=== PATIENT | male | born 1970 | race Caucasian/White ===

== ENCOUNTER → 2020-09-23 10:42 | Outpatient (BNVA) | payer MEDICAID, SELFPAY | PROVIDERS: Family Provider Family Medicine; PCP Nurse Practitioner Family; Visit Provider Nurse Practitioner Family | DX: M54.9 Dorsalgia, unspecified (principal); R81 Glycosuria; Z12.5 Encounter for screening for malignant neoplasm of prostate | CPT/HCPCS: 36416; 81000; 82962; G0103 ==

== ENCOUNTER 2020-09-24 11:52 | Outpatient (CLI) | payer MEDICAID, SELFPAY ==
--- NOTE | 2020-09-24 12:45 | US_ITS ---
WS: [id number] SCROTAL ULTRASOUND EXAMINATION CLINICAL INFORMATION: N50.89 - Other specified disorders of the male genital or... COMPARISON: None. FINDINGS: TESTES Normal in size and echotexture, without focal lesion. Color Doppler: Normal color Doppler flow pattern. Right testes size: 4.7 cm x 2.5 cm x 3.1 cm. Left testes size: 4.5 cm x 2.4 cm x 2.2 cm. EPIDIDYMIDES Right epididymal cyst measuring 3.0 x 2.7 x 2.4 mm. Normal left epididymis. Right epididymis size: 0.9 cm x 0.9 cm x 1.2 cm. Left epididymitis size: 0.9 cm x 0.9 cm x 0.9 cm. HYDROCELE Small bilateral hydroceles. VARICOCELE Left varicocele. OTHER FINDINGS Normal inguinal canals. US/US scrotum [id number] IMPRESSION: 1. Small bilateral hydroceles. 2. Right epididymal cyst measuring 3.0 x 2.7 x 2.4 mm 3. Left varicocele measuring 1.6 x 0.8 cm
== END 2020-09-24 11:53 | disposition home or self-care (01) ==
LOC: RAD 11:54
PROVIDERS: PCP Nurse Practitioner Family; Visit Provider Nurse Practitioner Family
DX: N50.89 Other specified disorders of the male genital organs (principal); N43.3 Hydrocele, unspecified; N50.3 Cyst of epididymis; I86.1 Scrotal varices
CPT/HCPCS: 76870

== ENCOUNTER → 2020-10-08 10:50 | Outpatient (BNVA) | payer MEDICAID, SELFPAY | PROVIDERS: PCP Nurse Practitioner Family; Referring Provider Nurse Practitioner Family; Visit Provider Urology | DX: Z12.5 Encounter for screening for malignant neoplasm of prostate (principal); R97.20 Elevated prostate specific antigen [PSA]; N50.811 Right testicular pain | CPT/HCPCS: 81003; G0103 ==

== ENCOUNTER 2020-10-12 14:24 | Outpatient (CLI) | payer MEDICAID, SELFPAY ==
--- NOTE | 2020-10-12 14:30 | XR_ITS ---
WS: [id number] LUMBAR SPINE TECHNIQUE: 3 views of the lumbar spine CLINICAL INFORMATION: M54.5 - Low back pain COMPARISON: None. FINDINGS: Mild lumbar curve convex left. 5 nonrib-bearing lumbar vertebral bodies. No acute fractures. Trace re trolisthesis L2 on L3 and L3 on L4 and L4 on L5. Disc space narrowing worse at L2-L3, L3-L4, L5-S1. M oderate facet arthropathy L5-S1. XR/XR lumbar spine 2-3V* [id number] IMPRESSION: 1. Mild lumbar curve convex left. 2. Slight retrolisthesis L2 on L3, L3 on L4 and L4 on L5 3. Disc space narrowing worse at L2-L3, L3-L4, L5-S1.
== END 2020-10-12 14:25 | disposition home or self-care (01) ==
PROVIDERS: PCP Nurse Practitioner Family; Visit Provider Nurse Practitioner Family
DX: M54.5 Low back pain (principal)
CPT/HCPCS: 72100

== ENCOUNTER 2020-10-30 14:35 | Outpatient (CLI) | payer MEDICAID, SELFPAY ==
--- NOTE | 2020-10-30 15:15 | MR_ITS ---
WS: [id number] MRI LUMBAR SPINE NONCONTRAST HISTORY: M54.16 - Radiculopathy, lumbar region COMPARISON: None available. TECHNIQUE: Sagittal and axial multisequence imaging is submitted. Increase in the lumbar lordosis. Posterior alignment is normal. No fractures or marrow edema. Mild disc space narrowing and desiccation throughout the lumbar spine but most significant at L5-S1. Conus terminates normally at L1-2 disc level. L1-L2: Normal. L2-L3: Mild annular disc bulging. Small annular fissures within the disc bulging. No focal component. Mild facet hypertrophy. Mild LEFT foraminal narrowing. L3-L4: Mild annular disc bulge with mild facet and ligamentum flavum hypertrophy. Mild bilateral suba rticular recess and LEFT foraminal narrowing. L4-L5: Mild annular disc bulging with a shallow central disc protrusion. Disc protrusion encroaches u preet the L5 nerve roots with no high-grade stenosis or displacement. Mild foraminal narrowing. L5-S1: Mild annular disc bulging. Facet joint arthritis and osteophytes encroach into the lateral rec esses bilaterally. Mild central with moderate LEFT subarticular recess stenosis and mild RIGHT subart icular recess stenosis and mild LEFT foraminal stenosis. MR/MR lumbar spine wo con* [id number] IMPRESSION: 1. Multilevel mild degenerative disc disease with mild to moderate facet arthr itis. 2. Moderate LEFT subarticular recess stenosis at L5-S1. 3. Mild disc protrusion upon the L5 nerve roots bilaterally at L4-5. No signif icant central or foraminal stenosis. 4. Mild central stenosis at L5-S1 with mild RIGHT subarticular recess stenosis .
== END 2020-10-30 14:36 | disposition home or self-care (01) ==
LOC: RADSHAW 14:40
PROVIDERS: PCP Nurse Practitioner Family; Visit Provider Nurse Practitioner Family
DX: M54.16 Radiculopathy, lumbar region (principal); M51.36 Other intervertebral disc degeneration, lumbar region; M51.26 Other intervertebral disc displacement, lumbar region; M48.07 Spinal stenosis, lumbosacral region
CPT/HCPCS: 72148

== ENCOUNTER → 2020-11-10 09:49 | Outpatient (BNVA) | payer MEDICAID, SELFPAY | PROVIDERS: PCP Nurse Practitioner Family; Visit Provider Nurse Practitioner Family | DX: R97.20 Elevated prostate specific antigen [PSA] (principal); E78.5 Hyperlipidemia, unspecified; I10 Essential (primary) hypertension; N50.811 Right testicular pain | CPT/HCPCS: 80053; 80061; 84153 ==

== ENCOUNTER 2021-01-28 14:03 | Outpatient (CLI) | payer MEDICAID, SELFPAY ==
[2021-01-28] MEDS: iohexol 300 mg/mL 50 mL Btl PO (14:28)
--- NOTE | 2021-01-28 14:30 | CT_ITS ---
WS: [id number] CT CHEST AND ABDOMEN WITH CONTRAST HISTORY: R91.1 - Solitary pulmonary nodule/ HEPATIC LESION TECHNIQUE: Axial imaging is performed through the chest and abdomen with IV and oral contrast.. Sagit per and coronal reformats. All CT scans at [facility] use at least one of these dose optimiza tion techniques: automated exposure control; mA and/or kV adjustment per patient size (includes targe bertrand exams where dose is matched to clinical indication); or iterative reconstruction. CONTRAST: Omnipaque 300; 95 mL IV. DLP: 1998.12 mGy-cm. COMPARISON: 08/22/[address]: Well-expanded lungs. There is a small lobulated nodule at the medial LEFT lower lobe measuring 11 x 1 6 mm. This nodule was present on 08/22/2018 without increase in size. No additional suspicious mass or pneumonia. No pericardial or pleural effusions. Heart size is normal. Normal size aorta and pulmonary artery. No adenopathy of any significance. Mild thickening of the inferior esophagus. Mild increase in thoracic kyphosis with degenerative disc disease in the mid to lower thoracic spine. Abdomen CT: Multiple low-attenuation masses within the liver consistent with cysts. These are stable since 08/23/19 19. The largest along the inferior posterior RIGHT lobe measures 3.5 x 3.6 cm. There is also diffuse mild hepatic steatosis. No solid mass or bile duct dilatation. Prior cholecystectomy. Normal spleen a nd adrenal glands. Too small to characterize hypodensity in the mid LEFT kidney. Stable since 2019. N o adrenal mass or obstruction. No adenopathy or ascites. No osteoblastic or osteolytic bone disease. CT/CT chest abdomen w con* IMPRESSION: 1. Long-term stability of a slightly lobulated pulmonary nodule in the medial LEFT lower lobe measuring 11 x 16 mm. 2. Hepatic cysts. Stable since 08/22/2018. 3. Prior cholecystectomy.
[2021-01-28] MEDS: iohexol 300 mg/mL 100 mL Btl IV (14:42)
== END 2021-01-28 14:04 | disposition home or self-care (01) ==
PROVIDERS: PCP Nurse Practitioner Family; Visit Provider Nurse Practitioner Family
DX: K76.9 Liver disease, unspecified (principal); R91.1 Solitary pulmonary nodule; K76.89 Other specified diseases of liver; Z90.49 Acquired absence of other specified parts of digestive tract
CPT/HCPCS: 71260; 74160; Q9967

== ENCOUNTER → 2021-05-10 11:33 | Outpatient (BNVA) | payer MEDICAID, SELFPAY | PROVIDERS: PCP Nurse Practitioner Family; Visit Provider Nurse Practitioner Family | DX: R97.20 Elevated prostate specific antigen [PSA] (principal); R19.7 Diarrhea, unspecified; E04.1 Nontoxic single thyroid nodule; K92.1 Melena; R91.1 Solitary pulmonary nodule | CPT/HCPCS: 84153; 84439; 84443; 87506 ==

== ENCOUNTER → 2021-05-21 09:10 | Outpatient (BNVA) | payer MEDICAID, SELFPAY | PROVIDERS: PCP Nurse Practitioner Family; Visit Provider Surgery | DX: Z20.822 Contact with and (suspected) exposure to COVID-19 (principal) | CPT/HCPCS: 87635 ==

== ENCOUNTER → 2021-06-21 12:06 | Outpatient (BNVA) | payer MEDICAID, SELFPAY | PROVIDERS: PCP Nurse Practitioner Family; Visit Provider Surgery | DX: Z01.812 Encounter for preprocedural laboratory examination (principal); Z20.822 Contact with and (suspected) exposure to COVID-19 | CPT/HCPCS: 87635 ==

== ENCOUNTER 2021-06-23 06:32 | Day surgery (SDC) | payer MEDICAID, SELFPAY ==
[2021-05-24 09:50] VITALS: BMI 30.4
[2021-06-23] MEDS: sodium chloride 0.9% 1,000 ML 30 ML IV (08:13)
--- NOTE | 2021-06-23 08:38 | ANES.PREANE2 ---
Pre-Anesthetic Assessment Height/Weight: Height 1.75 m Weight 95.708 kg Preop Diagnosis: upper gi symptoms Operation Date: 05/26/21 13:00 Proposed Procedures p EGD possilbe balloon dilation 19973\r10.13(Not Applicable) - Isreal Cardenas MD s colonoscopy 82809/k52.9(Not Applicable) - Isreal Cardenas MD Operation Date: 06/23/21 08:45 Proposed Procedures p EGD Possible Dilation 99970/r10.13(Not Applicable) - Isreal Cardenas MD s Colonoscopy(Not Applicable) - Isreal Cardenas MD Familial anesthetic complications: None Was Beta Misys taken within 24 hours: N/A Was Clonidine taken within 24 hours: N/A Last intake: Intake Last Liquid Date 06/22/21 Last Liquid Time 20:00 Last Solid Date 06/21/21 Last Solid Time 19:00 Social No alcohol and No tobacco Exam alert, oriented x 3, clear to auscultation bilaterally and regular rate & rhythm Airway Submandibular: within normal limits Cervical ROM: within normal limits Mallampati: Class II Dentition: false Pulmonary Lung mass GI Gastroesophageal Reflux Disease Anesthetic Plan ASA status: 2 Anesthesia: MAC Medications/Allergies Home Medications Medication Instructions Recorded Confirmed Last Taken Type pantoprazole 40 mg tablet,delayed 40 mg PO BID tab 05/18/21 06/21/21 06/21/21 History release (Protonix) sucralfate 1 gram tablet (Carafate) 1 g PO Q6H tab 05/18/21 06/21/21 06/21/21 History cyclobenzaprine 10 mg tablet 10 mg PO TID PRN #30 tab 06/03/21 06/21/21 06/21/21 Rx Allergies Allergy/AdvReac Type Severity Reaction Status Date / Time No Known Allergies Allergy Verified 06/16/21 08:54 Current Medications Generic Name Dose Route Start Last Admin Trade Name Freq PRN Reason Stop Dose Admin Sodium Chloride 1,000 mls @ 30 mls/hr 06/23/21 07:15 06/23/21 08:13 Sodium Chloride 0.9% IV 06/24/21 07:14 30 mls/hr .Q24H TIFFANY Administration PFSH Anesthesia Medical History GERD (gastroesophageal reflux disease) Testalgia Surgical History H/O esophagogastroduodenoscopy H/O neck surgery for trauma Status post colonoscopy Status post laparoscopic cholecystectomy Family History Father , AT AGE 50'S Lung disease Mother Lung disease COPD Social History Smoking and tobacco status: never smoked Alcohol intake: never Marital status: Current occupational status: unemployed History of recent travel: No Data Anesthesia Cardiac Studies: No Data to Display
--- NOTE | 2021-06-23 08:57 | P.HP_ITS ---
Same Day Surgery H&P Indication for Procedure/HPI DATE OF PROCEDURE: June 23, 2021 CHIEF COMPLAINT/INDICATIONFOR SURGICAL PROCEDURE: GERD/diarrhea PREOP DIAGNOSIS: upper gi symptoms PLANNED PROCEDURE: Operation Date: 05/26/21 13:00 Proposed Procedures p EGD possilbe balloon dilation 66073\r10.13(Not Applicable) - Isreal Cardenas MD s colonoscopy 86115/k52.9(Not Applicable) - Isreal Cardenas MD Operation Date: 06/23/21 08:45 Proposed Procedures p EGD Possible Dilation 85509/r10.13(Not Applicable) - Isreal Cardenas MD s Colonoscopy(Not Applicable) - Isreal Cardenas MD Medications/Allergies* Home Medications Medication Instructions Recorded Confirmed Type pantoprazole 40 mg tablet,delayed 40 mg PO BID tab 05/18/21 06/21/21 History release (Protonix) sucralfate 1 gram tablet (Carafate) 1 g PO Q6H tab 05/18/21 06/21/21 History Allergies/Adverse Reactions Allergy/AdvReac Type Severity Reaction Status Date / Time No Known Allergies Allergy Verified 06/16/21 08:54 Current Medications: Generic Name Dose Route Start Last Admin Trade Name Freq PRN Reason Stop Dose Admin Sodium Chloride 1,000 mls @ 30 mls/hr 06/23/21 07:15 06/23/21 08:13 Sodium Chloride 0.9% IV 06/24/21 07:14 30 mls/hr .Q24H TIFFANY Administration Pertinent History/Comorbid Conditions* Medical History (Updated 06/17/21 @ 00:23 by Eduar Esposito MD) GERD (gastroesophageal reflux disease) Testalgia Surgical History (Updated 05/18/21 @ 14:06 by Isreal Cardenas MD) H/O esophagogastroduodenoscopy H/O neck surgery for trauma Status post colonoscopy Status post laparoscopic cholecystectomy Family History (Updated 10/08/20 @ 10:46 by Dayana Kerns LPN) Father, AT AGE 50'S Lung disease Father Mother COPD Social History Smoking and tobacco status: never smoked Alcohol intake: never Marital status: Current occupational status: unemployed History of recent travel: No Pertinent Exam Findings alert, oriented x 3 and regular rate & rhythm Recommendations Surgery/Procedure today Coding Level of Care Code Acute Press Operator Automatic for Chg Fwtino
[2021-06-23 09:31] VITALS: BP 109/72; PULSE 84; RESP 12; TEMP 36.1; O2SAT 97
--- NOTE | 2021-06-23 09:32 | ANE.PACU2 ---
Inpatient post-anesthesia follow up: Airway intact: Yes Vital signs: Temperature Pulse Rate Respiratory Rate Blood Pressure Pulse Oximetry Oxygen Delivery Me thod Room Air Oxygen Flow Rate Fraction of Inspir ed Oxygen Hydration adequate: Yes Nausea and vomiting: No Pain level: 1 Mental status: Baseline
[2021-06-23 09:43] VITALS: BP 113/85; PULSE 76; RESP 16; O2SAT 96
== END 2021-06-23 10:04 | disposition home or self-care (01) ==
PROVIDERS: PCP Nurse Practitioner Family; Visit Provider Surgery
PROC: 0DJD8ZZ Inspection of Lower Intestinal Tract, Via Natural or Artificial Opening Endoscopic (ICD-10-PCS; CPT 45378; 2021-06-23 08:45)
DX: K52.9 Noninfective gastroenteritis and colitis, unspecified (principal); R10.13 Epigastric pain; R13.12 Dysphagia, oropharyngeal phase; K29.70 Gastritis, unspecified, without bleeding; K57.30 Diverticulosis of large intestine without perforation or abscess without bleeding
CPT/HCPCS: 43239; 45380; 82274; 83630; 87493; 87506; 88305; J2704; J7030

== ENCOUNTER 2021-07-08 09:44 | Outpatient (CLI) | payer MEDICAID, SELFPAY ==
--- NOTE | 2021-07-08 10:15 | MR_ITS ---
WS: [id number] MRI LUMBAR SPINE NONCONTRAST TECHNIQUE: Sagittal T1, T2 and STIR imaging. Axial T1 and T2 imaging. CLINICAL INFORMATION: M54.9 - Dorsalgia, unspecified COMPARISON: MRI October 30, 2020 FINDINGS: Mild lumbar curve. No acute compression. Mild disc bulging L2-L3 L3-L4 and L4-L5. Alignment is unchan ged since October 30, 2020. L1-L2: Mild disc bulging and osteophytic ridging. Moderate facet arthropathy. Spinal canal and forame n are patent. L2-L3: Mild disc bulging and osteophytic ridging. Slight retrolisthesis. Impingement subarticular rec ess bilaterally and traversing L3 nerve roots. Moderate facet arthropathy. Mild central canal stenosi s. L3-L4: Mild annular bulging with slight effacement of ventral thecal sac. Mild facet arthropathy. Mil d RIGHT and no significant LEFT foraminal narrowing. L4-L5: Mild annular bulging with slight effacement of the ventral thecal sac. Mild central canal sten osis. Slight narrowing of the LEFT subarticular recess. Mild facet arthropathy. Foramen are patent. L5-S1: Mild disc bulging and osteophytic ridging. Slight narrowing of the subarticular recess bilater ally. Moderate facet arthropathy. Spinal canal and foramen are patent. Postoperative changes ACDF cervical spine seen on the emts imaging. Small central protrusion in the lower thoracic spine at T10 and T11. MR/MR lumbar spine wo con* [id number] IMPRESSION: 1. Slight retrolisthesis L2-L3 with mild central canal stenosis and slight nilton rowing of the subarticular recess bilaterally appears slightly progressed tony red to previous. 2. Mild central canal stenosis L3-L4 and L4-L5 with mild annular bulging and s light impingement traversing LEFT L5 nerve root appears stable compared to prev ious. 3. Mild annular bulging L5-S1 with slight impingement traversing S1 nerve root s bilaterally. This is unchanged from previous. 4. Mild RIGHT L2-L3 RIGHT L3-L4 and bilateral L4-L5 foraminal narrowing. 5. Lfxn-gv-nqdzahuk facet arthropathy worse at L2-L3, L4-L5 and L5-S1.
== END 2021-07-08 09:45 | disposition home or self-care (01) ==
LOC: RAD 09:45
PROVIDERS: PCP Nurse Practitioner Family; Visit Provider Nurse Practitioner Family
DX: R20.0 Anesthesia of skin (principal); M48.061 Spinal stenosis, lumbar region without neurogenic claudication; M51.26 Other intervertebral disc displacement, lumbar region; M47.816 Spondylosis without myelopathy or radiculopathy, lumbar region; M47.817 Spondylosis without myelopathy or radiculopathy, lumbosacral region
CPT/HCPCS: 72148

== ENCOUNTER → 2021-07-14 08:02 | Outpatient (BNVA) | payer MEDICAID, SELFPAY | PROVIDERS: PCP Nurse Practitioner Family; Visit Provider Internal Medicine Pulmonary Disease | DX: R91.1 Solitary pulmonary nodule (principal); R06.00 Dyspnea, unspecified; R42 Dizziness and giddiness; Z77.22 Contact with and (suspected) exposure to environmental tobacco smoke (acute) (chronic); K21.9 Gastro-esophageal reflux disease without esophagitis; R97.20 Elevated prostate specific antigen [PSA]; R13.10 Dysphagia, unspecified | CPT/HCPCS: 36415; 85025; 99214 ==

== ENCOUNTER 2021-07-14 09:30 | Outpatient (CLI) | payer MEDICAID, SELFPAY | END 2021-07-14 09:31 | disposition home or self-care (01) | LOC: LAB 09:31 | PROVIDERS: PCP Nurse Practitioner Family; Visit Provider Internal Medicine Pulmonary Disease | DX: R91.1 Solitary pulmonary nodule (principal); R06.00 Dyspnea, unspecified; R06.02 Shortness of breath | CPT/HCPCS: 82785; 83880; 86003; 99214 ==

== ENCOUNTER 2021-07-23 13:46 | Outpatient (CLI) | payer MEDICAID, SELFPAY ==
--- NOTE | 2021-07-23 14:00 | US_ITS ---
WS: [id number] THYROID ULTRASOUND HISTORY: E04.1 - Nontoxic single thyroid nodule COMPARISON: None available. Right lobe: 1.3 cm x 1.5 cm x 4.9 cm (w x ap x l). Volume: 5.3 cm3. Normal size thyroid. There are several benign colloid cysts throughout the gland. Spongiform nodule i n the mid gland measures 1.0 x 0.7 x 0.6 cm. Left lobe: 1.6 cm x 1.5 cm x 4.9 cm (w x ap x l). Volume: 6.3 cm3. Normal size gland. There are a few small colloid cysts. No dominant solid nodule. Isthmus: 0.3 cm. There are several small benign-appearing cervical chain lymph nodes. US/US thyroid 51459 IMPRESSION: 1. Normal size thyroid. 2. No solid nodule with concerning calcifications. 3. Bilateral colloid nodules and RIGHT spongiform nodule. Please note recent P ET/CT imaging from 07/03/2021 demonstrated no areas of hypermetabolism in the th yroid.
== END 2021-07-23 13:47 | disposition home or self-care (01) ==
PROVIDERS: PCP Nurse Practitioner Family; Visit Provider Nurse Practitioner Family
DX: E04.2 Nontoxic multinodular goiter (principal)
CPT/HCPCS: 76536

== ENCOUNTER → 2021-08-03 08:40 | Outpatient (BNVA) | payer MEDICAID, SELFPAY | PROVIDERS: PCP Nurse Practitioner Family; Visit Provider Nurse Practitioner Family | DX: R97.20 Elevated prostate specific antigen [PSA] (principal) | CPT/HCPCS: 84153 ==

== ENCOUNTER 2022-01-20 10:01 | Oncology outpatient (recurring) (ONCR) | payer MEDICAID, SELFPAY ==
--- NOTE | 2022-01-20 11:35 | N.ONRAD NP_ITS ---
Radiation Oncology Consultation Patient Name: Jone Boogie Date of : 1970 Date of Service: 01/20/2022 Attending Physician: Robert Damon M.D. Jone Boogie was seen in consultation this morning at the request of Marcelo Coelho M.D. for consideration of prostate radiotherapy in the management of prostate cancer. He initially was identified to have an elevated PSA level (6.7 ng/mL) in September 2020. A transrectal ultrasound-guided biopsy of the prostate gland performed in December 2020 diagnosed atypical small acinar proliferation (PAYTON) within the left lobe. A PSA level obtained in July of 2021 was 10.8 ng/mL. A repeat TRUS biopsy obtained on September 14, 2021 identified an adenocarcinoma from the left lobe of the prostate with a Mary score of 6 (1/6 cores with 5% of the sample involved) and PAYTON reported in the specimens from the right and left lobes. A Genomic Prostate Score reported a result of 33 indicating a low likelihood of adverse pathology at radical prostatectomy. A PSMA scan ordered on November 30, 2021 identified activity in the peripheral zones of the prostate bilaterally (SUV 4.8), the left sixth rib (SUV 5.3), and subtle increase of tracer accumulation in the bilateral iliac bones that was associated with sclerotic changes. The patient presents for evaluation regarding radiotherapy treatment options. I discussed the [place] [employer] Staging for prostate cancer and the patient's presumed clinical stage IIA (T1CN0) favorable intermediate risk prostate cancer specific to the his diagnosis. In consideration of the PSMA scan findings, I will request a biopsy of the rib lesion. I have also ordered labs (CBC, CMP, PSA, & Testosterone). Treatment recommendations will be provided pending the results of the biopsy. The patient???s treatment plan was discussed with Marcelo Coelho M.D. Signed by: Dr. Robert Damon 02/04/2022 10:32:17 AM
[2022-01-20 13:05] LABS: Basophils # 0.1 10^3/uL (0.0-0.1); Eosinophils # 0.2 10^3/uL (0.0-0.8); Eosinophils % 2.6 %; Hematocrit 46.5 % (42.0-52.0); Hemoglobin 15.8 g/dL (11.7-16.6); Lymphocytes # 2.1 10^3/uL (0.8-4.8); Mean Corpuscular Hemoglobin 30.5 pg (28.0-34.0); Mean Corpuscular Volume 89.8 fl (80-94); Mean Platelet Volume 8.8 fL (7.4-10.4); Monocytes # 0.6 10^3/uL (0.2-0.9); Monocytes % 10.7 %; Neutrophils # 2.81 10^3/uL (1.8-7.7); Neutrophils % 48.7 %; Nucleated Red Blood Cells % 0 %; Platelet Count 264 10^3/cmm (130-400); Red Blood Count 5.18 10^6/uL (4.1-5.3); Red Cell Distribution Width 11.9 % (12.1-15.1); White Blood Count 5.8 10^3/uL (4.0-10.0)
[2022-01-20 13:44] LABS: Alanine Aminotransferase 25 U/L (0-41); Albumin Level 4.5 g/dL (3.5-5.2); Alkaline Phosphatase 104 U/L (40-130); Anion Gap 12.7 (5-19); Aspartate Amino Transferase 18 U/L (0-40); Blood Urea Nitrogen 11 mg/dL (6-20); Calcium 9.1 mg/dL (8.5-10.5); Carbon Dioxide 28 mmol/L (22-29); Chloride 103 mmol/L (98-107); Globulin 2.4 g/dL (1.3-4.6); Glomerular Filtration Rate 78.2 mL/min (90-130); Glucose 91 mg/dL (65-115); Osmolality Calculated 287 mOsm/kg (285-295); Potassium 4.7 mmol/L (3.5-5.1); Sodium 139 mmol/L (136-145); Testosterone Total 327.9 ng/dL (193-740); Total Bilirubin 0.6 mg/dL (0.15-1.2); Total Protein 6.9 g/dL (6.6-8.7)
== END 2022-01-21 23:59 | disposition home or self-care (01) ==
PROVIDERS: PCP Nurse Practitioner Family; Visit Provider Radiology Radiation Oncology
DX: C61 Malignant neoplasm of prostate (principal)
CPT/HCPCS: 36415; 80053; 84153; 84403; 85025

== ENCOUNTER 2022-02-10 14:39 | Oncology outpatient (recurring) (ONCR) | payer MEDICAID, SELFPAY ==
--- NOTE | 2022-02-04 10:28 | ONCRAD EPV_ITS ---
Radiation Oncology Follow-Up Note Patient Name: Jone Boogie Date of : 1970 Date of Service: 02/04/2022 Attending Physician: Robert Damon M.D. Jone Boogie returned for a scheduled appointment to discuss the treatment management for a recently diagnosed prostate cancer. He initially was identified to have an elevated PSA level (6.7 ng/mL) in September 2020. A transrectal ultrasound-guided biopsy of the prostate gland performed in December 2020 diagnosed atypical small acinar proliferation (PAYTON) within the left lobe. A PSA level obtained in July of 2021 was 10.8 ng/mL. A repeat TRUS biopsy obtained on 2021 identified an adenocarcinoma from the left lobe of the prostate with a Nixon score of 6 (1/6 cores with 5% of the sample involved) and PAYTON reported in the specimens from the right and left lobes. A Genomic Prostate Score reported a result of 33 indicating a low likelihood of adverse pathology at radical prostatectomy. A PSMA scan ordered on November 30, 2021 identified activity in the peripheral zones of the prostate bilaterally (SUV 4.8), the left sixth rib (SUV 5.3), and subtle increase of tracer accumulation in the bilateral iliac bones that was associated with sclerotic changes. A biopsy was not able to be performed due to size. I will request a medical oncology consultation for ADT prior to implementation of radiation treatment. I reviewed the potential toxicities of pelvic radiotherapy. The patient has verbalized understanding would like to proceed as recommended. Signed by: Dr. Robert Damon 02/04/2022 10:27:55 AM
== END 2022-02-21 23:59 | disposition home or self-care (01) ==
PROVIDERS: PCP Nurse Practitioner Family; Visit Provider Radiology Radiation Oncology
DX: C61 Malignant neoplasm of prostate (principal); M89.9 Disorder of bone, unspecified
CPT/HCPCS: 99204; 99215

== ENCOUNTER 2022-03-03 09:12 | Oncology outpatient (recurring) (ONCR) | payer MEDICAID, SELFPAY ==
[2022-03-03 09:32] VITALS: BP 124/84; PULSE 100; RESP 18; TEMP 36.6; O2SAT 98
[2022-03-03] MEDS: leuprolide 22.5 mg Kit IM (09:50)
[2022-03-03 10:10] VITALS: BP 143/78; PULSE 93; RESP 18; TEMP 37.2; O2SAT 98
== END 2022-03-23 23:59 | disposition home or self-care (01) ==
PROVIDERS: PCP Nurse Practitioner Family; Visit Provider Radiology Radiation Oncology
DX: C61 Malignant neoplasm of prostate (principal); M89.9 Disorder of bone, unspecified; C79.51 Secondary malignant neoplasm of bone; Z79.899 Other long term (current) drug therapy
CPT/HCPCS: 96402; J9217

== ENCOUNTER 2022-04-15 07:53 | Outpatient (CLI) | payer MEDICAID, SELFPAY ==
--- NOTE | 2022-04-15 09:43 | NM_ITS ---
WS: [id number] NUCLEAR MEDICINE BONE SCAN Radiopharmaceutical: 26.3 Tc-99m MDP mCi IV Injection site: antecubital Postinjection imaging delay: 1 hr CLINICAL INFORMATION: Initial COMPARISON: PET/CT November 30, 2021 FINDINGS: Bone lesions: There are no osseous lesions suspicious for metastatic disease. LEFT anterolateral ribs are normal in appearance. Soft tissue contours: Normal. Kidneys: Normal. Other findings: Degenerative uptake both AC joints and sternoclavicular joints. NM/NM bone scan whole body* [id number] IMPRESSION: No evidence of osseous metastatic disease.
== END 2022-04-15 07:54 | disposition home or self-care (01) ==
LOC: RAD 07:54
PROVIDERS: PCP Nurse Practitioner Family; Visit Provider Internal Medicine Hematology & Oncology
DX: C61 Malignant neoplasm of prostate (principal); C79.82 Secondary malignant neoplasm of genital organs
CPT/HCPCS: 78306; A9561

== ENCOUNTER 2022-04-20 10:37 | Oncology outpatient (recurring) (ONCR) | payer MEDICAID, SELFPAY ==
[2022-03-31 14:31] LABS: Basophils # 0.1 10^3/uL (0.0-0.1); Eosinophils # 0.1 10^3/uL (0.0-0.8); Eosinophils % 1.7 %; Hematocrit 42.5 % (42.0-52.0); Hemoglobin 14.8 g/dL (11.7-16.6); Lymphocytes % 27.8 %; Mean Corpuscular HGB Conc 34.8 g/dL (30.0-36.0); Mean Corpuscular Hemoglobin 30.7 pg (28.0-34.0); Mean Corpuscular Volume 88.2 fl (80-94); Mean Platelet Volume 8.3 fL (7.4-10.4); Monocytes # 0.6 10^3/uL (0.2-0.9); Monocytes % 8.5 %; Neutrophils # 4.27 10^3/uL (1.8-7.7); Neutrophils % 60.9 %; Nucleated Red Blood Cells % 0 %; Platelet Count 251 10^3/cmm (130-400); Red Blood Count 4.82 10^6/uL (4.1-5.3); Red Cell Distribution Width 11.7 % (12.1-15.1)
[2022-03-31 14:58] LABS: Alanine Aminotransferase 22 U/L (0-41); Albumin Level 4.2 g/dL (3.5-5.2); Alkaline Phosphatase 93 U/L (40-130); Anion Gap 12.1 (5-19); Aspartate Amino Transferase 14 U/L (0-40); Blood Urea Nitrogen 10 mg/dL (6-20); Calcium 9.1 mg/dL (8.5-10.5); Carbon Dioxide 28 mmol/L (22-29); Chloride 101 mmol/L (98-107); Globulin 2.7 g/dL (1.3-4.6); Glomerular Filtration Rate 88.3 mL/min (90-130); Glucose 87 mg/dL (65-115); Osmolality Calculated 282 mOsm/kg (285-295); Potassium 4.1 mmol/L (3.5-5.1); Sodium 137 mmol/L (136-145); Total Bilirubin 0.4 mg/dL (0.15-1.2); Total Protein 6.9 g/dL (6.6-8.7)
--- NOTE | 2022-03-31 16:46 | XR_ITS ---
WS: [id number] EXAMINATION: XR chest 2V* [id number] REASON FOR EXAM: Special attention to pain points in Ribs COMPARISON: 08/22/2018 ORDER DATE: 03/31/2022 4:46 PM FINDINGS: The lungs are clear of infiltrate. The cardiac and mediastinal outlines are unremarkable. There ar e no significant pleural effusions . No significant abnormalities are noted in the spine or remainder of the bony thorax including the ribs. XR/XR chest 2V* [id number] IMPRESSION: NO ACUTE PULMONARY CHANGE.
--- NOTE | 2022-04-20 | CT_ITS ---
Radiation Therapy Planning CT images; total exam DLP: 851.12 mGy-cm MTDD
== END 2022-04-23 23:59 | disposition home or self-care (01) ==
PROVIDERS: Internal Medicine Hematology & Oncology; PCP Nurse Practitioner Family; Visit Provider Radiology Radiation Oncology
DX: C61 Malignant neoplasm of prostate (principal); M89.9 Disorder of bone, unspecified; C79.51 Secondary malignant neoplasm of bone; Z79.899 Other long term (current) drug therapy; Z51.11 Encounter for antineoplastic chemotherapy
CPT/HCPCS: 36415; 71046; 77300; 77301; 77334; 77338; 77470; 80053; 84153; 85025; 99214

== ENCOUNTER 2022-05-23 12:07 | Oncology outpatient (recurring) (ONCR) | payer MEDICAID, SELFPAY ==
--- NOTE | 2022-04-26 15:35 | ONCRAD TMN_ITS ---
Radiation Oncology Treatment Management Note Patient Name: Jone Boogie Date of : 1970 Date of Service: 04/26/2022 Attending Physician: Robert Damon M.D. Jone Boogie is a 51 year old white male diagnosed with a clinical stage IIA (T1cN0) favorable intermediate-risk prostate cancer versus low-volume metastatic disease. He initially was identified to have an elevated PSA level (6.7 ng/mL) in September 2020. A transrectal ultrasound-guided biopsy of the prostate gland performed in December 2020 diagnosed atypical small acinar proliferation (PAYTON) within the left lobe. A PSA level obtained in July of 2021 was 10.8 ng/mL. A repeat TRUS biopsy obtained on 2021 identified an adenocarcinoma from the left lobe of the prostate with a Mary score of 6 (1/6 cores with 5% of the sample involved) and PAYTON reported in the specimens from the right and left lobes. A Genomic Prostate Score reported a result of 33 indicating a low likelihood of adverse pathology at radical prostatectomy. A PSMA scan ordered on November 30, 2021 identified activity in the peripheral zones of the prostate bilaterally (SUV 4.8), the left sixth rib (SUV 5.3), and subtle increase of tracer accumulation in the bilateral iliac bones that was associated with sclerotic changes. A biopsy was not able to be performed due to size. Androgen deprivation therapy (Lupron) was administered on March 03, 2022. A nuclear bone scintigraphy scan obtained on April 15, 2022 did not reveal any osseous lesions suspicious for metastatic disease. The patient has received 3 Gy of a prescribed 60 Tavarez to the prostate with an intensity modulated radiotherapy plan utilizing a step and shoot treatment technique. Upon review of systems, he denied any gastrointestinal or genitourinary complaints related to radiotherapy. Continue prostate radiotherapy as prescribed. Signed by: Dr. Robert Damon 04/26/2022 3:34:37 PM
[2022-04-29 08:43] LABS: Bilirubin Urine Neg (Negative); Blood Urine Neg (Negative); Glucose Urine UA Norm (Normal); Ketones Urine Negative (Negative); Leukocyte Esterase Urine Negative (Negative); Nitrate Urine Negative (Negative); Protein Urine Neg (Negative); Specific Gravity, Urine 1.015 (1.005-1.030); Urine Appearance Clear (CLEAR); Urine Color Yellow (Yellow); Urobilinogen Urine Neg (Negative); pH Urine 6.5 (5-7)
[2022-04-29 08:46] LABS: RBC Urine 0-4 /hpf (0-2)
[2022-05-02 16:12] LABS: Bilirubin Urine Neg (Negative); Blood Urine Neg (Negative); Glucose Urine UA Norm (Normal); Ketones Urine Negative (Negative); Leukocyte Esterase Urine Negative (Negative); Mucus Urine 1+ /hpf; Nitrate Urine Negative (Negative); Protein Urine Trace (Negative); Sperm Urine 1+ /hpf; Urine Appearance Clear (CLEAR); Urine Color Yellow (Yellow); Urobilinogen Urine Neg (Negative); pH Urine 6 (5-7)
[2022-05-02 16:13] LABS: Add Urine Culture? No
--- NOTE | 2022-05-03 14:22 | ONCRAD TMN_ITS ---
Radiation Oncology Treatment Management Note Patient Name: Jone Boogie Date of : 1970 Date of Service: 05/03/2022 Attending Physician: Robert Damon M.D. Jone Boogie is a 51 year old white male diagnosed with a clinical stage IIA (T1cN0) favorable intermediate-risk prostate cancer versus low-volume metastatic disease. He initially was identified to have an elevated PSA level (6.7 ng/mL) in September 2020. A transrectal ultrasound-guided biopsy of the prostate gland performed in December 2020 diagnosed atypical small acinar proliferation (PAYTON) within the left lobe. A PSA level obtained in July of 2021 was 10.8 ng/mL. A repeat TRUS biopsy obtained on 2021 identified an adenocarcinoma from the left lobe of the prostate with a Mary score of 6 (1/6 cores with 5% of the sample involved) and PAYTON reported in the specimens from the right and left lobes. A Genomic Prostate Score reported a result of 33 indicating a low likelihood of adverse pathology at radical prostatectomy. A PSMA scan ordered on November 30, 2021 identified activity in the peripheral zones of the prostate bilaterally (SUV 4.8), the left sixth rib (SUV 5.3), and subtle increase of tracer accumulation in the bilateral iliac bones that was associated with sclerotic changes. A biopsy was not able to be performed due to size. Androgen deprivation therapy (Lupron) was administered on March 03, 2022. A nuclear bone scintigraphy scan obtained on April 15, 2022 did not reveal any osseous lesions suspicious for metastatic disease. The patient has received 15 Gy of a prescribed 60 Tavarez to the prostate with an intensity modulated radiotherapy plan utilizing a step and shoot treatment technique. Upon review of systems, he described continued dysuria and new onset diarrhea. On physical examination, the patient weighed 203 lbs. His temperature was 98.5 ???F and the blood pressure was 119/79 mmHg. The pulse was 74 bpm and his respiratory rate was 16. There was no erythema within the treatment donahue. Continue prostate radiotherapy as planned. He has had two negative urinalyses. I will prescribe levofloxacin for prostatitis and recommend Imodium for diarrhea. Signed by: Dr. Robert Damon 05/03/2022 3:35:53 PM
--- NOTE | 2022-05-10 15:03 | ONCRAD TMN_ITS ---
Radiation Oncology Treatment Management Note Patient Name: Jone Boogie Date of : 1970 Date of Service: 05/10/2022 Attending Physician: Robert Damon M.D. Jone Boogie is a 51 year old white male diagnosed with a clinical stage IIA (T1cN0) favorable intermediate-risk prostate cancer versus low-volume metastatic disease. He initially was identified to have an elevated PSA level (6.7 ng/mL) in September 2020. A transrectal ultrasound-guided biopsy of the prostate gland performed in December 2020 diagnosed atypical small acinar proliferation (PAYTON) within the left lobe. A PSA level obtained in July of 2021 was 10.8 ng/mL. A repeat TRUS biopsy obtained on 2021 identified an adenocarcinoma from the left lobe of the prostate with a Mary score of 6 (1/6 cores with 5% of the sample involved) and PAYTON reported in the specimens from the right and left lobes. A Genomic Prostate Score reported a result of 33 indicating a low likelihood of adverse pathology at radical prostatectomy. A PSMA scan ordered on November 30, 2021 identified activity in the peripheral zones of the prostate bilaterally (SUV 4.8), the left sixth rib (SUV 5.3), and subtle increase of tracer accumulation in the bilateral iliac bones that was associated with sclerotic changes. A biopsy was not able to be performed due to size. Androgen deprivation therapy (Lupron) was administered on March 03, 2022. A nuclear bone scintigraphy scan obtained on April 15, 2022 did not reveal any osseous lesions suspicious for metastatic disease. The patient has received 30 Gy of a prescribed 60 Tavarez to the prostate with an intensity modulated radiotherapy plan utilizing a step and shoot treatment technique. Upon review of systems, he denied any complaints. On physical examination, the patient weighed 198 lbs. His temperature was 98.3 ???F and the blood pressure was 117/73 mmHg. The pulse was 89 bpm and his respiratory rate was 18. There was no erythema within the treatment donahue. Continue prostate radiotherapy as prescribed. Signed by: Dr. Robert Damon 05/10/2022 3:02:01 PM
--- NOTE | 2022-05-17 14:19 | ONCRAD TMN_ITS ---
Radiation Oncology Treatment Management Note Patient Name: Jone Boogie Date of : 1970 Date of Service: 05/17/2022 Attending Physician: Robert Damon M.D. Jone Boogie is a 51 year old white male diagnosed with a clinical stage IIA (T1cN0) favorable intermediate-risk prostate cancer versus low-volume metastatic disease. He initially was identified to have an elevated PSA level (6.7 ng/mL) in September 2020. A transrectal ultrasound-guided biopsy of the prostate gland performed in December 2020 diagnosed atypical small acinar proliferation (PAYTON) within the left lobe. A PSA level obtained in July of 2021 was 10.8 ng/mL. A repeat TRUS biopsy obtained on 2021 identified an adenocarcinoma from the left lobe of the prostate with a Mary score of 6 (1/6 cores with 5% of the sample involved) and PAYTON reported in the specimens from the right and left lobes. A Genomic Prostate Score reported a result of 33 indicating a low likelihood of adverse pathology at radical prostatectomy. A PSMA scan ordered on November 30, 2021 identified activity in the peripheral zones of the prostate bilaterally (SUV 4.8), the left sixth rib (SUV 5.3), and subtle increase of tracer accumulation in the bilateral iliac bones that was associated with sclerotic changes. A biopsy was not able to be performed due to size. Androgen deprivation therapy (Lupron) was administered on March 03, 2022. A nuclear bone scintigraphy scan obtained on April 15, 2022 did not reveal any osseous lesions suspicious for metastatic disease. The patient has received 45 Gy of a prescribed 60 Tavarez to the prostate with an intensity modulated radiotherapy plan utilizing a step and shoot treatment technique. Upon review of systems, he reported constipation. On physical examination, the patient weighed 206 lbs. His temperature was 97.2 ???F and the blood pressure was 141/88 mmHg. The pulse was 59 bpm and his respiratory rate was 18. There was no erythema within the treatment donahue. Continue prostate radiotherapy as planned. I recommended generic MiraLax. Signed by: Dr. Robert Damon 05/17/2022 2:25:16 PM
== END 2022-05-24 23:59 | disposition home or self-care (01) ==
PROVIDERS: PCP Nurse Practitioner Family; Visit Provider Radiology Radiation Oncology
DX: C61 Malignant neoplasm of prostate (principal); M89.9 Disorder of bone, unspecified; C79.51 Secondary malignant neoplasm of bone; Z79.899 Other long term (current) drug therapy; Z51.11 Encounter for antineoplastic chemotherapy; Z51.0 Encounter for antineoplastic radiation therapy; Z79.818 Long term (current) use of other agents affecting estrogen receptors and estrogen levels; R07.81 Pleurodynia; Z79.891 Long term (current) use of opiate analgesic
CPT/HCPCS: 77300; 77301; 77336; 77338; 77385; 81001; 99024; 99213; 99214

== ENCOUNTER → 2022-05-30 10:58 | Outpatient (BNVA) | payer MEDICAID, SELFPAY | PROVIDERS: PCP Nurse Practitioner Family; Visit Provider Nurse Practitioner Family | DX: Z13.6 Encounter for screening for cardiovascular disorders (principal) | CPT/HCPCS: 80053; 80061; 83036; 84153; 84403; 85025 ==

== ENCOUNTER 2022-06-13 15:00 | Oncology outpatient (recurring) (ONCR) | payer MEDICAID, SELFPAY ==
--- NOTE | 2022-05-25 14:38 | ONCRAD TMN_ITS ---
Radiation Oncology Treatment Management Note Patient Name: Jone Boogie Date of : 1970 Date of Service: 05/25/2022 Attending Physician: Robert Damon M.D. Jone Boogie is a 51 year old white male diagnosed with a clinical stage IIA (T1cN0) favorable intermediate-risk prostate cancer versus low-volume metastatic disease. He initially was identified to have an elevated PSA level (6.7 ng/mL) in September 2020. A transrectal ultrasound-guided biopsy of the prostate gland performed in December 2020 diagnosed atypical small acinar proliferation (PAYTON) within the left lobe. A PSA level obtained in July of 2021 was 10.8 ng/mL. A repeat TRUS biopsy obtained on 2021 identified an adenocarcinoma from the left lobe of the prostate with a Mary score of 6 (1/6 cores with 5% of the sample involved) and PAYTON reported in the specimens from the right and left lobes. A Genomic Prostate Score reported a result of 33 indicating a low likelihood of adverse pathology at radical prostatectomy. A PSMA scan ordered on November 30, 2021 identified activity in the peripheral zones of the prostate bilaterally (SUV 4.8), the left sixth rib (SUV 5.3), and subtle increase of tracer accumulation in the bilateral iliac bones that was associated with sclerotic changes. A biopsy was not able to be performed due to size. Androgen deprivation therapy (Lupron) was administered on March 03, 2022. A nuclear bone scintigraphy scan obtained on April 15, 2022 did not reveal any osseous lesions suspicious for metastatic disease. The patient has received 57 Gy of a prescribed 60 Tavarez to the prostate with an intensity modulated radiotherapy plan utilizing a step and shoot treatment technique. Upon review of systems, he continues to have IBS symptoms. On physical examination, the patient weighed 206 lbs. His temperature was 976.9 ???F and the blood pressure was 119/81 mmHg. The pulse was 80 bpm and his respiratory rate was 16. Continue prostate radiotherapy as prescribed. Signed by: Dr. Robert Damon 05/25/2022 2:36:51 PM
--- NOTE | 2022-05-27 07:58 | N.ONRD TS_ITS ---
Radiation OncologyTreatment Summary Patient Name: Jone Boogie Date of : 1970 Date of Service: 05/27/2022 Attending Physician: Robert Damon M.D. Jone Boogie has completed prostate radiotherapy for the management of a clinical stage IIA (T1cN0) favorable intermediate-risk prostate cancer versus low-volume metastatic disease. He initially was identified to have an elevated PSA level (6.7 ng/mL) in September 2020. A transrectal ultrasound-guided biopsy of the prostate gland performed in December 2020 diagnosed atypical small acinar proliferation (PAYTON) within the left lobe. A PSA level obtained in July of 2021 was 10.8 ng/mL. A repeat TRUS biopsy obtained on 2021 identified an adenocarcinoma from the left lobe of the prostate with a Mary score of 6 (1/6 cores with 5% of the sample involved) and PAYTON reported in the specimens from the right and left lobes. A Genomic Prostate Score reported a result of 33 indicating a low likelihood of adverse pathology at radical prostatectomy. A PSMA scan ordered on November 30, 2021 identified activity in the peripheral zones of the prostate bilaterally (SUV 4.8), the left sixth rib (SUV 5.3), and subtle increase of tracer accumulation in the bilateral iliac bones that was associated with sclerotic changes. A biopsy was not able to be performed due to size. A nuclear bone scintigraphy scan obtained on April 15, 2022 did not reveal any osseous lesions suspicious for metastatic disease. Daily radiotherapy was administered between the dates of April 27, 2022 through May 26, 2022. A prescribed dose of 60 Gy was delivered in 20 fractions encompassing 29 elapsed days. The prostate gland and proximal seminal vesicles were treated utilizing an IMRT plan using a step and shoot treatment technique. The plan arranged seven gantry angles (0???, 41???, 82???, 123???, 237???, 278???, and 319???) replicating an arc. The collimator rotation was 0???. The field sizes measured between 8.3cm x 9 cm to 10.8 cm x 9.3 cm. The SSDs measured a minimum of 80.7 cm to a maximum of 88.3 cm. The ports delivered 316 MU, 192 MU, 248 MU, 115 MU, 127 MU, 247 MU, and 216 MU corresponding to the gantry angles described. All treatments were performed on the CPM Braxis linear accelerator with an isocentric technique. The dose was calculated by Anisotropic Analytic Algorithm. A photon energy of 6 MV was prescribed. The plan was normalized to deliver 100% of the prescription dose to 95% of the planning target volume. Androgen deprivation therapy (Lupron) was initiated on March 03, 2022. Signed by: Dr. Robert Damon 05/27/2022 8:24:38 AM
[2022-06-13 14:02] LABS: Basophils # 0.1 10^3/uL (0.0-0.1); Basophils % 1.4 %; Eosinophils # 0.1 10^3/uL (0.0-0.8); Eosinophils % 2.8 %; Hematocrit 38.1 % (42.0-52.0); Hemoglobin 13.6 g/dL (11.7-16.6); Mean Corpuscular HGB Conc 35.7 g/dL (30.0-36.0); Mean Corpuscular Hemoglobin 31.1 pg (28.0-34.0); Mean Platelet Volume 8.8 fL (7.4-10.4); Monocytes # 0.5 10^3/uL (0.2-0.9); Monocytes % 11.1 %; Neutrophils # 2.65 10^3/uL (1.8-7.7); Neutrophils % 61.5 %; Nucleated Red Blood Cells % 0 %; Platelet Count 260 10^3/cmm (130-400); Red Blood Count 4.38 10^6/uL (4.1-5.3); Red Cell Distribution Width 11.9 % (12.1-15.1); White Blood Count 4.3 10^3/uL (4.0-10.0)
[2022-06-13 14:14] LABS: Prostate Specific Antigen 0.198 ng/mL (0-4)
[2022-06-13 14:29] LABS: Testosterone Total < 2.5 ng/dL (193-740)
[2022-06-13 15:11] LABS: Alanine Aminotransferase 40 U/L (0-41); Albumin Level 3.9 g/dL (3.5-5.2); Alkaline Phosphatase 92 U/L (40-130); Aspartate Amino Transferase 24 U/L (0-40); Blood Urea Nitrogen 13 mg/dL (6-20); Calcium 8.8 mg/dL (8.5-10.5); Carbon Dioxide 27 mmol/L (22-29); Chloride 101 mmol/L (98-107); Globulin 2.6 g/dL (1.3-4.6); Glomerular Filtration Rate 69.8 mL/min (90-130); Glucose 104 mg/dL (65-115); Osmolality Calculated 286 mOsm/kg (285-295); Sodium 138 mmol/L (136-145); Total Bilirubin 0.3 mg/dL (0.15-1.2); Total Protein 6.5 g/dL (6.6-8.7)
[2022-06-13 15:16] LABS: Anion Gap 13.8 (5-19); Potassium 3.8 mmol/L (3.5-5.1)
[2022-06-13] MEDS: leuprolide 22.5 mg Kit IM (16:01)
== END 2022-06-21 23:59 | disposition home or self-care (01) ==
PROVIDERS: Internal Medicine Hematology & Oncology; PCP Nurse Practitioner Family; Visit Provider Radiology Radiation Oncology
DX: C61 Malignant neoplasm of prostate (principal); Z90.89 Acquired absence of other organs; C79.51 Secondary malignant neoplasm of bone; Z79.899 Other long term (current) drug therapy; Z79.818 Long term (current) use of other agents affecting estrogen receptors and estrogen levels; R07.81 Pleurodynia; Z79.891 Long term (current) use of opiate analgesic
CPT/HCPCS: 36415; 77336; 77385; 80053; 84153; 84403; 85025; 96401; 99024; 99214; J9217

== ENCOUNTER 2022-06-28 17:36 | Observation (INO) | payer MEDICARE, MEDICAID, SELFPAY ==
[2022-06-28] VITALS (20 sets, daily range): BP systolic 111–146; BP diastolic 74–108; PULSE 83–105; RESP 16–34; TEMP 36.6–37.3; O2SAT 95–100; BMI 30.1
--- NOTE | 2022-06-28 17:38 | XRR_ITS ---
PROCEDURE INFORMATION: Exam: XR Chest Exam date and time: 06/28/2022 5:55 PM Age: 52 years old Clinical indication: Pain; Chest pressure; Additional info: Cp TECHNIQUE: Imaging protocol: Radiologic exam of the chest. Views: 1 view. COMPARISON: CR XR chest 2V* [id number] 03/31/2022 4:49 PM FINDINGS: Lungs: Mild atelectasis in the left lung base. The right lung is clear. Pleural spaces: Blunting of the left costophrenic angle could represent a small pleural effusion. No pneumothorax. Heart/Mediastinum: Unremarkable. No cardiomegaly. Diaphragm: Mild elevation of the left diaphragm. Bones/joints: C-spine fusion hardware. XR/XR chest 1V portable [id number] IMPRESSION: 1. Mild left base atelectasis with possible small pleural effusion.
--- NOTE | 2022-06-28 17:38 | ED_ITS ---
HPI - Chest Pain General: Chief Complaint: Chest Pain Stated Complaint: CHEST PAIN Time Seen by Provider: 06/28/22 17:38 History of Present Illness: Mr. Boogie is a 52-year-old gentleman with complex past medical history including metastatic prostate cancer presenting to the emergency department for chest pain. He reports onset of symptoms at rest earlier this afternoon. Initially pressure-like pain in the left anterior chest with radiation up into the neck and back. He reports associated shortness of breath. Since initial onset and being in the ambulance he has now developed p ain in his abdomen as well as a numb sensation in his left leg. Intensity symptoms is severe. Course has persisted. No other specific changes in health, exacerbating, or alleviating factors identified. Onset (ago): hour(s) Timing of current episode: constant Onset: during rest Pain location: substernal Pain radiation: back and neck Quality: tightness Relieving factors: nothing Exacerbating factors: nothing Associated symptoms: Reports dyspnea Review of Systems General: Reports: 10 or more systems reviewed and unremarkable except in HPI and below Resp: Reports: dyspnea PFSH ED PFSH: Medical History Adenocarcinoma of prostate GERD (gastroesophageal reflux disease) Metastatic adenocarcinoma to prostate Psychiatric care Pulmonary nodules Testalgia Surgical History H/O esophagogastroduodenoscopy (06/23/21) mild gastritis H/O neck surgery for trauma Status post colonoscopy (~06/23/21) normal Status post laparoscopic cholecystectomy Family History Father , AT AGE 50'S Lung disease Mother Lung disease COPD Social History Smoking and tobacco status: never smoked Alcohol intake: never Adopted: No Lives independently: Yes Household members: spouse Marital status: Current occupational status: unemployed Physical Exam Const: COMMON NORMALS: alert GENERAL APPEARANCE: cooperative and well developed HENMT: COMMON NORMALS: normocephalic and atraumatic HEAD & SCALP: normocephalic and atraumatic Eye: COMMON NORMALS: conjunctivae normal CONJUNCTIVA: Yes conjunctivae normal SCLERA: sclerae normal Neck/C-Spine: COMMON NORMALS: supple GENERAL: Yes trachea midline Resp: COMMON NORMALS: clear to auscultation bilaterally EFFORT & INSPECTION: Yes tachypneic AUSCULTATION: clear to auscultation bilaterally Cardio: COMMON NORMALS: regular rate and regular rhythm RATE: regular rate RHYTHM: regular rhythm GI: COMMON NORMALS: Soft to palpation PALPATION: Yes Soft to palpation, Yes Tenderness to palpation present (GI), No Guarding due to palpation present (GI) and No Rigid due to palpation Extremity: GENERAL: Yes normal exam except as noted and No edema Neuro: COMMON NORMALS: moves all extremities SENSORIUM/ORIENTATION: Yes alert and No Orientation impaired Psych: COMMON NORMALS: mental status grossly normal and Normal thought process present THOUGHT PROCESS: Normal thought process present Course Vital Signs: Vital signs: Vital Signs Temperature 97.8 F 06/30/22 13:38 Pulse Rate 61 06/30/22 13:38 Respiratory Rate 18 06/30/22 13:38 Blood Pressure 113/65 06/30/22 13:38 Pulse Oximetry 95 06/30/22 13:38 Oxygen Delivery Me thod 06/30/22 12:00 MDM - Chest Pain Medical Decision Making 52-year-old gentleman with complex history presenting with chest pain. Exam as above. EKG notable for sinus tachycardia with normal axis and intervals, no STEMI. Labs with mild leukocytosis, normal hemoglobin and platelet count. Metabolic panel with no significant abnormalities to explain symptoms. Negative range 2- hour delta troponin. D-dimer is negative. ABG with hypoxemia and mild respiratory compensation. Negative urinalysis. Chest x-ray with mild left basilar atelectasis, no convincing lobar consolidation or pneumothorax. Possible episode of V-fib with loss of consciousness though seems unlikely, self terminating and EKG shortly after looks normal. Given change in patient condition additional imaging is appropriate. CT head negative. CT chest abdomen pelvis without clear abnormality. Lung nodule noted with need for follow-up. During ED course patient treated with analgesia, antiemetic. Exact etiology of patient symptoms is unclear however possible episode of arrhythmia requires further inpatient evaluation. Discussed with cardiology. The results of ED evaluation were discussed with the patient including plan for admission due to requirement for level of care not available if discharged to prevent significant worsening/deterioration. Patient agreeable with plan. Discussed with hospitalist service who was agreeable to admit patient. Medical Records I reviewed the patient's medical records. Lab Data I reviewed the patient's lab results. 06/28/22 17:30 06/28/22 17:30 Radiology Impressions Chest X-Ray 06/28/22 17:38 IMPRESSION: 1. Mild left base atelectasis with possible small pleural effusion. Chest/Abdomen/Pelvis CTA 06/28/22 18:01 IMPRESSION: 1. No evidence for aortic aneurysm or dissection. 2. No evidence for pulmonary embolus. 3. 4 mm right pulmonary nodule. For patients at low risk (minimal or absent history of smoking and of other known risk factors), no routine follow-up is indicated. For patients at high risk (history of smoking or of other known risk factors), consider optional CT Chest at 12 months. (Reference: Jose) References: Jose Harvey, et al. Guidelines for Management of Incidental Pulmonary Nodules Detected on CT Images: From the Fleischner Society 2017. Radiology. 2017;284(1):228-243. Head CT 06/28/22 19:25 IMPRESSION: No acute intracranial abnormality. Laboratory Results WBC 11.6 10^3/uL (4.0-10.0) H 06/28/22 17:30 RBC 4.70 10^6/uL (4.1-5.3) 06/28/22 17:30 Hgb 14.4 g/dL (11.7-16.6) 06/28/22 17:30 Hct 41.4 % (42.0-52.0) L 06/28/22 17:30 MCV 88.1 fl (80-94) 06/28/22 17:30 MCH 30.6 pg (28.0-34.0) 06/28/22 17:30 MCHC 34.8 g/dL (30.0-36.0) 06/28/22 17:30 RDW 11.9 % (12.1-15.1) L 06/28/22 17:30 Plt Count 255 10^3/cmm (130-400) 06/28/22 17:30 MPV 8.5 fL (7.4-10.4) 06/28/22 17:30 Neut % (Auto) 90.2 % 06/28/22 17:30 Lymph % (Auto) 3.2 % 06/28/22 17:30 Sabine % (Auto) 5.6 % 06/28/22 17:30 Eos % (Auto) 0.3 % 06/28/22 17:30 Baso % (Auto) 0.4 % 06/28/22 17:30 Neut # (Auto) 10.46 10^3/uL (1.8-7.7) H 06/28/22 17:30 Lymph # (Auto) 0.4 10^3/uL (0.8-4.8) L 06/28/22 17:30 [place] # (Auto) 0.7 10^3/uL (0.2-0.9) 06/28/22 17:30 Eos # (Auto) 0.0 10^3/uL (0.0-0.8) 06/28/22 17:30 Baso # (Auto) 0.1 10^3/uL (0.0-0.1) 06/28/22 17:30 Nucleated RBC % (auto) 0 % 06/28/22 17: Nucleated RBCs # 0.0 /100WBC 06/28/22 17:30 D-Dimer 0.52 ug/mIFEU (0-0.59) 06/28/22 17:30 Specimen Type Arterial 06/28/22 20:39 Sample Site Radial, left 06/28/22 20:39 ABG pH 7.45 (7.35-7.45) 06/28/22 20:39 ABG pCO2 32.6 mmHg (35-45) L 06/28/22 20:39 ABG pO2 61.1 mmHg (80.0-100.0) L 06/28/22 20:39 ABG HCO3 22.4 mmol/L (22-26) 06/28/22 20:39 ABG Base Excess -1.0 mmol/L (-2.0-2.0) 06/28/22 20:39 Claude Test Pos 06/28/22 20:39 Hematocrit 40.6 % (42-52) L 06/28/22 20:39 O2 Delivery Device None 06/28/22 20:39 FiO2 21.0 % 06/28/22 20:39 Mathematical Statistician ID [email or web address] 06/28/22 20:39 Sodium 140 mmol/L (136-145) 06/28/22 17:30 Potassium 3.8 mmol/L (3.5-5.1) 06/28/22 17:30 Chloride 103 mmol/L (98-107) 06/28/22 17:30 Carbon Dioxide 23 mmol/L (22-29) 06/28/22 17:30 Anion Gap 17.8 (5-19) 06/28/22 17:30 BUN 9 mg/dL (6-20) 06/28/22 17:30 Creatinine 0.9 mg/dL (0.7-1.2) 06/28/22 17:30 GFR Calculation 87.9 mL/min (90-130) L 06/28/22 17:30 Glucose 143 mg/dL (65-115) H 06/28/22 17:30 Calculated Osmolality 291 mOsm/kg (285-295) 06/28/22 17:30 Lactic Acid 2.2 mmol/L (0.5-2.2) 06/28/22 18:58 Calcium 9.4 mg/dL (8.5-10.5) 06/28/22 17:30 Magnesium 1.8 mg/dL (1.7-2.3) 06/28/22 19:10 Total Bilirubin 0.5 mg/dL (0.15-1.2) 06/28/22 17:30 AST 22 U/L (0-40) 06/28/22 17:30 ALT 25 U/L (0-41) 06/28/22 17:30 Alkaline Phosphatase 102 U/L (40-130) 06/28/22 17:30 Troponin T Baseline 6 ng/L (0-15) 06/28/22 17:30 Troponin T 120 Minute 6.29 ng/L (0-15) 06/28/22 19:18 Delta Troponin T 0.29 ABS# (0-10) 06/28/22 19:18 NT-Pro-B Natriuret Pep 80 pg/mL (0-125) 06/28/22 17:30 Total Protein 7.6 g/dL (6.6-8.7) 06/28/22 17:30 Albumin 4.7 g/dL (3.5-5.2) 06/28/22 17:30 Globulin 2.9 g/dL (1.3-4.6) 06/28/22 17:30 Lipase 30 U/L (13-60) 06/28/22 17:30 Urine Color Yellow (Yellow) 06/28/22 20:06 Urine Appearance Clear (CLEAR) 06/28/22 20:06 Urine pH 9 (5-7) H 06/28/22 20:06 Ur Specific [place] 1.015 (1.005-1.030) 06/28/22 20:06 Urine Protein Trace (Negative) 06/28/22 20:06 Urine Glucose (UA) Norm (Normal) 06/28/22 20:06 Urine Ketones 1+ (Negative) H 06/28/22 20:06 Urine Blood Neg (Negative) 06/28/22 20:06 Urine Nitrate Negative (Negative) 06/28/22 20:06 Urine Bilirubin Neg (Negative) 06/28/22 20:06 Prot Sulfosalicylic Acd Negative (Negative) 06/28/22 20:06 Urine Urobilinogen Norm mg/dL (Negative) 06/28/22 20:06 Ur Leukocyte Esterase Negative (Negative) 06/28/22 20:06 Urine RBC None /hpf (0-2) 06/28/22 20:06 Urine WBC None /hpf (0-5) 06/28/22 20:06 Ur Squamous Epith Cells 0-4 /hpf (0-5) H 06/28/22 20:06 Amorphous Sediment Not Reportable 06/28/22 20:06 Urine Bacteria None /hpf (NONE) 06/28/22 20:06 Urine Mucus Trace /hpf 06/28/22 20:06 Salicylates 1.6 mg/dL (3-10) L 06/28/22 19:10 Urine Opiates Screen Positive ng/mL (Negative) H 06/28/22 20:06 Acetaminophen < 5.0 ug/mL (10-30) L 06/28/22 19:10 Ur Barbiturates Screen Negative ng/mL (Negative) 06/28/22 20:06 Ur Phencyclidine Scrn Negative ng/mL (Negative) 06/28/22 20:06 Ur Amphetamines Screen Negative ng/mL (Negative) 06/28/22 20:06 U Benzodiazepines Scrn Positive ng/mL (Negative) H 06/28/22 20:06 Urine Cocaine Screen Negative ng/mL (Negative) 06/28/22 20:06 U Marijuana (THC) Screen Negative ng/mL (Negative) 06/28/22 20:06 Ethyl Alcohol < 10 mg/dL (0-10) 06/28/22 19:10 Discharge Plan Discharge Patient Disposition: Placed in Observation Admit Provider: Promise Jerry Clinical Impression: Chest pain, Metastatic adenocarcinoma to prostate, Syncope, Altered mental status Discharge Diet: Regular Discharge Activity: Resume usual activity and Increase activity as tolerated Coding Level of Care Code ED [employer] 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
--- NOTE | 2022-06-28 17:46 | ECG_ITS ---
[facility] Test Date: 2022-06-28 Pat Name: Jone Boogie Department: Room: Gender: Male [place]: : 1970 Requested By: Javier Love Order Number: [id number] Trevor MD: Toni Vazquez M.D. Measurements Intervals [place] Rate: 104 P: 56 [place]: 161 QRS: 35 QRSD: 102 T: 54 QT: 365 QTc: 481 Interpretive Statements SINUS TACHYCARDIA WITH OCCASIONAL SUPRAVENTRICULAR PREMATURE COMPLEXES ABNORMAL RHYTHM ECG WARNING: DATA QUALITY MAY AFFECT INTERPRETATION Compared to ECG 08/22/2018 01:03:42 Sinus rhythm no longer present Myocardial infarct finding no longer present Electronically Signed On 06-28-2022 18:19:30 CARDIAC RN by Toni Vazquez M.D. [email or web address]
[2022-06-28 18:01] LABS: Basophils # 0.1 10^3/uL (0.0-0.1); Basophils % 0.4 %; Eosinophils % 0.3 %; Hematocrit 41.4 % (42.0-52.0); Hemoglobin 14.4 g/dL (11.7-16.6); Lymphocytes # 0.4 10^3/uL (0.8-4.8); Lymphocytes % 3.2 %; Mean Corpuscular HGB Conc 34.8 g/dL (30.0-36.0); Mean Corpuscular Hemoglobin 30.6 pg (28.0-34.0); Mean Corpuscular Volume 88.1 fl (80-94); Mean Platelet Volume 8.5 fL (7.4-10.4); Monocytes # 0.7 10^3/uL (0.2-0.9); Monocytes % 5.6 %; Neutrophils # 10.46 10^3/uL (1.8-7.7); Neutrophils % 90.2 %; Nucleated Red Blood Cells % 0 %; Platelet Count 255 10^3/cmm (130-400); Red Cell Distribution Width 11.9 % (12.1-15.1); White Blood Count 11.6 10^3/uL (4.0-10.0)
--- NOTE | 2022-06-28 18:01 | CTR_ITS ---
PROCEDURE INFORMATION: Exam: CTA Chest With Contrast CTA Abdomen and Pelvis With Contrast Exam date and time: 06/28/2022 6:29 PM Age: 52 years old Clinical indication: Shortness of breath and other: Tachycardia; Radiating and sternal or substernal pain; Lower extremity; Left; Other: N/a; Prior surgery; Surgery type: Cervical fusion. Gb. Patient HX: C/O substernal cp with posterior radiation. SOB with tachycardia on monitor. C/O lle numbness. Currently on chemo for prostate cancer. History of pulmonary nodules. ; Additional info: Chest pain, back pain, SOB, tachycardia, lle numbness, eval dissection TECHNIQUE: Imaging protocol: Computed tomographic angiography of the chest with contrast. Computed tomographic angiography of the abdomen and pelvis with contrast. 3D rendering (Not supervised by radiologist): MIP and/or 3D reconstructed images were created by the technologist. Radiation optimization: All CT scans at this facility use at least one of these dose optimization techniques: automated exposure control; mA and/or kV adjustment per patient size (includes targeted exams where dose is matched to clinical indication); or iterative reconstruction. Contrast material: OMNI 350; Contrast volume: 100 ml; Contrast route: INTRAVENOUS (IV); REPORTING DATA: Count of CT and Cardiac NM exams in prior 12 months: This patient has received 3 known CTs and 0 known cardiac nuclear medicine studies in the 12 months prior to the current study. COMPARISON: CT chest abdomen w con* 01/28/2021 2:36 PM RADIATION DOSE METRICS: Total DLP (mGy-cm): 1128.79 FINDINGS: VASCULATURE: Pulmonary arteries: Normal. No pulmonary emboli. Aorta: No aortic aneurysm. No aortic dissection. Celiac trunk and mesenteric arteries: Mild kinking and stenosis at the origin of the celiac artery. The superior mesenteric artery is widely patent. Renal arteries: No occlusion or significant stenosis. Right iliac arteries: No occlusion or significant stenosis. Left iliac arteries: No occlusion or significant stenosis. CHEST: Lungs: 4 mm right middle lobe nodule. Minimal atelectasis in the lower lobes and left lung base. The lungs are otherwise clear. Pleural spaces: Unremarkable. No pneumothorax. No pleural effusion. Heart: Unremarkable. No cardiomegaly. No pericardial effusion. ABDOMEN AND PELVIS: Liver: Multiple hepatic cysts, less than 20 Hounsfield units. Additional hypodensities are too small to characterize but are also most likely cysts. Gallbladder and bile ducts: Cholecystectomy. The bile ducts are normal. Pancreas: Unremarkable. No mass. No ductal dilation. Spleen: Unremarkable. No splenomegaly. Adrenal glands: Unremarkable. No mass. Kidneys and ureters: Unremarkable. No solid mass. No hydronephrosis. Stomach and bowel: Unremarkable. No obstruction. No mucosal thickening. Appendix: The appendix is visualized and is normal. Intraperitoneal space: Unremarkable. No free air. No significant fluid collection. Urinary bladder: Unremarkable. No mass. Reproductive: Enlarged prostate with coarse calcifications. Lymph nodes: Unremarkable. No enlarged lymph nodes. Bones/joints: Degenerative changes of the spine. No acute fracture. No acute fracture. Mild lumbar scoliosis. Soft tissues: Unremarkable. CT/CT [facility] [id number] IMPRESSION: 1. No evidence for aortic aneurysm or dissection. 2. No evidence for pulmonary embolus. 3. 4 mm right pulmonary nodule. For patients at low risk (minimal or absent history of smoking and of other known risk factors), no routine follow-up is indicated. For patients at high risk (history of smoking or of other known risk factors), consider optional CT Chest at 12 months. (Reference: Jose) References: Jose Harvey, et al. Guidelines for Management of Incidental Pulmonary Nodules Detected on CT Images: From the Fleischner Society 2017. Radiology. 2017;284(1):228-243.
[2022-06-28] MEDS: morphine 4 mg/mL SDV 1 mL IVP (18:06)
[2022-06-28] MEDS: ondansetron 2 mg/ML SDV 2 mL 4 MG IVP (18:07)
[2022-06-28 18:29] LABS: Alanine Aminotransferase 25 U/L (0-41); Albumin Level 4.7 g/dL (3.5-5.2); Alkaline Phosphatase 102 U/L (40-130); Anion Gap 17.8 (5-19); Aspartate Amino Transferase 22 U/L (0-40); Blood Urea Nitrogen 9 mg/dL (6-20); Calcium 9.4 mg/dL (8.5-10.5); Carbon Dioxide 23 mmol/L (22-29); Chloride 103 mmol/L (98-107); Globulin 2.9 g/dL (1.3-4.6); Glomerular Filtration Rate 87.9 mL/min (90-130); Glucose 143 mg/dL (65-115); Lipase 30 U/L (13-60); NT Pro B Type Natriuretic Pept 80 pg/mL (0-125); Osmolality Calculated 291 mOsm/kg (285-295); Potassium 3.8 mmol/L (3.5-5.1); Sodium 140 mmol/L (136-145); Total Bilirubin 0.5 mg/dL (0.15-1.2); Total Protein 7.6 g/dL (6.6-8.7)
[2022-06-28] MEDS: iohexol 350 mg/mL 500 mL Btl (per mL) IV (18:39)
[2022-06-28 18:47] LABS: Troponin(5th) Baseline 6 ng/L (0-15)
[2022-06-28 19:13] LABS: Lactic Sepsis W/Reflex 2.2 mmol/L (0.5-2.2)
--- NOTE | 2022-06-28 19:24 | ECG_ITS ---
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 Measurements Intervals [place] Rate: 87 P: 55 AL: 163 QRS: 26 QRSD: 104 T: 52 QT: 410 QTc: 493 Interpretive Statements SINUS RHYTHM LEFT ATRIAL ENLARGEMENT [-0.15mV P-WAVE IN V1/V2] Compared to ECG 06/28/2022 17:46:50 Atrial abnormality now present Sinus tachycardia no longer present Electronically Signed On 06-29-2022 15:10:45 CREDIT CHARGE AUTHORIZER by Toni Vazquez M.D. [id number]
--- NOTE | 2022-06-28 19:25 | CTR_ITS ---
PROCEDURE INFORMATION: Exam: CT Head Without Contrast Exam date and time: 06/28/2022 7:34 PM Age: 52 years old Clinical indication: Altered mental status/memory loss and other: Mouth numbness. Patient HX: Lethargy with new complaint of mouth numbness. Currently on chemo for prostate cancer. ; Additional info: AMS TECHNIQUE: Imaging protocol: Computed tomography of the head without contrast. Radiation optimization: All CT scans at this facility use at least one of these dose optimization techniques: automated exposure control; mA and/or kV adjustment per patient size (includes targeted exams where dose is matched to clinical indication); or iterative reconstruction. REPORTING DATA: Count of CT and Cardiac NM exams in prior 12 months: This patient has received 4 known CTs and 0 known cardiac nuclear medicine studies in the 12 months prior to the current study. COMPARISON: NM bone scan whole body* [id number] 04/15/2022 9:43 AM RADIATION DOSE METRICS: Total DLP (mGy-cm): 1135.38 FINDINGS: Brain: Normal. No hemorrhage. Unremarkable white matter. No mass effect. Cerebral ventricles: No ventriculomegaly. Paranasal sinuses: Small polyps or retention cysts in the maxillary sinuses. The other sinuses are clear. Mastoid air cells: Right mastoid effusion. The left mastoid is clear. Bones/joints: The bones are intact. Plagiocephaly. Soft tissues: Scar in the left frontal scalp. CT/CT head wo con* [id number] IMPRESSION: No acute intracranial abnormality.
[2022-06-28] MEDS: fentaNYL 50 mcg/mL INJ 2mL IVP ×2 (19:27→21:29)
[2022-06-28 19:48] LABS: Troponin 5 2HR 6.29 ng/L (0-15)
--- NOTE | 2022-06-28 19:50 | PC.NURSE ---
1918 Patient went into vfib. Pads placed on patient, dr at bedside, patient converted back to SR. Patient complained of chest pain and mouth being numb. Fentanyl given for pain.
[2022-06-28 20:09] LABS: Troponin 5 2HR Delta 0.29 ABS# (0-10)
[2022-06-28 20:17] LABS: Acetaminophen < 5.0 ug/mL (10-30); Alcohol Level < 10 mg/dL (0-10); Magnesium 1.8 mg/dL (1.7-2.3); Salicylate 1.6 mg/dL (3-10)
[2022-06-28 20:33] LABS: Amphetamines Screen Urine Negative (Negative); Barbiturates Screen Urine Negative (Negative); Benzodiazepines Screen Urine Positive (Negative); Cocaine Screen Urine Negative (Negative); Opiate Screen Urine Positive (Negative); PCP Screen Urine Negative (Negative); THC Screen Urine Negative (Negative)
[2022-06-28 20:37] LABS: Glucose Urine UA Norm (Normal); Protein Urine Trace (Negative); Specific Gravity, Urine 1.015 (1.005-1.030); Urine Appearance Clear (CLEAR); Urine Color Yellow (Yellow); pH Urine 9 (5-7)
[2022-06-28 20:38] LABS: Add Urine Microscopic? YES; Bilirubin Urine Neg (Negative); Blood Urine Neg (Negative); Ketones Urine 1+ (Negative); Leukocyte Esterase Urine Negative (Negative); Nitrate Urine Negative (Negative); Sulfosalicylic Acid Urine Negative (Negative); Urobilinogen Urine Norm (Negative)
[2022-06-28 20:42] LABS: Mucus Urine TRACE /hpf; Squamous Epithelial Cell Urine 0-4 /hpf (0-5)
[2022-06-28 20:48] LABS: Reflex Lactate Order REFLEX LACTIC ORDERD
[2022-06-28 20:48] LABS: ABG PCO2 32.6 mmHg (35-45); ABG PH Result 7.45 (7.35-7.45); Arterial Blood Gas Hematocrit 40.6 % (42-52); Blood Gas Allen Test Pos; Blood Gas Sample Site Radial, left; Blood Gas Sample Type Arterial; HCO3 ABG 22.4 mmol/L (22-26); PO2 ABG 61.1 mmHg (80.0-100.0)
--- NOTE | 2022-06-28 22:03 | PM.HP ---
Providers/Chief Complaint Admitting Physician: Promise Jerry MD Primary Care Provider: DARSHANA Villa Chief Complaint: CHEST PAIN History of Present Illness Jone Boogie is a 52 year old male presenting to the emergency room with chief complaints of left-sided chest pain which is radiating in a bandlike fashion to his back and down his left arm. Pain started at around 2:00. Patient was carrying some groceries and could not continue doing his activity. He had to lie down. However resting did not make his chest pain any better. It has been intermittent. Stabbing type. 10 out of 10 at its peak. He presented to the emergency room with these circumstances. EKG without acute ST-T wave changes. Troponin series was negative. He underwent a CTA of the chest abdomen and pelvis due to concerns for dissection but study was negative for the same. Additionally no PE was found. Negative for pancreatitis as well. Patient has a past history of pancreatitis 4 years ago in the setting of gallbladder stones. He has had several colonoscopies and endoscopies in the past for nonerosive gastritis. While in the ER, patient had an episode of what appeared to be V-fib on telemetry and he was briefly unresponsive. Per discussion with ER physician this episode resolved spontaneously and patient has been asymptomatic since then except for intermittent chest pain. Morphine has not helped his chest pain. He does find benefit after being placed on a nitro patch. Review of Systems General: Reports: 10 or more systems reviewed and unremarkable except in HPI and below Const: Denies: fever(s), chills or body aches Eyes: Denies: change in vision, blurry vision or photophobia ENMT: Reports: hoarseness; Denies: throat pain, enlarged tonsils, odynophagia or nasal congestion Card: Denies: chest pain, palpitations, irregular heart rhythm, edema, swelling of feet/ankles, lightheadedness, pre-syncope, dyspnea on exertion or orthopnea Resp: Denies: dyspnea, productive cough, non-productive cough, wheezing, stridor, pain on inspiration, change in phlegm color, hemoptysis or chest congestion GI: Denies: abdominal pain, nausea, vomiting, hematemesis, coffee ground emesis, dysphagia, heartburn, diarrhea, constipation, GI cramping, change in stool character, hematochezia or melena : Denies: flank pain, dysuria, urinary frequency, urinary urgency, urinary hesitancy or hematuria Musc: Denies: neck pain, back pain, extremity pain, joint swelling, joint warmth or deformity Neuro: Denies: headache(s), numbness in extremities, weakness in extremities, sensory changes, difficulty walking, frequent falls, dizziness, vertigo, behavioral changes, Slurred speech present or seizure-like activity Psych: Denies: anxiety, depression, suicidal ideation or homicidal ideation Endo: Denies: polyuria, polydipsia, tired all the time, cold intolerance or hot flashes Greg/Lymph: Denies: easy bruising or easy bleeding Medications/Allergies Home Medications Medication Instructions Recorded Confirmed Last Taken Type pantoprazole 40 mg tablet,delayed 40 mg PO DAILY 6 weeks #42 tabs 06/23/21 06/29/22 Unknown Rx release (Protonix) tramadol 50 mg tablet 50 mg PO BID PRN pain 30 days #60 01/24/22 06/29/22 Unknown Rx tabs budesonide-formoterol HFA 80 2 puff inhalation BID PRN 02/10/22 06/13/22 Unknown History mcg-4.5 mcg/actuation aerosol inhaler (Symbicort) lorazepam 1 mg tablet 0.5 - 1 mg PO Q6H PRN Severe 03/03/22 06/29/22 Unknown Rx Nausea #30 tabs prochlorperazine maleate 10 mg 10 mg PO Q4H PRN Mild Nausea #30 03/03/22 06/29/22 Unknown Rx tablet (Compazine) tabs albuterol sulfate 90 mcg/actuation 1 inh inhalation QID PRN Shortness 03/31/22 06/29/22 Unknown History breath activated powder inhaler Of Breath tamsulosin 0.4 mg capsule 0.4 mg PO BEDTIME #30 caps 05/05/22 06/29/22 Unknown Rx sildenafil 50 mg tablet (Viagra) 50 mg PO DAILY PRN sexual activity 05/10/22 06/29/22 Unknown Rx #5 tabs oxycodone-acetaminophen 5 mg-325 1 - 2 tab PO .Q4-6H PRN pain 30 06/01/22 06/29/22 Unknown Rx mg tablet (Percocet) days #90 tabs bicalutamide 50 mg tablet (Casodex) 50 mg PO DAILY #30 tabs 06/24/22 06/29/22 Unknown Rx fluoxetine 40 mg capsule See Rx Instructions .Route 06/24/22 06/29/22 Unknown Rx .COMPLEX #60 caps naloxone 4 mg/actuation nasal 1 spray intranasal DIRECTED 06/29/22 06/29/22 Unknown History spray (Narcan) Allergies Allergy/AdvReac Type Severity Reaction Status Date / Time No Known Allergies Allergy Verified 06/13/22 14:52 PFSH Acute PFSH: Medical History GERD (gastroesophageal reflux disease) Psychiatric care Pulmonary nodules Testalgia Surgical History H/O esophagogastroduodenoscopy (06/23/21) mild gastritis H/O neck surgery for trauma Status post colonoscopy (~06/23/21) normal Status post laparoscopic cholecystectomy Family History Father , AT AGE 50'S Lung disease Mother Lung disease COPD Social History Smoking and tobacco status: never smoked Alcohol intake: never Adopted: No Lives independently: Yes Household members: spouse Marital status: Current occupational status: unemployed Vitals/I&O/Wt Last Vital Signs Temp 98.9 F 06/28/22 17:37 Pulse 87 06/28/22 21:30 Resp 30 H 06/28/22 21:30 BP 127/88 06/28/22 21:30 Pulse Ox 99 06/28/22 21:30 Weight last 48 hrs Weight 92.533 kg Physical Exam Narrative: General: No acute distress, AO x3 HEENT: PERRLA, pupils bilaterally equal and reactive, pallors not present Chest: Normal vesicular breath sounds, no added sounds, equal good air entry bilaterally CVS: S1-S2 regular, no murmurs, no tachycardia, no gallops, no rubs Abdomen: Soft, nontender, no organomegaly, bowel sounds present Neuro: No focal deficits, no facial deformity, AO x3, power 5/5 in all limbs Data 06/28/22 17:30 06/28/22 17:30 A&P Assessment and plan (1) Chest pain: Patient presenting today with chest pain radiating into the back across the left side chest wall. Made worse with activity, no significant relieving factor. While in the ER he had an episode of what appeared to be V-fib on telemetry and patient was unresponsive briefly. Reportedly the episode resolved spontaneously. Twelve-lead EKG taken before and after the event shows a sinus rhythm. Troponin series is unremarkable. CTA has ruled out a PE and dissection. CT of the abdomen and pelvis is negative for pancreatitis, lipase is negative. Patient has had no improvement with morphine, however pain did resolve after a placing a nitro patch on his anterior chest wall. Differentials to consider at this time would be anginal chest pain versus gastritis. Hemoglobin is stable, no signs of GI bleeding. Patient has a past history of nonerosive gastritis for which she is on Protonix. We will increase the Protonix to 40 mg p.o. twice daily. Given additionally some concerning risk factors such as improvement with nitrates, cardiac arrhythmia noticed in the ER, worsening with exertion, will opt for stress test to evaluate for potentially underlying ischemic cause. Monitor overnight in CSU on telemetry. (2) Cardiac arrhythmia: (3) Adenocarcinoma of prostate: Attestations Medical Necessity Statement*: Anticipate less than 2 midnight stay Coding Level of Care Code Acute Code for [facility] Diagnoses Chest pain R07.9 Cardiac arrhythmia I49.9 Adenocarcinoma of prostate C61
[2022-06-28] MEDS: enoxaparin 40 mg/0.4 mL Syringe SUBCUT (22:54)
[2022-06-28] MEDS: morphine 4 mg/mL SDV 1 mL 2 MG IVP (23:07)
--- NOTE | 2022-06-28 23:38 | ECG_ITS ---
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 Measurements Intervals [place] Rate: 94 P: 33 UT: 136 QRS: 37 QRSD: 110 T: 30 QT: 387 QTc: 486 Interpretive Statements SINUS RHYTHM Compared to ECG 06/28/2022 19:24:03 Atrial abnormality no longer present Electronically Signed On 06-29-2022 15:11:42 CARBURETOR MECHANIC by Toni Vazquez M.D. [id number]
--- NOTE | 2022-06-28 23:50 | PC.NURSE ---
Spoke with regarding patients pain level, not controlled with PRN morphine. to resume patient home medications and add PRN Nitro paste as needed.
[2022-06-28 23:53] LABS: D Dimer 0.52 ug/mIFEU (0-0.59)
[2022-06-28 23:54] LABS: Troponin 5 6HR 9.09 ng/L (0-15)
[2022-06-28 23:56] LABS: Lactic Acid level (Lactate) 1.7 mmol/L (0.5-2.2)
[2022-06-29] VITALS (61 sets, daily range): BP systolic 106–136; BP diastolic 66–91; PULSE 62–119; RESP 15–42; TEMP 36.6–37.1; O2SAT 70–100
[2022-06-29] MEDS: oxyCODONE-APAP 5-325 mg Tablet 1 TAB PO ×3 (00:21→18:27)
[2022-06-29 01:02] LABS: Troponin 5 6HR Delta 2.8 ng/L (0-12)
[2022-06-29] MEDS: nitroglycerin 1 gm/inch oint Pkt 0.5 INCH TOPICAL (02:41)
[2022-06-29] MEDS: morphine 4 mg/mL SDV 1 mL 2 MG IVP (03:15)
[2022-06-29 04:43] LABS: Basophils % 0.4 %; Eosinophils % 0.1 %; Hematocrit 39.5 % (42.0-52.0); Hemoglobin 13.5 g/dL (11.7-16.6); Lymphocytes # 0.5 10^3/uL (0.8-4.8); Mean Corpuscular HGB Conc 34.2 g/dL (30.0-36.0); Mean Corpuscular Hemoglobin 30.3 pg (28.0-34.0); Mean Corpuscular Volume 88.6 fl (80-94); Mean Platelet Volume 8.1 fL (7.4-10.4); Monocytes # 0.5 10^3/uL (0.2-0.9); Monocytes % 5.6 %; Neutrophils # 7.21 10^3/uL (1.8-7.7); Neutrophils % 87.7 %; Nucleated Red Blood Cells % 0 %; Platelet Count 206 10^3/cmm (130-400); Red Blood Count 4.46 10^6/uL (4.1-5.3); Red Cell Distribution Width 11.9 % (12.1-15.1); White Blood Count 8.2 10^3/uL (4.0-10.0)
[2022-06-29 05:01] LABS: Alanine Aminotransferase 23 U/L (0-41); Albumin Level 4.2 g/dL (3.5-5.2); Alkaline Phosphatase 85 U/L (40-130); Anion Gap 16.7 (5-19); Aspartate Amino Transferase 19 U/L (0-40); Blood Urea Nitrogen 10 mg/dL (6-20); Calcium 8.7 mg/dL (8.5-10.5); Carbon Dioxide 21 mmol/L (22-29); Chloride 99 mmol/L (98-107); Globulin 2.9 g/dL (1.3-4.6); Glomerular Filtration Rate 69.8 mL/min (90-130); Glucose 111 mg/dL (65-115); Osmolality Calculated 276 mOsm/kg (285-295); Potassium 3.7 mmol/L (3.5-5.1); Sodium 133 mmol/L (136-145); Total Bilirubin 0.7 mg/dL (0.15-1.2); Total Protein 7.1 g/dL (6.6-8.7)
--- NOTE | 2022-06-29 06:23 | ECG_ITS ---
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 Interpretive Statements NAME OF STUDY: LEXISCAN SESTAMIBI STRESS TEST INDICATION: Chest Pain PROCEDURE: At the baseline, the EKG revealed normal sinus rhythm with a normal ST Ts. The baseline heart was 59 bpm with a blood pressue of 109/80 mm of Hg Lexiscan was infused over a period of 20 seconds. A total of 0.4 milligrams of Lexiscan was infused. The stress phase was continued for a total of 5 minutes. Heart rate at the end of the stress phase was 78 bpm with a blood pressure 115/75 mm of Hg. The EKG at the peak infusion revealed no significant changes. Sestamibi was injected 20 seconds after the Lexiscan infusion. Heart rate at the end of the recovery phase was 74 bpm with a blood pressure of 132/75 mm of Hg. CONCLUSION: 1. No significant EKG changes with the LexiScan infusion 2. No LexiScan induced chest pain or cardiac arrhythmia 3. Normal blood pressure and heart rate response 4. Sestamibi/sestamibi perfusion scan pending; see separate report. Electronically Signed On 07-03-2022 23:42:15 CDT by Mercedes Redmond M.D. [id number]
--- NOTE | 2022-06-29 08:30 | PC.CHAP ---
Pastoral Care Encounter/Spiritual Assessment Type of Contact [] Declined pattern puncher visit [] Patient/Family/Request visit [] Outpatient visit [] Follow-up visit [] Physician referral [] Code/Alert [x] Routine visit [] Staff referral [] Actively dying [] Patient sleeping [] Family support [] [] Out of room [] Palliative care [] [] Receiving care in room [] Pre-surgical visit [] Trauma [] Long length of stay [] ICU visit [] Other: Relational/Emotional Strength [x] Patient feels connected with others/family/visitors/staff [] Distress [] Loneliness/isolation [] Abandonment Spirituality of Patient [x] Person of Terri [x] Attends Shinto of their Terri [x] Believes in Prayer [x] Reads Bible or Mosque materials [] There are Spiritual issues to be addressed Commercial Lines Underwriter Interventions [x] Prayer [x] Active listening [x] Non-anxious presence [x] Spiritual/emotional support [] Crisis/trauma care [] Spiritual counseling [] Bereavement support [] Provided bereavement packet [x] Provided Bible/devotional materials [] Provided toy/stuffed animal, coloring book to patient or family member [] Provided Communion [] Anointing/[place] [] Salvation [x] Completed spiritual assessment [] Other: Impact on Illness or Injury [] Angry [] Fearful [] Anxious [] Often cries [] Exhaustion [] Unable to work [] Unable to attend scientology [] Unable to walk/stand [] Unable to read [] Unable to drive [] Unable to eat/drink [] Unable to sleep [] Unable to be with family [] Patient intubated [] Other: Summary Pt present for the visit. Pt came in through ER last evening and is now awaiting tests which will not be done until tomorrow. Both are persons of terri and attend [employer] in [place]. Pt stated he had a glimpse of heaven last evening and is ready to go if God is willing. Pt has learned brother also had medical issues and is currently in ER at the hospital. Time spent with patient 15m
--- NOTE | 2022-06-29 08:35 | PC.NURSE ---
pt's awoken from sleep, when asked if he has any pain, he said pain did not go away, rating at 7/10. pt is up and moving to the bathroom twice now. ambulating in room.
[2022-06-29] MEDS: pantoprazole DR 40 mg Tablet PO ×2 (08:56→18:19)
[2022-06-29] MEDS: fluoxetine 20 mg Capsule 40 MG PO ×2 (08:56→13:36)
--- NOTE | 2022-06-29 11:31 | USCV_ITS ---
Jone Boogie Age: 52 Gender: M : 1970 Exam Date: 06/29/2022 15:38 Ordering Phys: Devaughn Rodrigues MD Technologist: TRACIE Exam Location: [facility] Indication: CHEST PAIN BP: 112 / 66 HR: 67 Rhythm: Sinus Technical Quality: Adequate MEASUREMENTS (Male / Female) Normal Values 2D ECHO LVOT Diameter 2.0 cm LV Ejection Fraction MOD 2C 58.4 % LV Ejection Fraction 2C AL 58.1 % LA Diameter 3.0 cm LA Width 2.4 cm LA Height 5.3 cm RA Width 3.7 cm RA Height 4.4 cm Aorta at Sinotubular Diameter 2.7 cm M-MODE Aortic Annulus Diameter 3.0 cm LA Ao Ratio MM 1.0 MV E Point Septal Separation 0.6 cm DOPPLER AV Peak Velocity 149.0 cm/s LVOT Peak Velocity 116.0 cm/s AV Area Cont Eq vti 2.4 cm squared AV Area Cont Eq pk 2.5 cm squared MV Peak Velocity 89.0 cm/s MV Area PHT 4.1 cm squared Mitral E to A Ratio 1.2 MV E' Velocity 48.0 cm/s Mitral E to MV E' Ratio 7.4 Mitral E to LV E' Lateral Ratio 5.5 Mitral E to LV E' Septal Ratio 11.4 TR Peak Velocity 148.5 cm/s TR Peak Gradient 8.8 mmHg TR Mean Velocity 120.6 cm/s TR Mean Gradient 6.1 mmHg TR Velocity Time Integral 36.7 cm TV Peak E Velocity 48.0 cm/s Right Atrial Pressure 8.0 mmHg Pulmonary Artery Systolic Pressu 16.8 mmHg PV Peak Velocity 93.0 cm/s RV Acceleration Time 0.1 s RV Ejection Time 0.3 s RV AcT/ET 0.4 FINDINGS Left Ventricle Normal left ventricular size and systolic function, EF 63 %. No regional wall motion abnormalities. Right Ventricle The right ventricle is normal in size and function. Right Atrium The right atrium is normal in size. Left Atrium The left atrium is normal in size. Mitral Valve No gross abnormalities note Aortic Valve No gross abnormalities noted Tricuspid Valve Trace to mild tricuspid valve regurgitation. Estimated pulmonary artery peak systolic pressure of 17 millimeters of mercury Pulmonic Valve No gross abnormalities note Pericardium Normal pericardium without effusion. Aorta Normal ascending aorta dimension. IVC The inferior vena cava appears normal. CONCLUSIONS Normal left ventricular size and systolic function, EF 63 %. No regional wall motion abnormalities. Normal cardiac chamber sizes. Trace to mild tricuspid valve regurgitation. Estimated pulmonary artery peak systolic pressure of 17 millimeters of mercury. There is no pericardial effusion. There are no intracardiac masses. No similar previous studies are available for comparison Dr Mercedes Redmond MD FAC (Electronically Signed) Final Date: 29 June 2022 18:51 S
[2022-06-29] MEDS: aspirin 325 mg EC Tablet PO (11:53)
[2022-06-29] MEDS: metoprolol tartrate 25 mg Tablet PO ×2 (11:53→22:16)
[2022-06-29 11:59] LABS: Iron 22 ug/dL (59-158); Percent Saturation 7.6 % (20-50); Total Iron Binding Capacity 289 mcg/dl; Unsaturated Iron Binding 267 ug/dL (112-347)
[2022-06-29 12:20] LABS: Thyroid Stimulating Hormone 1.75 uIU/mL (0.27-4.20); Vitamin B12 434 pg/mL (232-1245)
--- NOTE | 2022-06-29 12:49 | P.PN_ITS ---
Subjective Subjective: H&P and labs appreciated. Patient was supposed to get stress test in a.m. today but could not go as he had caffeine earlier today morning. Denies any nausea, vomiting currently. Still complaining of pain mostly in the back and some in the chest on minimal movement. Patient seems anxious. Remains hemodynamically stable. Having tachycardia. No further events on telemetry. Spouse at bedside. Vitals/I&O/Wt Last Vital Signs Temp 98.0 F 06/29/22 07:50 Pulse 100 06/29/22 12:45 Resp 24 H 06/29/22 12:45 BP 132/76 06/29/22 12:45 Pulse Ox 95 06/29/22 12:45 O2 Del Method 06/29/22 07:50 06/28/22 06/29/22 06/29/22 22:59 06:59 14:59 Intake Total 480 / 480 480 / 480 Output Total 275 / 275 90 / 90 Balance 205 / 205 390 / 390 Weight last 48 hrs Weight 92.442 kg Weight 92.533 kg Physical Exam Narrative: General: Mild distress because of pain, AO x3, anxious HEENT: PERRLA, pupils bilaterally equal and reactive, pallors not present Chest: Normal vesicular breath sounds, no added sounds, equal good air entry bilaterally CVS: S1-S2 regular, no murmurs, no tachycardia, no gallops, no rubs Abdomen: Soft, nontender, no organomegaly, bowel sounds present Neuro: No focal deficits, no facial deformity, AO x3, power 5/5 in all limbs Data 06/29/22 04:31 06/29/22 04:31 A&P Assessment and plan (1) Chest pain: (2) Cardiac arrhythmia: (3) Adenocarcinoma of prostate: Plan Patient does have significant family history. But given the history cannot rule out musculoskeletal etiology. Pancreatitis ruled out with a negative lipase. Concern for a possible cardiac arrhythmia as per the history. Do not have strips to compare. Reported V-fib by the ER. Continue telemetry. Does have history of nonerosive gastritis. Continue with Protonix. Check echocardiogram. Troponins negative. Check A1c, lipid panel. Plan for stress test in a.m. N.p.o. without caffeine over midnight. Aspirin 325 mg one-time followed by 81 mg daily, atorvastatin 20 mg nightly. Start on metoprolol 25 mg twice daily. Monitor blood pressures. Goal blood pressure less than 140/90 mmHg. Continue to monitor blood pressures. Start on fentanyl patch low-dose for back pain. Continue home dose of oxycodone. Continue with home dose of Protonix 40 mg twice daily. Full code. Cardiac diet, n.p.o. after midnight. Protonix for PUD prophylaxis Lovenox for DVT prophylaxis Plan and care discussed in detail with patient and patient's spouse at bedside. All the questions were answered. This documentation was created by [employer] physical therapist assistant software. Every effort was made to ensure accuracy of physical therapist assistant. Any obvious errors or omissions should be clarified with the author of the document. Attestations Medical Necessity Statement*: Requires further hospitalization for further evaluation and management of chest pain in a patient with significant family history and possible arrhythmia on admission Diagnoses Chest pain R07.9 Cardiac arrhythmia I49.9 Adenocarcinoma of prostate C61
[2022-06-29] MEDS: fentaNYL 12 mcg Patch 1 PATCH TRANSDERMA (13:37)
--- NOTE | 2022-06-29 13:45 | PC.NURSE ---
fentanyl patch as ordered applied to left lower back.
--- NOTE | 2022-06-29 19:54 | PC.NURSE ---
shift report pt pain control goal is met per patient response after fentanyl patch ordered for lower back pain. pt reports of loose stools. dr notified and orders received for stool studies. pt informed of stress test in the morning and npo after mid w/no caffeine. pt verbalizes understanding.
[2022-06-29] MEDS: atorvastatin 40 mg Tablet 20 MG PO (22:16)
[2022-06-29] MEDS: tamsulosin 0.4 mg Capsule PO (22:17)
[2022-06-29] MEDS: enoxaparin 40 mg/0.4 mL Syringe SUBCUT ×2 (22:17→22:20)
[2022-06-30] VITALS (7 sets, daily range): BP systolic 95–113; BP diastolic 56–77; PULSE 56–74; RESP 17–21; TEMP 36.6–36.8; O2SAT 95–96
[2022-06-30 05:05] LABS: Basophils % 0.6 %; Eosinophils # 0.1 10^3/uL (0.0-0.8); Eosinophils % 1.5 %; Hematocrit 35.6 % (42.0-52.0); Lymphocytes # 0.5 10^3/uL (0.8-4.8); Lymphocytes % 9.6 %; Mean Corpuscular HGB Conc 33.7 g/dL (30.0-36.0); Mean Platelet Volume 8.3 fL (7.4-10.4); Monocytes # 0.6 10^3/uL (0.2-0.9); Monocytes % 11.2 %; Neutrophils # 4.07 10^3/uL (1.8-7.7); Neutrophils % 76.9 %; Nucleated Red Blood Cells % 0 %; Platelet Count 154 10^3/cmm (130-400); Red Cell Distribution Width 11.9 % (12.1-15.1); White Blood Count 5.3 10^3/uL (4.0-10.0)
[2022-06-30 05:42] LABS: Alanine Aminotransferase 18 U/L (0-41); Albumin Level 3.5 g/dL (3.5-5.2); Alkaline Phosphatase 70 U/L (40-130); Anion Gap 11.7 (5-19); Aspartate Amino Transferase 16 U/L (0-40); Blood Urea Nitrogen 14 mg/dL (6-20); Calcium 8.5 mg/dL (8.5-10.5); Carbon Dioxide 24 mmol/L (22-29); Chloride 101 mmol/L (98-107); Chol HDL Ratio 3.67 mg/dL (1.0-5.00); Cholesterol 169 mg/dL (0-200); Globulin 2.6 g/dL (1.3-4.6); Glomerular Filtration Rate 69.8 mL/min (90-130); Glucose 94 mg/dL (65-115); HDL Cholesterol 46 mg/dL (60-100); LDL Cholesterol Calculated 90 mg/dL (50-129); Osmolality Calculated 276 mOsm/kg (285-295); Potassium 3.7 mmol/L (3.5-5.1); Sodium 133 mmol/L (136-145); Total Bilirubin 0.3 mg/dL (0.15-1.2); Total Protein 6.1 g/dL (6.6-8.7); Triglycerides 165 mg/dL (0-150); VLDL Cholestrol Calculation 33 mg/dL (0-30)
[2022-06-30 05:55] LABS: Estmated Average Glucose 85; Hemoglobin A1C 4.6 % (4.0-6.0)
--- NOTE | 2022-06-30 06:24 | NMCV_ITS ---
NM hermann perf SPECT r/s* [id number] Jone Boogie Age: 52 Gender: M : 1970 Exam Date: 06/30/2022 06:24 Ordering Phys: Promise Jerry MD Technologist: IRMA Tompkins Exam Location: [facility] [place] Indications: CHEST PAIN STRESS TEST [facility] IMAGE PROTOCOL Rest/Stress 1 Lexiscan Radiopharmaceutical Dose (mCi) Administration Site Administered by Rest: Tc-99m 10.8 IV IRMA Mcnamara Sestamibi Stress:Tc-99m 32.5 IV IRMA Mcnamara Sestamibi Rest: 30-Jun-2022 60 Discovery 630 Stress: 30-Jun-2022 30 Discovery 630 0.4mg Lexiscan. Images obtained in supine and prone position. SPECT RESULTS Technical Quality: Excellent Raw Data Analysis: Normal Image Corrections: No attenuation or motion correction applied Summed Stress Score: 0 Summed Rest Score: 0 Summed Difference Score: 0 PERFUSION FINDINGS Uniform myocardial tracer uptake with no significant perfusion abnormalities FUNCTIONAL RESULTS (calculated via Gated SPECT) Stress Image LV EF (%): 66 Stress EDV (mL):119 TID: 1.01 Stress ESV (mL):41 FUNCTIONAL FINDINGS: Segmental wall motion analysis revealing no gross wall motion abnormalities IMPRESSIONS 1. Myocardial perfusion imaging revealing fairly uniform myocardial tracer uptake with no significant perfusion abnormalities. 2. Normal LV ejection fraction of 66%. 3. LV wall motion analysis revealing no gross wall motion abnormalities. 4. Normal LV volume Low probability for coronary ischemia, based on the above findings Dr Mercedes Redmond MD FAC (Electronically Signed) Final Date: 30 June 2022 10:02 S
[2022-06-30] MEDS: regadenoson 0.4 Mg/5 ml Syringe IVP (07:20)
[2022-06-30] MEDS: metoprolol tartrate 25 mg Tablet PO (09:33)
[2022-06-30] MEDS: pantoprazole DR 40 mg Tablet PO (09:33)
[2022-06-30] MEDS: fluoxetine 20 mg Capsule 40 MG PO (09:33)
[2022-06-30] MEDS: aspirin 81 mg EC Tablet PO (09:36)
--- NOTE | 2022-06-30 12:00 | P.DS_ITS ---
Discharge Providers Date of Admission: 06/28/22 20:51 Date of Discharge: June 30, 2022 Attending Provider at Admission: Promise Jerry MD Attending Provider at Discharge: Devaughn Rodrigues MD Primary Care Provider: DARSHANA Villa Diagnoses at Discharge Discharge Diagnosis (1) Chest pain: Status: Acute (2) Cardiac arrhythmia: Status: Acute (3) Adenocarcinoma of prostate: Status: Acute Reason for Visit Reason for Visit: CHEST PAIN Brief History: History as per HPI: Jone Boogie is a 52 year old male presenting to the emergency room with chief complaints of left-sided chest pain which is radiating in a bandlike fashion to his back and down his left arm.? Pain started at around 2:00.? Patient was carrying some groceries and could not continue doing his activity.? He had to lie down.? However resting did not make his chest pain any better.? It has been intermittent.? Stabbing type.? 10 out of 10 at its peak.? He presented to the emergency room with these circumstances.? EKG without acute ST-T wave changes.? Troponin series was negative.? He underwent a CTA of the chest abdomen and pelvis due to concerns for dissection but study was negative for the same.? Additionally no PE was found.? Negative for pancreatitis as well.? Patient has a past history of pancreatitis 4 years ago in the setting of gallbladder stones.? He has had several colonoscopies and endoscopies in the past for nonerosive gastritis. While in the ER, patient had an episode of what appeared to be V-fib on telemetry and he was briefly unresponsive.? Per discussion with ER physician this episode resolved spontaneously and patient has been asymptomatic since then except for intermittent chest pain.? Morphine has not helped his chest pain.? He does find benefit after being placed on a nitro patch. Hospital Course Hospital Course Patient was admitted to the hospital for further evaluation and management of possible chest pain with concern for episode of syncope associated with possible cardiac arrhythmia. Syncope is most likely related to vasovagal from the back pain he was having during the episode and cardiac arrhythmia is thought to be an artifact patient was placed on telemetry during hospitalization and did not have any further episodes. During hospitalization patient underwent echocardiogram which showed a normal EF without regional wall motion abnormality and he underwent cardiac stress test on 06/30 which was negative for any acute ischemia. He has been discharged in medically stable condition with advised to take aspirin and atorvastatin 20 mg daily at home. It is believed his symptoms are most likely musculoskeletal which aggravated on lifting heavy groceries. Physical Exam Narrative: General: Mild distress because of pain, AO x3, anxious HEENT: PERRLA, pupils bilaterally equal and reactive, pallors not present Chest: Normal vesicular breath sounds, no added sounds, equal good air entry bilaterally CVS: S1-S2 regular, no murmurs, no tachycardia, no gallops, no rubs Abdomen: Soft, nontender, no organomegaly, bowel sounds present Neuro: No focal deficits, no facial deformity, AO x3, power 5/5 in all limbs Discharge Data Studies Completed and Pending Completed Studies During Hospitalization Category Date Time Status CT head wo con* [id number] Stat Cat Scan 06/28/22 19:25 Completed CTA chest abdomen pelvis [CT ang ches abdpel 35940/ Cat Scan 06/28/22 18:01 Completed [id number]] Stat Cardiac Stress Test MIBI [Sestamibi Stress Test Request Exams 06/29/22 06:23 Draft ] Routine XR chest 1V portable [id number] Stat Exams 06/28/22 17:38 Completed NM hermann perf SPECT r/s* [id number] Routine Nuc Med 06/30/22 06:24 Completed CV. echo complete* [id number] Routine Ultrasound 06/29/22 11:31 Completed Pending at discharge Category Date Time Status Clostridioides Difficile PCR Routine Lab 06/29/22 18:15 Results Enteric Bacterial Panel by PCR Routine Lab 06/29/22 18:15 Results Enteric Parasite Panel by PCR Routine Lab 06/29/22 18:15 Results Immunochemical Fecal OCB Routine Lab 06/29/22 18:15 Results Lactoferrin Routine Lab 06/29/22 18:15 Results Radiology Impressions Chest X-Ray 06/28/22 17:38 IMPRESSION: 1. Mild left base atelectasis with possible small pleural effusion. Chest/Abdomen/Pelvis CTA 06/28/22 18:01 IMPRESSION: 1. No evidence for aortic aneurysm or dissection. 2. No evidence for pulmonary embolus. 3. 4 mm right pulmonary nodule. For patients at low risk (minimal or absent history of smoking and of other known risk factors), no routine follow-up is indicated. For patients at high risk (history of smoking or of other known risk factors), consider optional CT Chest at 12 months. (Reference: Jose) References: Jose Harvey et al. Guidelines for Management of Incidental Pulmonary Nodules Detected on CT Images: From the Fleischner Society 2017. Radiology. 2017;284(1):228-243. Head CT 06/28/22 19:25 IMPRESSION: No acute intracranial abnormality. Echocardiogram: CONCLUSIONS ?Normal left ventricular size and systolic function, EF 63 %. No ?regional wall motion abnormalities. ?Normal cardiac chamber sizes. ?Trace to mild tricuspid valve regurgitation.? Estimated ?pulmonary artery peak systolic pressure of 17 millimeters of ?mercury. ?There is no pericardial effusion. ?There are no intracardiac masses. ?No similar previous studies are available for comparison ?Dr Mercedes Redmond MD FACC ?(Electronically Signed) ?Final Date:? ? ? 29 June 2022 ? 18:51 Lexiscan stress test: IMPRESSIONS ?1.? Myocardial perfusion imaging revealing fairly uniform myocardial tracer ?uptake with no significant perfusion abnormalities. ?2.? Normal LV ejection fraction of 66%. ?3.? LV wall motion analysis revealing no gross wall motion abnormalities. ?4.? Normal LV volume ?Low probability for coronary ischemia, based on the above findings ?Dr Mercedes Redmond MD FACC ?(Electronically Signed) ?Final Date:? ? ? 30 June 2022 Laboratory Results WBC 5.3 10^3/uL (4.0-10.0) 06/30/22 04:45 RBC 4.00 10^6/uL (4.1-5.3) L 06/30/22 04:45 Hgb 12.0 g/dL (11.7-16.6) 06/30/22 04:45 Hct 35.6 % (42.0-52.0) L 06/30/22 04:45 MCV 89.0 fl (80-94) 06/30/22 04:45 MCH 30.0 pg (28.0-34.0) 06/30/22 04:45 MCHC 33.7 g/dL (30.0-36.0) 06/30/22 04:45 RDW 11.9 % (12.1-15.1) L 06/30/22 04:45 Plt Count 154 10^3/cmm (130-400) 06/30/22 04:45 MPV 8.3 fL (7.4-10.4) 06/30/22 04:45 Neut % (Auto) 76.9 % 06/30/22 04:45 Lymph % (Auto) 9.6 % 06/30/22 04:45 Bledsoe % (Auto) 11.2 % 06/30/22 04:45 Eos % (Auto) 1.5 % 06/30/22 04:45 Baso % (Auto) 0.6 % 06/30/22 04:45 Neut # (Auto) 4.07 10^3/uL (1.8-7.7) 06/30/22 04:45 Lymph # (Auto) 0.5 10^3/uL (0.8-4.8) L 06/30/22 04:45 Bledsoe # (Auto) 0.6 10^3/uL (0.2-0.9) 06/30/22 04:45 Eos # (Auto) 0.1 10^3/uL (0.0-0.8) 06/30/22 04:45 Baso # (Auto) 0.0 10^3/uL (0.0-0.1) 06/30/22 04:45 Nucleated RBC % (auto) 0 % 06/30/22 04:45 Nucleated RBCs # 0.0 /100WBC 06/30/22 04:45 D-Dimer 0.52 ug/mIFEU (0-0.59) 06/28/22 17:30 Specimen Type Arterial 06/28/22 20:39 Sample Site Radial, left 06/28/22 20:39 ABG pH 7.45 (7.35-7.45) 06/28/22 20:39 ABG pCO2 32.6 mmHg (35-45) L 06/28/22 20:39 ABG pO2 61.1 mmHg (80.0-100.0) L 06/28/22 20:39 ABG HCO3 22.4 mmol/L (22-26) 06/28/22 20:39 ABG Base Excess -1.0 mmol/L (-2.0-2.0) 06/28/22 20:39 Claude Test Pos 06/28/22 20:39 Hematocrit 40.6 % (42-52) L 06/28/22 20:39 O2 Delivery Device None 06/28/22 20:39 FiO2 21.0 % 06/28/22 20:39 Barker Peeler ID [id number] 06/28/22 20:39 Sodium 133 mmol/L (136-145) L 06/30/22 04:45 Potassium 3.7 mmol/L (3.5-5.1) 06/30/22 04:45 Chloride 101 mmol/L (98-107) 06/30/22 04:45 Carbon Dioxide 24 mmol/L (22-29) 06/30/22 04:45 Anion Gap 11.7 (5-19) 06/30/22 04:45 BUN 14 mg/dL (6-20) 06/30/22 04:45 Creatinine 1.1 mg/dL (0.7-1.2) 06/30/22 04:45 GFR Calculation 69.8 mL/min (90-130) L 06/30/22 04:45 Glucose 94 mg/dL (65-115) 06/30/22 04:45 Estimat Average Glucose 85 06/30/22 04:45 Hemoglobin A1c 4.6 % (4.0-6.0) 06/30/22 04:45 Calculated Osmolality 276 mOsm/kg (285-295) L 06/30/22 04:45 Lactic Acid 2.2 mmol/L (0.5-2.2) 06/28/22 18:58 Lactic Acid (Sepsis) 1.7 mmol/L (0.5-2.2) 06/28/22 21:58 Calcium 8.5 mg/dL (8.5-10.5) 06/30/22 04:45 Magnesium 1.8 mg/dL (1.7-2.3) 06/28/22 19:10 Iron 22 ug/dL (59-158) L 06/29/22 04:31 TIBC 289 mcg/dl 06/29/22 04:31 % Saturation 7.6 % (20-50) L 06/29/22 04:31 Unsat Iron Binding 267 ug/dL (112-347) 06/29/22 04:31 Total Bilirubin 0.3 mg/dL (0.15-1.2) 06/30/22 04:45 AST 16 U/L (0-40) 06/30/22 04:45 ALT 18 U/L (0-41) 06/30/22 04:45 Alkaline Phosphatase 70 U/L (40-130) 06/30/22 04:45 Troponin T Baseline 6 ng/L (0-15) 06/28/22 17:30 Troponin T 120 Minute 6.29 ng/L (0-15) 06/28/22 19:18 Delta Troponin T 0.29 ABS# (0-10) 06/28/22 19:18 Troponin T Hi Sens 6Hr 9.09 ng/L (0-15) 06/28/22 23:28 Troponin T Hi Sens 6Hr Delta 2.8 ng/L (0-12) 06/28/22 23:28 NT-Pro-B Natriuret Pep 80 pg/mL (0-125) 06/28/22 17:30 Total Protein 6.1 g/dL (6.6-8.7) L 06/30/22 04:45 Albumin 3.5 g/dL (3.5-5.2) 06/30/22 04:45 Globulin 2.6 g/dL (1.3-4.6) 06/30/22 04:45 Triglycerides 165 mg/dL (0-150) H 06/30/22 04:45 Cholesterol 169 mg/dL (0-200) 06/30/22 04:45 LDL Cholesterol, Calc 90 mg/dL (50-129) 06/30/22 04:45 Total VLDL Cholesterol 33 mg/dL (0-30) H 06/30/22 04:45 HDL Cholesterol 46 mg/dL (60-100) L 06/30/22 04:45 Cholesterol/HDL Ratio 3.67 mg/dL (1.0-5.00) 06/30/22 04:45 Lipase 30 U/L (13-60) 06/28/22 17:30 Vitamin B12 434 pg/mL (232-1245) 06/29/22 04:31 Folate 13.0 ng/mL (4.5-32.2) 06/29/22 04:31 TSH 1.75 uIU/mL (0.27-4.20) 06/29/22 04:31 Urine Color Yellow (Yellow) 06/28/22 20:06 Urine Appearance Clear (CLEAR) 06/28/22 20:06 Urine pH 9 (5-7) H 06/28/22 20:06 Ur Specific [place] 1.015 (1.005-1.030) 06/28/22 20:06 Urine Protein Trace (Negative) 06/28/22 20:06 Urine Glucose (UA) Norm (Normal) 06/28/22 20:06 Urine Ketones 1+ (Negative) H 06/28/22 20:06 Urine Blood Neg (Negative) 06/28/22 20:06 Urine Nitrate Negative (Negative) 06/28/22 20:06 Urine Bilirubin Neg (Negative) 06/28/22 20:06 Prot Sulfosalicylic Acd Negative (Negative) 06/28/22 20:06 Urine Urobilinogen Norm mg/dL (Negative) 06/28/22 20:06 Ur Leukocyte Esterase Negative (Negative) 06/28/22 20:06 Urine RBC None /hpf (0-2) 06/28/22 20:06 Urine WBC None /hpf (0-5) 06/28/22 20:06 Ur Squamous Epith Cells 0-4 /hpf (0-5) H 06/28/22 20:06 Amorphous Sediment Not Reportable 06/28/22 20:06 Urine Bacteria None /hpf (NONE) 06/28/22 20:06 Urine Mucus Trace /hpf 06/28/22 20:06 Salicylates 1.6 mg/dL (3-10) L 06/28/22 19:10 Urine Opiates Screen Positive ng/mL (Negative) H 06/28/22 20:06 Acetaminophen < 5.0 ug/mL (10-30) L 06/28/22 19:10 Ur Barbiturates Screen Negative ng/mL (Negative) 06/28/22 20:06 Ur Phencyclidine Scrn Negative ng/mL (Negative) 06/28/22 20:06 Ur Amphetamines Screen Negative ng/mL (Negative) 06/28/22 20:06 U Benzodiazepines Scrn Positive ng/mL (Negative) H 06/28/22 20:06 Urine Cocaine Screen Negative ng/mL (Negative) 06/28/22 20:06 U Marijuana (THC) Screen Negative ng/mL (Negative) 06/28/22 20:06 Ethyl Alcohol < 10 mg/dL (0-10) 06/28/22 19:10 Vitals Last Vital Signs Temp 97.9 F 06/30/22 08:00 Pulse 59 L 06/30/22 08:00 Resp 17 06/30/22 08:00 BP 113/77 06/30/22 08:00 Pulse Ox 96 06/30/22 08:00 O2 Del Method 06/30/22 08:00 Discharge Plan Discharge Patient Disposition: Home Condition: Stable Prescriptions: New aspirin 81 mg Tablet,Delayed Release (Dr/Ec) 81 mg PO DAILY Qty: 30 0RF atorvastatin 40 mg Tablet 20 mg PO BEDTIME Qty: 30 0RF Continued oxycodone-acetaminophen [Percocet] 5-325 mg tablet 1 - 2 tab PO .Q4-6H PRN (Reason: pain) 30 Days Qty: 90 0RF tramadol 50 mg tablet 50 mg PO BID PRN (Reason: pain) 30 Days Qty: 60 0RF budesonide-formoterol [Symbicort] 80-4.5 mcg/actuation HFA aerosol inhaler 2 puff inhalation BID PRN (Reason: unknown) albuterol sulfate 90 mcg/actuation aerosol powdr breath activated 1 inh inhalation QID PRN (Reason: Shortness Of Breath) Compazine 10 mg tablet 10 mg PO Q4H PRN (Reason: Mild Nausea) Qty: 30 3RF lorazepam 1 mg tablet 0.5 - 1 mg PO Q6H PRN (Reason: Severe Nausea) Qty: 30 3RF tamsulosin 0.4 mg capsule 0.4 mg PO BEDTIME Qty: 30 2RF sildenafil [Viagra] 50 mg tablet 50 mg PO DAILY PRN (Reason: sexual activity) Qty: 5 0RF Rx Instructions: administer 30 minutes to 4 hours before activity fluoxetine 40 mg capsule See Rx Instructions .ROUTE .COMPLEX Qty: 60 0RF Dose Instruction: TAKE 1 CAPSULE BY MOUTH TWICE DAILY IN THE MORNING AND AT NOON/MIDDAY Rx Instructions: TAKE 1 CAPSULE BY MOUTH TWICE DAILY IN THE MORNING AND AT NOON/MIDDAY naloxone [Narcan] 4 mg/actuation spray,non-aerosol 1 spray INTRANASAL DIRECTED Rx Instructions: 1 spray into each nosril every 2-3minutes prn bicalutamide 50 mg tablet 50 mg PO QAM Discharge Orders: Discharge Order (Routine); Ordered 06/30/22 Ordered By: Devaughn Rodrigues Referrals: Jaleesa Valdez FNP [Primary Care Provider] - 7-10 days Discharge Diet: Regular Discharge Activity: Resume usual activity and Increase activity as tolerated Patient Instructions: Opioid Safety Activity Restrictions/Additional Instructions: Please follow-up with a primary care provider within next 1 week. You are due new medication aspirin and atorvastatin. Please recheck your cholesterol in 6 months after starting atorvastatin. Discharge Attestations Time Spent in Discharge Care*: greater than 30 min Specific Discharge Activities: educating patient, educating and/or supporting family/caregiver, discussing with pcp/other providers, discussing with rn case management/social workers/dc planners, documenting/other paperwork and evaluating patient/reviewing data Status at Discharge: Cognitive status at discharge: cognitively intact , Behavioral status at discharge: cooperative , Functional status at discharge: independent ambulation , Overall status at discharge: patient is back to baseline Quality Metrics Clinical Quality Measures [ No reported AMI, CVA or VTE this stay] Coding Level of Care Code 19044 Total time (in minutes) for Discharge: 50 Diagnoses Chest pain R07.9 Cardiac arrhythmia I49.9 Adenocarcinoma of prostate C61
== END 2022-06-30 13:56 | disposition home or self-care (01) ==
LOC: ER 20:21 → CSU 20:51
PROVIDERS: Admitting Provider Student in an Organized Health Care Education/Training Program; Emergency Provider Emergency Medicine; PCP Nurse Practitioner Family; Visit Provider Student in an Organized Health Care Education/Training Program
DX: I49.9 Cardiac arrhythmia, unspecified (principal); A03.9 Shigellosis, unspecified; C61 Malignant neoplasm of prostate; R55 Syncope and collapse; M79.18 Myalgia, other site; Z79.891 Long term (current) use of opiate analgesic; A04.5 Campylobacter enteritis
CPT/HCPCS: 36415; 36600; 70450; 71045; 71275; 74174; 78452; 80053; 80061; 80306; 80307; 81001; 82274; 82607; 82746; 82803; 83036; 83540; 83550; 83605; 83630; 83690; 83735; 83880; 84443; 84484; 85025; 85378; 87493; 87506; 93005; 93306; 96372; 96374; 96375; 96376; 99291; A9500; G0378; J1650; J2270; J2405; J2785; J3010; Q9967

== ENCOUNTER 2022-07-12 07:03 | Outpatient (CLI) | payer MEDICARE, MEDICAID, SELFPAY ==
[2022-07-12] MEDS: iohexol 350 mg/mL 500 mL Btl (per mL) IV (07:26)
--- NOTE | 2022-07-12 07:30 | CT_ITS ---
WS: [id number] EXAMINATION: CT chest w con* [id number] REASON FOR EXAM: left 6th rib pain. History of prostate cancer on chemotherapy ORDER DATE: 07/12/2022 7:13 AM COMPARISON: CT chest abdomen w con*06/28/2022 RADIATION DOSE METRICS: Total DLP (mGy-cm): 369.51 FINDINGS: Lungs: 4 mm right middle lobe nodule again noted. Minimal atelectasis in the lower lobes and left lung base. The lungs are otherwise clear. Pleural spaces: Unremarkable. No pneumothorax. No pleural effusion. Heart: Unremarkable. No cardiomegaly. No pericardial effusion. Abdomen: Multiple hepatic cysts, less than 20 Hounsfield units. Additional hypodensities are too small to characterize but are also most likely cysts. Gallbladder and bile ducts: Cholecystectomy. The bile ducts are normal. Pancreas: Unremarkable. No mass. No ductal dilation. Spleen: Unremarkable. No splenomegaly. Adrenal glands: Unremarkable. No mass. Kidneys: Partially visualized. No hydronephrosis. Impression 1. No evidence of osseous lytic or blastic changes including the left ribs. 2. Again noted 4 mm right pulmonary nodule. For patients at low risk (minimal or absent history of smoking and of other known risk factors), no routine follow-up is indicated. For patients at high risk (history of smoking or of other known risk factors), consider optional CT Chest at 12 months. (Reference: Jose)
== END 2022-07-12 07:04 | disposition home or self-care (01) ==
LOC: RAD 07:04
PROVIDERS: PCP Nurse Practitioner Family; Visit Provider Nurse Practitioner
DX: R07.81 Pleurodynia (principal); R91.1 Solitary pulmonary nodule
CPT/HCPCS: 71260; Q9967

== ENCOUNTER 2022-07-15 07:37 | Outpatient (CLI) | payer MEDICARE, MEDICAID, SELFPAY ==
[2022-07-15 07:57] LABS: Basophils # 0.1 10^3/uL (0.0-0.1); Basophils % 1.9 %; Eosinophils # 0.2 10^3/uL (0.0-0.8); Eosinophils % 4.2 %; Hematocrit 39.4 % (42.0-52.0); Hemoglobin 13.3 g/dL (11.7-16.6); Lymphocytes # 0.8 10^3/uL (0.8-4.8); Lymphocytes % 21.7 %; Mean Corpuscular HGB Conc 33.8 g/dL (30.0-36.0); Mean Corpuscular Hemoglobin 30.3 pg (28.0-34.0); Mean Corpuscular Volume 89.7 fl (80-94); Mean Platelet Volume 8.3 fL (7.4-10.4); Monocytes # 0.4 10^3/uL (0.2-0.9); Monocytes % 11.7 %; Neutrophils # 2.17 10^3/uL (1.8-7.7); Neutrophils % 60.2 %; Nucleated Red Blood Cells % 0 %; Platelet Count 245 10^3/cmm (130-400); Red Blood Count 4.39 10^6/uL (4.1-5.3); Red Cell Distribution Width 11.9 % (12.1-15.1); White Blood Count 3.6 10^3/uL (4.0-10.0)
[2022-07-15 08:28] LABS: Alanine Aminotransferase 28 U/L (0-41); Alkaline Phosphatase 89 U/L (40-130); Aspartate Amino Transferase 24 U/L (0-40); Blood Urea Nitrogen 8 mg/dL (6-20); Carbon Dioxide 25 mmol/L (22-29); Chloride 106 mmol/L (98-107); Globulin 2.8 g/dL (1.3-4.6); Glomerular Filtration Rate 69.8 mL/min (90-130); Glucose 97 mg/dL (65-115); Osmolality Calculated 288 mOsm/kg (285-295); Prostate Specific Antigen 0.037 ng/mL (0-4); Sodium 140 mmol/L (136-145); Total Bilirubin 0.5 mg/dL (0.15-1.2); Total Protein 6.8 g/dL (6.6-8.7)
[2022-07-15 08:29] LABS: Anion Gap 12.9 (5-19); Potassium 3.9 mmol/L (3.5-5.1)
== END 2022-07-15 07:38 | disposition home or self-care (01) ==
PROVIDERS: PCP Nurse Practitioner Family; Visit Provider Internal Medicine Hematology & Oncology
DX: C61 Malignant neoplasm of prostate (principal); M89.9 Disorder of bone, unspecified; R91.1 Solitary pulmonary nodule; D72.819 Decreased white blood cell count, unspecified; J98.11 Atelectasis; J90 Pleural effusion, not elsewhere classified
CPT/HCPCS: 36415; 80053; 84153; 85025; 99213; 99214

== ENCOUNTER 2022-07-15 08:15 | Oncology outpatient (recurring) (ONCR) | payer MEDICARE, MEDICAID, SELFPAY ==
--- NOTE | 2022-06-24 10:54 | ONCRAD EPV_ITS ---
Radiation Oncology Follow-Up Note Patient Name: Jone Boogie Date of : 1970 Date of Service: 06/24/2022 Attending Physician: Robert Damon M.D. Jone Boogie returned to my office this morning for a routinely scheduled follow-up appointment. He completed prostate radiotherapy in May for management of a clinical stage IIA (T1cN0) favorable intermediate-risk prostate cancer versus low-volume metastatic disease. He initially was identified to have an elevated PSA level (6.7 ng/mL) in September 2020. A transrectal ultrasound-guided biopsy of the prostate gland performed in December 2020 diagnosed atypical small acinar proliferation (PAYTON) within the left lobe. A PSA level obtained in July of 2021 was 10.8 ng/mL. A repeat TRUS biopsy obtained on 2021 identified an adenocarcinoma from the left lobe of the prostate with a Mary score of 6 (1/6 cores with 5% of the sample involved) and PAYTON reported in the specimens from the right and left lobes. A Genomic Prostate Score reported a result of 33 indicating a low likelihood of adverse pathology at radical prostatectomy. A PSMA scan ordered on November 30, 2021 identified activity in the peripheral zones of the prostate bilaterally (SUV 4.8), the left sixth rib (SUV 5.3), and subtle increase of tracer accumulation in the bilateral iliac bones that was associated with sclerotic changes. A biopsy was not able to be performed due to size. A nuclear bone scintigraphy scan obtained on April 15, 2022 did not reveal any osseous lesions suspicious for metastatic disease. Daily radiotherapy was administered between the dates of April 27, 2022 through May 26, 2022. A prescribed dose of 60 Gy was delivered in 20 fractions encompassing 29 elapsed days. On review of systems, he described left chest wall pain. On physical examination, the patient weighed 207 pounds. The temperature is 97.4 ???F and his blood pressure was 158/95 mmHg. The pulse was 63 bpm and his respiratory rate was 18 breaths per minute. In summary, Mr. Boogie returned for a routine follow-up appointment. I will order a PSA level today. He will continue as scheduled with medical oncology. Signed by: Robert Damon 06/24/2022 10:52:41 AM
[2022-06-24 12:59] LABS: Prostate Specific Antigen 0.137 ng/mL (0-4)
== END 2022-07-22 23:59 | disposition home or self-care (01) ==
PROVIDERS: PCP Nurse Practitioner Family; Visit Provider Radiology Radiation Oncology
DX: Z08 Encounter for follow-up examination after completed treatment for malignant neoplasm; Z85.46 Personal history of malignant neoplasm of prostate; R91.1 Solitary pulmonary nodule; D72.819 Decreased white blood cell count, unspecified; Z92.21 Personal history of antineoplastic chemotherapy; Z92.3 Personal history of irradiation
CPT/HCPCS: 36415; 84153; 99024; 99213

== ENCOUNTER → 2022-08-30 14:34 | Outpatient (BNVA) | payer MEDICARE, MEDICAID, SELFPAY | PROVIDERS: PCP Nurse Practitioner Family; Visit Provider Internal Medicine Cardiovascular Disease | DX: R07.9 Chest pain, unspecified (principal); I49.01 Ventricular fibrillation; I10 Essential (primary) hypertension; R55 Syncope and collapse | CPT/HCPCS: 99205 ==

== ENCOUNTER 2022-09-13 10:10 | Outpatient (CLI) | payer MEDICARE, MEDICAID, SELFPAY ==
[2022-09-13 15:02] LABS: Basophils # 0.1 10^3/uL (0.0-0.1); Basophils % 1.1 %; Eosinophils # 0.1 10^3/uL (0.0-0.8); Eosinophils % 2.1 %; Hemoglobin 13.2 g/dL (11.7-16.6); Lymphocytes # 1.1 10^3/uL (0.8-4.8); Lymphocytes % 25.5 %; Mean Corpuscular HGB Conc 34.7 g/dL (30.0-36.0); Mean Corpuscular Hemoglobin 30.6 pg (28.0-34.0); Mean Platelet Volume 8.7 fL (7.4-10.4); Monocytes # 0.5 10^3/uL (0.2-0.9); Monocytes % 11.4 %; Neutrophils # 2.62 10^3/uL (1.8-7.7); Neutrophils % 59.7 %; Nucleated Red Blood Cells % 0 %; Platelet Count 216 10^3/cmm (130-400); Red Blood Count 4.32 10^6/uL (4.1-5.3); Red Cell Distribution Width 11.7 % (12.1-15.1); White Blood Count 4.4 10^3/uL (4.0-10.0)
[2022-09-13 15:17] LABS: INR 0.94 (0.83-1.21); Prothrombin Time (Patient) 12.9 Seconds (12.0-15.1)
[2022-09-13 15:26] LABS: Blood Urea Nitrogen 11 mg/dL (6-20); Calcium 9.2 mg/dL (8.5-10.5); Carbon Dioxide 25 mmol/L (22-29); Chloride 104 mmol/L (98-107); Glomerular Filtration Rate 48.8 mL/min (90-130); Glucose 91 mg/dL (65-115); Osmolality Calculated 287 mOsm/kg (285-295); Sodium 139 mmol/L (136-145)
[2022-09-13 15:30] LABS: Anion Gap 14.4 (5-19); Potassium 4.4 mmol/L (3.5-5.1)
== END 2022-09-14 10:11 | disposition home or self-care (01) ==
LOC: CCL 09-14 10:10
PROVIDERS: PCP Nurse Practitioner Family; Visit Provider Internal Medicine Cardiovascular Disease
DX: Z01.818 Encounter for other preprocedural examination (principal); I49.01 Ventricular fibrillation
CPT/HCPCS: 36415; 80048; 85025; 85610; 86850; 86900

== ENCOUNTER → 2022-09-21 08:41 | Outpatient (BNVA) | payer MEDICARE, MEDICAID, SELFPAY | PROVIDERS: PCP Nurse Practitioner Family; Visit Provider Internal Medicine Cardiovascular Disease | DX: I49.01 Ventricular fibrillation (principal); I10 Essential (primary) hypertension; I49.9 Cardiac arrhythmia, unspecified | CPT/HCPCS: 80053; 84153; 84403; 85025 ==

== ENCOUNTER 2022-10-13 14:27 | Oncology outpatient (recurring) (ONCR) | payer MEDICARE, MEDICAID, SELFPAY ==
[2022-10-13 14:45] VITALS: BP 148/83; PULSE 52; RESP 18; TEMP 36.2; O2SAT 97
[2022-10-13 15:00] LABS: Basophils % 0.8 %; Eosinophils # 0.1 10^3/uL (0.0-0.8); Eosinophils % 1.9 %; Hematocrit 38.3 % (42.0-52.0); Hemoglobin 13.3 g/dL (11.7-16.6); Lymphocytes # 1.2 10^3/uL (0.8-4.8); Lymphocytes % 25.7 %; Mean Corpuscular HGB Conc 34.7 g/dL (30.0-36.0); Mean Corpuscular Hemoglobin 30.2 pg (28.0-34.0); Mean Corpuscular Volume 86.8 fl (80-94); Mean Platelet Volume 8.5 fL (7.4-10.4); Monocytes # 0.5 10^3/uL (0.2-0.9); Monocytes % 10.9 %; Neutrophils % 60.5 %; Nucleated Red Blood Cells % 0 %; Platelet Count 222 10^3/cmm (130-400); Red Blood Count 4.41 10^6/uL (4.1-5.3); Red Cell Distribution Width 11.6 % (12.1-15.1); White Blood Count 4.8 10^3/uL (4.0-10.0)
[2022-10-13 15:27] LABS: Alanine Aminotransferase 16 U/L (0-41); Albumin Level 4.1 g/dL (3.5-5.2); Alkaline Phosphatase 109 U/L (40-130); Aspartate Amino Transferase 14 U/L (0-40); Blood Urea Nitrogen 10 mg/dL (6-20); Calcium 9.1 mg/dL (8.5-10.5); Carbon Dioxide 25 mmol/L (22-29); Chloride 103 mmol/L (98-107); Globulin 2.8 g/dL (1.3-4.6); Glomerular Filtration Rate 87.9 mL/min (90-130); Glucose 104 mg/dL (65-115); Osmolality Calculated 281 mOsm/kg (285-295); Sodium 136 mmol/L (136-145); Testosterone Total 2.5 ng/dL (193-740); Total Bilirubin 0.3 mg/dL (0.15-1.2); Total Protein 6.9 g/dL (6.6-8.7)
[2022-10-13 15:35] LABS: Prostate Specific Antigen < 0.014 ng/mL (0-4)
== END 2022-10-21 23:59 | disposition home or self-care (01) ==
PROVIDERS: PCP Nurse Practitioner Family; Visit Provider Internal Medicine Hematology & Oncology
DX: C61 Malignant neoplasm of prostate (principal); Z79.899 Other long term (current) drug therapy; Z92.3 Personal history of irradiation
CPT/HCPCS: 36415; 80053; 84153; 84403; 85025; 99214

== ENCOUNTER 2022-11-02 23:05 | Inpatient (IN) | payer MEDICARE, MEDICAID, SELFPAY ==
[2022-11-02] VITALS (9 sets, daily range): BP systolic 142–213; BP diastolic 87–155; PULSE 54–59; RESP 21–26; TEMP 36.8; O2SAT 96–100; BMI 29.5
--- NOTE | 2022-11-02 23:06 | XRR_ITS ---
PROCEDURE INFORMATION: Exam: XR Chest Exam date and time: 11/02/2022 11:14 PM Age: 52 years old Clinical indication: Other: AMS TECHNIQUE: Imaging protocol: Radiologic exam of the chest. Views: 1 view. COMPARISON: CT chest w con* [id number] 07/12/2022 7:22 AM FINDINGS: Lungs: Unremarkable. No consolidation. Pleural spaces: Unremarkable. No pleural effusion. No pneumothorax. Heart/Mediastinum: Unremarkable. No cardiomegaly. Bones/joints: Partially imaged lower cervical spinal fusion change. XR/XR chest 1V portable [id number] IMPRESSION: No acute findings.
--- NOTE | 2022-11-02 23:07 | CTR_ITS ---
PROCEDURE INFORMATION: Exam: CT Head Without Contrast Exam date and time: 11/02/2022 11:08 PM Age: 52 years old Clinical indication: Stroke-like symptoms; RT upper extremity and RT lower extremity weakness; Additional info: Symptoms of acute stroke. Lkw 1045 am. Right side upper and lower extemity deficits, numbess of tongue and right side of face TECHNIQUE: Imaging protocol: Computed tomography of the head without contrast. Radiation optimization: All CT scans at this facility use at least one of these dose optimization techniques: automated exposure control; mA and/or kV adjustment per patient size (includes targeted exams where dose is matched to clinical indication); or iterative reconstruction. Other technique: STROKE PROTOCOL was implemented. REPORTING DATA: Count of CT and Cardiac NM exams in prior 12 months: This patient has received 6 known CTs and 0 known cardiac nuclear medicine studies in the 12 months prior to the current study. COMPARISON: CT head wo con* [id number] 06/28/2022 7:34 PM RADIATION DOSE METRICS: Total DLP (mGy-cm): 1213.89 FINDINGS: Brain: No acute infarct. No hemorrhage. Unremarkable white matter for age. No mass effect. Cerebral ventricles: No ventriculomegaly. Paranasal sinuses: No significant inflammation. No fluid levels. Mastoid air cells: Right mastoid effusion is unchanged. Bones/joints: Unremarkable. No acute fracture. Soft tissues: Unremarkable. CT/CT head thrombolytic [id number] IMPRESSION: No acute intracranial abnormality. ASSESSMENT: ASPECTS ([place] Stroke Program Early CT Score) is 10.
--- NOTE | 2022-11-02 23:13 | ECG_ITS ---
[facility] Test Date: 2022-11-02 Pat Name: Jone Boogie Department: Room: Gender: Male Entry Level Account Representative: : 1970 Requested By: Lucia Bashir Order Number: [id number] Trevor MD: Toni Vazquez M.D. Measurements Intervals [place] Rate: 57 P: 47 VA: 161 QRS: 12 QRSD: 106 T: 47 QT: 450 QTc: 441 Interpretive Statements SINUS BRADYCARDIA Compared to ECG 06/29/2022 01:05:02 Sinus rhythm no longer present Electronically Signed On 11-03-2022 14:47:07 CDT by Toni Vazquez M.D. [id number]
[2022-11-02 23:24] LABS: Basophils # 0.1 10^3/uL (0.0-0.1); Basophils % 1.2 %; Eosinophils # 0.2 10^3/uL (0.0-0.8); Eosinophils % 2.5 %; Hematocrit 40.2 % (42.0-52.0); Hemoglobin 13.9 g/dL (11.7-16.6); Lymphocytes # 1.7 10^3/uL (0.8-4.8); Lymphocytes % 28.5 %; Mean Corpuscular HGB Conc 34.6 g/dL (30.0-36.0); Mean Corpuscular Hemoglobin 29.9 pg (28.0-34.0); Mean Corpuscular Volume 86.5 fl (80-94); Mean Platelet Volume 8.6 fL (7.4-10.4); Monocytes # 0.7 10^3/uL (0.2-0.9); Monocytes % 11.9 %; Neutrophils # 3.27 10^3/uL (1.8-7.7); Neutrophils % 55.6 %; Nucleated Red Blood Cells % 0 %; Platelet Count 251 10^3/cmm (130-400); Red Blood Count 4.65 10^6/uL (4.1-5.3); Red Cell Distribution Width 11.9 % (12.1-15.1); White Blood Count 5.9 10^3/uL (4.0-10.0)
--- NOTE | 2022-11-02 23:24 | ED_ITS ---
HPI - Neuro Symptoms/Deficit General: Chief Complaint: Neuro Symptoms/Deficit Stated Complaint: CONFUSION Time Seen by Provider: 11/02/22 23:06 Source: family and EMS Mode of arrival: EMS Limitations: altered mental status History of Present Illness: 52-year-old male who brought in by EMS for possible stroke. Most history obtained was from his daughter she states that he had been complaining of some chest pain earlier today and been hypertensive she states she went and checked on him this evening she states that patient's did state that he had some slight confusion throughout the day but nothing severe she states that while she was there he had a sudden severe decline in 2139. She states that he stopped moving his right side was having a hard time speaking did not know his name he thought the year was 2021. He does have right-sided weakness here. Review of Systems General: Reports: ROS unobtainable due to mental status [facility] ED PFSH: Medical History Adenocarcinoma of prostate Afib GERD (gastroesophageal reflux disease) Metastatic adenocarcinoma to prostate Psychiatric care Pulmonary nodules Testalgia Surgical History H/O esophagogastroduodenoscopy (06/23/21) mild gastritis H/O neck surgery for trauma Status post colonoscopy (~06/23/21) normal Status post laparoscopic cholecystectomy Family History Father , AT AGE 50'S Lung disease Mother Lung disease COPD Social History Smoking and tobacco status: never smoked Alcohol intake: never Substance/Drug Use: never Adopted: No Lives independently: Yes Household members: spouse Marital status: Current occupational status: unemployed NIH stroke score NIHSS: Level Of Consciousness - 1a: 0 Level Of Consciousness Questions - 1b: Neither Correct Level Of Consciousness Commands - 1c: Both Correct Best Gaze - 2: Normal Visual [place] - 3: Partial Hemianopia Facial Palsy - 4: Normal Motor Arm Right - 5: Effort Against [place] Motor Arm Left - 5: No Drift Motor Leg Right - 6: No Effort Against [place] Motor Leg Left - 6: Drift Limb Ataxia - 7: Absent Sensory - 8: Mild To Moderate Loss Best Language - 9: Mild/Moderate Aphasia Dysarthia - 10: Normal Extinction And Inattention - 11: 0 Score: Total Score: 11 Physical Exam Const: COMMON NORMALS: negative for patient oriented x3 EXAM LIMITATIONS: altered mental status GENERAL APPEARANCE: ill appearing HENMT: COMMON NORMALS: normocephalic and atraumatic HEAD & SCALP: normocephalic and atraumatic Eye: COMMON NORMALS: Equal, round and reactive pupils present and EOMs intact bilaterally PUPIL: Yes Equal, round and reactive pupils present Neck/C-Spine: COMMON NORMALS: full ROM and supple Chest: COMMONS NORMALS: normal inspection of the chest Resp: COMMON NORMALS: normal respiratory effort Cardio: COMMON NORMALS: regular rate and regular rhythm RATE: regular rate RHYTHM: regular rhythm GI: COMMON NORMALS: Normal to inspection, nondistended, normoactive bowel sounds present, Soft to palpation and non-tender PALPATION: Yes Soft to palpation Extremity: COMMON NORMALS: normal to inspection; negative for full ROM Neuro: COMMON NORMALS: negative for patient oriented x3 OTHER: Patient here has severe weakness of the right upper extremity and right lower extremity he is has confusion as well. Psych: COMMON NORMALS: negative for mental status grossly normal Skin: COMMON NORMALS: no rashes or lesions noted GENERAL SKIN EXAM: no rashes or lesions noted Course Reevaluation(s): Reevaluation #1: Patient presents with concerns for stroke. He has a NIH of 9 here right-sided weakness with history from daughter last known normal was 2139 and was witnessed by her. I did give daughter and risk and benefits of tPA patient was hypertensive when he arrived. Did give him 30 mg of labetalol and started on a Cardene drip to be elevated his blood pressure under the acceptable parameters for tPA. Patient was administered tPA at 2357 Time: 23:57 Vital Signs: Vital signs: Vital Signs Temperature 98.3 F 11/02/22 23:09 Pulse Rate 71 11/03/22 01:35 Respiratory Rate 27 H 11/03/22 01:35 Blood Pressure 137/89 11/03/22 01:35 Pulse Oximetry 99 11/03/22 01:20 Oxygen Delivery Me thod Room Air 11/03/22 01:20 MDM - Neuro Symptoms/Deficit Medical Decision Making Patient presents with blurred vision along with right-sided weakness onset at 9:40 PM patient was given tPA here his blood pressures been under control did have him on Cardene drip but was able to stop it. He had some symptom improvement his blurry vision has improved his confusion is improved he has gained some movement in the right side I spoke to the hospitalist will admit the ICU at this time CTA shows no signs of a large clot is not a retrieval candidate Medical Records I reviewed the patient's medical records. Lab Data I reviewed the patient's lab results. 11/02/22 23:14 11/02/22 23:14 Radiology Impressions Chest X-Ray 11/02/22 23:06 IMPRESSION: No acute findings. Head CT 11/02/22 23:07 IMPRESSION: No acute intracranial abnormality. ASSESSMENT: ASPECTS ([place] Stroke Program Early CT Score) is 10. Head/Neck CTA 11/02/22 23:36 IMPRESSION: No large vessel stenosis or occlusion. IMPRESSION: No occlusion or significant stenosis. REFERENCES: NASCET CRITERIA. The degree of stenosis in the cervical segment of the internal carotid artery is based on NASCET criteria. Normal is no stenosis. Mild is less than 50% stenosis. Moderate is 50-69% stenosis. Severe is 70% to 99% stenosis. Total occlusion is no detectable patent lumen. Laboratory Results WBC 5.9 10^3/uL (4.0-10.0) 11/02/22 23:14 RBC 4.65 10^6/uL (4.1-5.3) 11/02/22 23:14 Hgb 13.9 g/dL (11.7-16.6) 11/02/22 23:14 Hct 40.2 % (42.0-52.0) L 11/02/22 23:14 MCV 86.5 fl (80-94) 11/02/22 23:14 MCH 29.9 pg (28.0-34.0) 11/02/22 23:14 MCHC 34.6 g/dL (30.0-36.0) 11/02/22 23:14 RDW 11.9 % (12.1-15.1) L 11/02/22 23:14 Plt Count 251 10^3/cmm (130-400) 11/02/22 23:14 MPV 8.6 fL (7.4-10.4) 11/02/22 23:14 Neut % (Auto) 55.6 % 11/02/22 23:14 Lymph % (Auto) 28.5 % 11/02/22 23:14 Ashley % (Auto) 11.9 % 11/02/22 23:14 Eos % (Auto) 2.5 % 11/02/22 23:14 Baso % (Auto) 1.2 % 11/02/22 23:14 Neut # (Auto) 3.27 10^3/uL (1.8-7.7) 11/02/22 23:14 Lymph # (Auto) 1.7 10^3/uL (0.8-4.8) 11/02/22 23:14 Ashley # (Auto) 0.7 10^3/uL (0.2-0.9) 11/02/22 23:14 Eos # (Auto) 0.2 10^3/uL (0.0-0.8) 11/02/22 23:14 Baso # (Auto) 0.1 10^3/uL (0.0-0.1) 11/02/22 23:14 Nucleated RBC % (auto) 0 % 11/02/22 23:14 Nucleated RBCs # 0.0 /100WBC 11/02/22 23:14 PT 11.70 SECONDS (12.1-14.9) L 11/02/22 23:30 INR 0.84 (0.8-1.2) 11/02/22 23:30 APTT 25.0 SECONDS (23.9-36.7) 11/02/22 23:30 Sodium 138 mmol/L (136-145) 11/02/22 23:14 Potassium 3.8 mmol/L (3.5-5.1) 11/02/22 23:14 Chloride 103 mmol/L (98-107) 11/02/22 23:14 Carbon Dioxide 23 mmol/L (22-29) 11/02/22 23:14 Anion Gap 15.8 (5-19) 11/02/22 23:14 BUN 12 mg/dL (6-20) 11/02/22 23:14 Creatinine 0.9 mg/dL (0.7-1.2) 11/02/22 23:14 GFR Calculation 87.9 mL/min (90-130) L 11/02/22 23:14 Glucose 77 mg/dL (65-115) 11/02/22 23:14 POC Glucose 109 mg/dL (70-110) 11/03/22 00:27 Calculated Osmolality 285 mOsm/kg (285-295) 11/02/22 23:14 Calcium 9.2 mg/dL (8.5-10.5) 11/02/22 23:14 Total Bilirubin 0.2 mg/dL (0.15-1.2) 11/02/22 23:14 AST 14 U/L (0-40) 11/02/22 23:14 ALT 20 U/L (0-41) 11/02/22 23:14 Alkaline Phosphatase 118 U/L (40-130) 11/02/22 23:14 Troponin T Baseline 6 ng/L (0-15) 11/02/22 23:14 Total Protein 6.9 g/dL (6.6-8.7) 11/02/22 23:14 Albumin 4.4 g/dL (3.5-5.2) 11/02/22 23:14 Globulin 2.5 g/dL (1.3-4.6) 11/02/22 23:14 Urine Color Straw (Yellow) 11/03/22 00:00 Urine Appearance Clear (CLEAR) 11/03/22 00:00 Urine pH 8 (5-7) H 11/03/22 00:00 Ur Specific [place] 1.015 (1.005-1.030) 11/03/22 00:00 Urine Protein Neg (Negative) 11/03/22 00:00 Urine Glucose (UA) Norm (Normal) 11/03/22 00:00 Urine Ketones Negative (Negative) 11/03/22 00:00 Urine Blood Neg (Negative) 11/03/22 00:00 Urine Nitrate Negative (Negative) 11/03/22 00:00 Urine Bilirubin Neg (Negative) 11/03/22 00:00 Prot Sulfosalicylic Acd Negative (Negative) 11/03/22 00:00 Urine Urobilinogen Norm mg/dL (Negative) 11/03/22 00:00 Ur Leukocyte Esterase Negative (Negative) 11/03/22 00:00 Urine Opiates Screen Negative ng/mL (Negative) 11/03/22 00:00 Ur Barbiturates Screen Negative ng/mL (Negative) 11/03/22 00:00 Ur Phencyclidine Scrn Negative ng/mL (Negative) 11/03/22 00:00 Ur Amphetamines Screen Negative ng/mL (Negative) 11/03/22 00:00 U Benzodiazepines Scrn Negative ng/mL (Negative) 11/03/22 00:00 Urine Cocaine Screen Negative ng/mL (Negative) 11/03/22 00:00 U Marijuana (THC) Screen Negative ng/mL (Negative) 11/03/22 00:00 Ethyl Alcohol < 10 mg/dL (0-10) 11/02/22 23:14 EKG Data EKG 1: I personally reviewed and interpreted this EKG as follows: EKG interpretation date: 11/02/22 EKG interpretation time: 23:13 Interpretation: sinus bianca hr [address] or t wave abnormalities qrs 106 qtc 445 Critical Care Time Critical Care Time: Critical Care Time: Yes Total Critical Care Time: 50 Attestation: The high probability of a clinically significant, sudden or life threatening deterioration of the patient's neuro system(s) required my full and direct attention, intervention and personal management. The critical care time is as shown. This time is in addition to time spent performing any reported procedures but includes the following: [x] Data and vital sign review and interpretation [x] Patient assessment, examination and intervention [x] Documentation [x] Medication orders and management Discharge Plan Discharge Patient Disposition: Admitted As Inpatient Admit Provider: Promise Jerry Clinical Impression: Cerebrovascular accident Condition: Stable Coding Level of Care Code ED Hose Mender for Zamzamg Kylee
[2022-11-02] MEDS: labetalol 5 mg/mL SDV 20mL 10 MG IVP (23:28)
--- NOTE | 2022-11-02 23:36 | CTR_ITS ---
PROCEDURE INFORMATION: Exam: CTA Head With Contrast, Arteriography Exam date and time: 11/03/2022 12:37 AM Age: 52 years old Clinical indication: Stroke-like symptoms; RT upper extremity and RT lower extremity weakness; Additional info: Stroke like symptoms right side deficit TECHNIQUE: Imaging protocol: Computed tomographic angiography of the head with contrast. Exam focused on the arteries. 3D rendering (Not supervised by radiologist): MIP and/or 3D reconstructed images were created by the technologist. Radiation optimization: All CT scans at this facility use at least one of these dose optimization techniques: automated exposure control; mA and/or kV adjustment per patient size (includes targeted exams where dose is matched to clinical indication); or iterative reconstruction. Contrast material: OMNI 350; Contrast volume: 100 ml; Contrast route: INTRAVENOUS (IV); REPORTING DATA: Count of CT and Cardiac NM exams in prior 12 months: This patient has received 6 known CTs and 0 known cardiac nuclear medicine studies in the 12 months prior to the current study. COMPARISON: CT head thrombolytic [id number] 11/02/2022 11:08 PM RADIATION DOSE METRICS: Total DLP (mGy-cm): 586.87 FINDINGS: ANTERIOR CIRCULATION: Right internal carotid artery: Intracranial segment is patent with no significant stenosis. No aneurysm. Right middle cerebral artery: No occlusion or significant stenosis. No aneurysm. Right anterior cerebral artery: No occlusion or significant stenosis. No aneurysm. Left internal carotid artery: Intracranial segment is patent with no significant stenosis. No aneurysm. Left middle cerebral artery: No occlusion or significant stenosis. No aneurysm. Left anterior cerebral artery: No occlusion or significant stenosis. No aneurysm. POSTERIOR CIRCULATION: Right vertebral artery: No occlusion or significant stenosis. No aneurysm. Left vertebral artery: No occlusion or significant stenosis. No aneurysm. Basilar artery: No occlusion or significant stenosis. No aneurysm. Right posterior cerebral artery: No occlusion or significant stenosis. No aneurysm. Left posterior cerebral artery: No occlusion or significant stenosis. No aneurysm. Brain: No definite mass, mass effect, or midline shift. Cerebral ventricles: No ventriculomegaly. Bones/joints: Unremarkable. No acute fracture. Soft tissues: Unremarkable. PROCEDURE INFORMATION: Exam: CTA Neck With Contrast Exam date and time: 11/03/2022 12:37 AM Age: 52 years old Clinical indication: Stroke-like symptoms; RT upper extremity and RT lower extremity weakness; Additional info: Stroke like symptoms right side deficit TECHNIQUE: Imaging protocol: Computed tomographic angiography of the neck with contrast. 3D rendering (Not supervised by radiologist): MIP and/or 3D reconstructed images were created by the technologist. Radiation optimization: All CT scans at this facility use at least one of these dose optimization techniques: automated exposure control; mA and/or kV adjustment per patient size (includes targeted exams where dose is matched to clinical indication); or iterative reconstruction. Contrast material: OMNI 350; Contrast volume: 100 ml; Contrast route: INTRAVENOUS (IV); REPORTING DATA: Count of CT and Cardiac NM exams in prior 12 months: This patient has received 6 known CTs and 0 known cardiac nuclear medicine studies in the 12 months prior to the current study. COMPARISON: NM bone scan whole body* [id number] 04/15/2022 9:43 AM RADIATION DOSE METRICS: Total DLP (mGy-cm): 586.87 FINDINGS: Right common carotid artery: No stenosis. No dissection or occlusion. Right internal carotid artery: No stenosis of the extracranial segment. No dissection or occlusion. Right external carotid artery: No occlusion or stenosis of the origin. Left common carotid artery: No stenosis. No dissection or occlusion. Left internal carotid artery: No stenosis of the extracranial segment. No dissection or occlusion. Left external carotid artery: No occlusion or stenosis of the origin. Right vertebral artery: No stenosis. No dissection or occlusion. Left vertebral artery: No stenosis. No dissection or occlusion. Thyroid: Subcentimeter left thyroid nodule is again present. Soft tissues: Normal. No significant soft tissue swelling. Bones/joints: Anterior cervical spinal fusion changes C4-C6. CT/CT angio headneck* [id number] IMPRESSION: No large vessel stenosis or occlusion. IMPRESSION: No occlusion or significant stenosis. REFERENCES: NASCET CRITERIA. The degree of stenosis in the cervical segment of the internal carotid artery is based on NASCET criteria. Normal is no stenosis. Mild is less than 50% stenosis. Moderate is 50-69% stenosis. Severe is 70% to 99% stenosis. Total occlusion is no detectable patent lumen.
[2022-11-02] MEDS: iohexol 350 mg/mL 500 mL Btl (per mL) IV (23:41)
[2022-11-02 23:48] LABS: Troponin(5th) Baseline 6 ng/L (0-15)
[2022-11-02 23:50] LABS: Alanine Aminotransferase 20 U/L (0-41); Albumin Level 4.4 g/dL (3.5-5.2); Alkaline Phosphatase 118 U/L (40-130); Anion Gap 15.8 (5-19); Aspartate Amino Transferase 14 U/L (0-40); Blood Urea Nitrogen 12 mg/dL (6-20); Calcium 9.2 mg/dL (8.5-10.5); Carbon Dioxide 23 mmol/L (22-29); Chloride 103 mmol/L (98-107); Globulin 2.5 g/dL (1.3-4.6); Glomerular Filtration Rate 87.9 mL/min (90-130); Glucose 77 mg/dL (65-115); Osmolality Calculated 285 mOsm/kg (285-295); Potassium 3.8 mmol/L (3.5-5.1); Sodium 138 mmol/L (136-145); Total Bilirubin 0.2 mg/dL (0.15-1.2); Total Protein 6.9 g/dL (6.6-8.7)
[2022-11-02 23:51] LABS: Alcohol Level < 10 mg/dL (0-10)
[2022-11-02] MEDS: nicardipine 20 MG/200 ML PREMIX 7.5 MG IV (23:52)
[2022-11-02 23:54] LABS: INR 0.84 (0.8-1.2)
[2022-11-03] VITALS (26 sets, daily range): BP systolic 125–158; BP diastolic 79–99; PULSE 53–76; RESP 16–27; TEMP 36.6–37.1; O2SAT 93–100
[2022-11-03] MEDS: labetalol 5 mg/mL SDV 20mL 10 MG IVP (00:07)
[2022-11-03 00:12] LABS: Add Urine Microscopic? NO; Charge for UA Resulting for Rev
[2022-11-03 00:15] LABS: Bilirubin Urine Neg (Negative); Blood Urine Neg (Negative); Glucose Urine UA Norm (Normal); Ketones Urine Negative (Negative); Leukocyte Esterase Urine Negative (Negative); Nitrate Urine Negative (Negative); Protein Urine Neg (Negative); Specific Gravity, Urine 1.015 (1.005-1.030); Sulfosalicylic Acid Urine Negative (Negative); Urine Appearance Clear (CLEAR); Urine Color Straw (Yellow); Urobilinogen Urine Norm (Negative); pH Urine 8 (5-7)
[2022-11-03 00:23] LABS: Amphetamines Screen Urine Negative (Negative); Barbiturates Screen Urine Negative (Negative); Benzodiazepines Screen Urine Negative (Negative); Cocaine Screen Urine Negative (Negative); Opiate Screen Urine Negative (Negative); PCP Screen Urine Negative (Negative); THC Screen Urine Negative (Negative)
[2022-11-03 00:33] LABS: Glucose Point of Care 109 mg/dL (70-110)
--- NOTE | 2022-11-03 01:07 | ECG_ITS ---
[facility] Test Date: 2022-11-03 Pat Name: Jone Boogie Department: Room: Gender: Male Test Technician: : 1970 Requested By: Lucia Bashir Order Number: [id number] Trevor MD: Toni Vazquez M.D. Measurements Intervals Seaman Rate: 66 P: 46 MN: 166 QRS: 14 QRSD: 112 T: 39 QT: 464 QTc: 487 Interpretive Statements SINUS RHYTHM MODERATE INTRAVENTRICULAR CONDUCTION DELAY [110+ ms QRS DURATION] PROLONGED QT INTERVAL Compared to ECG 11/02/2022 23:13:44 Intraventricular conduction delay now present Prolonged QT interval now present Sinus bradycardia no longer present Electronically Signed On 11-03-2022 14:53:11 CDT by Toni Vazquez M.D. [id number]
[2022-11-03] MEDS: sodium chloride 0.9% 50 ML 200 ML IV (01:11)
--- NOTE | 2022-11-03 02:27 | P.HP_ITS ---
Providers/Chief Complaint Admitting Physician: Promise Jerry MD Primary Care Provider: DARSHANA Villa Chief Complaint: CONFUSION History of Present Illness Jone Boogie is a 52 year old male with a past medical history of prostate cancer, hypertension, recent history of chest pain and ventricular fibrillation (patient refers to this as A-fib instead of V-fib) in June 2022 for which she had presented to the emergency room and then spontaneously converted. He was admitted to the hospital where he had further diagnostics with echocardiogram and a stress test which were unremarkable. Since this event patient has been having on and off episodes of chest pain 2-3 times a week precipitated by activities. He is due to get an angiogram week with cardiology. He states that he wore a monitor and storage bin tender for a few days afterwards, however I am unable to see the results in our system. He presented today to the emergency room with abrupt onset of right upper and lower extremity weakness that started at around 9:20 PM this evening. He also had slurred speech, drooling at the right side of mouth, facial deviation. He was brought to the emergency room due to concerns for a stroke and he received tPA. NIHSS was 10 at initial arrival. Patient is seen in the ICU after having received tPA at around midnight. He was hypertensive initially upon arrival and required 30 mg of labetalol to control his pressure prior to administration of tPA. He was also noted to be confused upon initial onset of symptoms and had blurring of vision which has since resolved. Since receiving the tPA his right sided weakness is nearly resolved. His face is currently symmetric. Speech is clear and coherent. His vision is no longer blurred. CT head shows no acute intracranial abnormalities. No large vessel stenosis or occlusion was any seen on CTA of the head and neck. Review of Systems General: Reports: 10 or more systems reviewed and unremarkable except in HPI and below Const: Denies: fever(s), chills or body aches Eyes: Denies: change in vision, blurry vision or photophobia ENMT: Reports: hoarseness; Denies: throat pain, enlarged tonsils, odynophagia or nasal congestion Card: Denies: chest pain, palpitations, irregular heart rhythm, edema, swelling of feet/ankles, lightheadedness, pre-syncope, dyspnea on exertion or orthopnea Resp: Denies: dyspnea, productive cough, non-productive cough, wheezing, stridor, pain on inspiration, change in phlegm color, hemoptysis or chest congestion GI: Denies: abdominal pain, nausea, vomiting, hematemesis, coffee ground emesis, dysphagia, heartburn, diarrhea, constipation, GI cramping, change in stool character, hematochezia or melena : Denies: flank pain, dysuria, urinary frequency, urinary urgency, urinary hesitancy or hematuria Musc: Denies: neck pain, back pain, extremity pain, joint swelling, joint warmth or deformity Neuro: Denies: headache(s), numbness in extremities, weakness in extremities, sensory changes, difficulty walking, frequent falls, dizziness, vertigo, behavioral changes, Slurred speech present or seizure-like activity Psych: Denies: anxiety, depression, suicidal ideation or homicidal ideation Endo: Denies: polyuria, polydipsia, tired all the time, cold intolerance or hot flashes Greg/Lymph: Denies: easy bruising or easy bleeding Medications/Allergies Home Medications Medication Instructions Recorded Confirmed Last Taken Type budesonide-formoterol HFA 80 2 puff inhalation BID PRN unknown 02/10/22 10/13/22 Unknown History mcg-4.5 mcg/actuation aerosol inhaler (Symbicort) prochlorperazine maleate 10 mg 10 mg PO Q4H PRN Mild Nausea #30 03/03/22 10/13/22 Unknown Rx tablet (Compazine) tabs albuterol sulfate 90 mcg/actuation 1 inh inhalation QID PRN Shortness 03/31/22 10/13/22 Unknown History breath activated powder inhaler Of Breath tamsulosin 0.4 mg capsule 0.4 mg PO BEDTIME #30 caps 05/05/22 10/13/22 Unknown Rx oxycodone-acetaminophen 5 mg-325 1 - 2 tab PO .Q4-6H PRN pain 30 06/01/22 10/13/22 Unknown Rx mg tablet (Percocet) days #90 tabs bicalutamide 50 mg tablet 50 mg PO QAM 06/29/22 10/13/22 Unknown History naloxone 4 mg/actuation nasal 1 spray intranasal DIRECTED 06/29/22 10/13/22 Unknown History spray (Narcan) atorvastatin 40 mg tablet 20 mg PO BEDTIME #30 tabs 06/30/22 09/13/22 Unknown Rx nitroglycerin 0.4 mg sublingual 0.4 mg sublingual Q5M PRN chest 07/07/22 10/13/22 Unknown Rx tablet (Nitrostat) pain #10 tabs fluoxetine 40 mg capsule 80 mg PO DAILY 30 days #60 caps 08/16/22 10/13/22 Unknown Rx lorazepam 1 mg tablet 0.5 - 1 mg PO Q6H PRN Severe 08/16/22 10/13/22 Unknown Rx Nausea #30 tabs metoprolol tartrate 25 mg tablet 25 mg PO BID 30 days #60 tabs 08/30/22 10/13/22 Unknown Rx aspirin 81 mg capsule 81 mg PO DAILY 09/13/22 10/13/22 Unknown History Allergies Allergy/AdvReac Type Severity Reaction Status Date / Time No Known Allergies Allergy Verified 10/13/22 15:51 PFSH Acute PFSH: Medical History Adenocarcinoma of prostate Afib GERD (gastroesophageal reflux disease) Metastatic adenocarcinoma to prostate Psychiatric care Pulmonary nodules Testalgia Surgical History H/O esophagogastroduodenoscopy (06/23/21) mild gastritis H/O neck surgery for trauma Status post colonoscopy (~06/23/21) normal Status post laparoscopic cholecystectomy Family History Father , AT AGE 50'S Lung disease Mother Lung disease COPD Social History Smoking and tobacco status: never smoked Alcohol intake: never Substance/Drug Use: never Adopted: No Lives independently: Yes Household members: spouse Marital status: Current occupational status: unemployed Vitals/I&O/Wt Last Vital Signs Temp 98.3 F 11/02/22 23:09 Pulse 71 11/03/22 01:35 Resp 27 H 11/03/22 01:35 BP 137/89 11/03/22 01:35 Pulse Ox 99 11/03/22 01:20 O2 Del Method Room Air 11/03/22 01:20 11/02/22 11/02/22 11/03/22 14:59 22:59 06:59 Intake Total 10.00 / 10.00 Balance 10.00 / 10.00 Weight last 48 hrs Weight 90.718 kg Physical Exam Narrative: General: No acute distress, AO x3 HEENT: PERRLA, pupils bilaterally equal and reactive, pallors not present Chest: Normal vesicular breath sounds, no added sounds, equal good air entry bilaterally CVS: S1-S2 regular, no murmurs, no tachycardia, no gallops, no rubs Abdomen: Soft, nontender, no organomegaly, bowel sounds present Neuro: No focal deficits, no facial deformity, AO x3, power 5/5 in all limbs Data 11/03/22 05:07 11/03/22 01:59 Other data: Radiology Impressions Chest X-Ray 11/02/22 23:06 IMPRESSION: No acute findings. Head CT 11/02/22 23:07 IMPRESSION: No acute intracranial abnormality. ASSESSMENT: ASPECTS ([place] Stroke Program Early CT Score) is 10. Head/Neck CTA 11/02/22 23:36 IMPRESSION: No large vessel stenosis or occlusion. IMPRESSION: No occlusion or significant stenosis. REFERENCES: NASCET CRITERIA. The degree of stenosis in the cervical segment of the internal carotid artery is based on NASCET criteria. Normal is no stenosis. Mild is less than 50% stenosis. Moderate is 50-69% stenosis. Severe is 70% to 99% stenosis. Total occlusion is no detectable patent lumen. Laboratory Results WBC 6.7 10^3/uL (4.0-10.0) 11/03/22 05:07 RBC 4.62 10^6/uL (4.1-5.3) 11/03/22 05:07 Hgb 13.9 g/dL (11.7-16.6) 11/03/22 05:07 Hct 40.9 % (42.0-52.0) L 11/03/22 05:07 MCV 88.5 fl (80-94) 11/03/22 05:07 MCH 30.1 pg (28.0-34.0) 11/03/22 05:07 MCHC 34.0 g/dL (30.0-36.0) 11/03/22 05:07 RDW 12.0 % (12.1-15.1) L 11/03/22 05:07 Plt Count 293 10^3/cmm (130-400) 11/03/22 05:07 MPV 10.0 fL (7.4-10.4) 11/03/22 05:07 Neut % (Auto) 65.7 % 11/03/22 05:07 Lymph % (Auto) 23.0 % 11/03/22 05:07 [place] % (Auto) 8.5 % 11/03/22 05:07 Eos % (Auto) 1.3 % 11/03/22 05:07 Baso % (Auto) 1.2 % 11/03/22 05:07 Neut # (Auto) 4.43 10^3/uL (1.8-7.7) 11/03/22 05:07 Lymph # (Auto) 1.6 10^3/uL (0.8-4.8) 11/03/22 05:07 [place] # (Auto) 0.6 10^3/uL (0.2-0.9) 11/03/22 05:07 Eos # (Auto) 0.1 10^3/uL (0.0-0.8) 11/03/22 05:07 Baso # (Auto) 0.1 10^3/uL (0.0-0.1) 11/03/22 05:07 Nucleated RBC % (auto) 0 % 11/03/22 05:07 Nucleated RBCs # 0.0 /100WBC 11/03/22 05:07 PT 11.70 SECONDS (12.1-14.9) L 11/02/22 23:30 INR 0.84 (0.8-1.2) 11/02/22 23:30 APTT 25.0 SECONDS (23.9-36.7) 11/02/22 23:30 Sodium 137 mmol/L (136-145) 11/03/22 01:59 Potassium 3.4 mmol/L (3.5-5.1) L 11/03/22 01:59 Chloride 103 mmol/L (98-107) 11/03/22 01:59 Carbon Dioxide 18 mmol/L (22-29) L 11/03/22 01:59 Anion Gap 19.4 (5-19) H 11/03/22 01:59 BUN 11 mg/dL (6-20) 11/03/22 01:59 Creatinine 0.9 mg/dL (0.7-1.2) 11/03/22 01:59 GFR Calculation 87.9 mL/min (90-130) L 11/03/22 01:59 Glucose 96 mg/dL (65-115) 11/03/22 01:59 POC Glucose 109 mg/dL (70-110) 11/03/22 00:27 Estimat Average Glucose 111 11/03/22 01:59 Hemoglobin A1c 5.5 % (4.0-6.0) 11/03/22 01:59 Calculated Osmolality 283 mOsm/kg (285-295) L 11/03/22 01:59 Calcium 9.2 mg/dL (8.5-10.5) 11/03/22 01:59 Total Bilirubin 0.2 mg/dL (0.15-1.2) 11/02/22 23:14 AST 14 U/L (0-40) 11/02/22 23:14 ALT 20 U/L (0-41) 11/02/22 23:14 Alkaline Phosphatase 118 U/L (40-130) 11/02/22 23:14 Troponin T Baseline 6 ng/L (0-15) 11/02/22 23:14 Troponin T 120 Minute 6.33 ng/L (0-15) 11/03/22 01:59 Delta Troponin T 0.33 ABS# (0-10) 11/03/22 01:59 Troponin T Hi Sens 6Hr 6.00 ng/L (0-15) 11/03/22 05:07 Total Protein 6.9 g/dL (6.6-8.7) 11/02/22 23:14 Albumin 4.4 g/dL (3.5-5.2) 11/02/22 23:14 Globulin 2.5 g/dL (1.3-4.6) 11/02/22 23:14 Triglycerides 336 mg/dL (0-150) H 11/03/22 01:59 Cholesterol 215 mg/dL (0-200) H 11/03/22 01:59 LDL Cholesterol, Calc 100 mg/dL (50-129) 11/03/22 01:59 HDL Cholesterol 48 mg/dL (60-100) L 11/03/22 01:59 LDL/HDL Ratio 2.08 RATIO (0.00-3.22) 11/03/22 01:59 Cholesterol/HDL Ratio 4.48 mg/dL (1.0-5.00) 11/03/22 01:59 Urine Color Straw (Yellow) 11/03/22 00:00 Urine Appearance Clear (CLEAR) 11/03/22 00:00 Urine pH 8 (5-7) H 11/03/22 00:00 Ur Specific [place] 1.015 (1.005-1.030) 11/03/22 00:00 Urine Protein Neg (Negative) 11/03/22 00:00 Urine Glucose (UA) Norm (Normal) 11/03/22 00:00 Urine Ketones Negative (Negative) 11/03/22 00:00 Urine Blood Neg (Negative) 11/03/22 00:00 Urine Nitrate Negative (Negative) 11/03/22 00:00 Urine Bilirubin Neg (Negative) 11/03/22 00:00 Prot Sulfosalicylic Acd Negative (Negative) 11/03/22 00:00 Urine Urobilinogen Norm mg/dL (Negative) 11/03/22 00:00 Ur Leukocyte Esterase Negative (Negative) 11/03/22 00:00 Urine Opiates Screen Negative ng/mL (Negative) 11/03/22 00:00 Ur Barbiturates Screen Negative ng/mL (Negative) 11/03/22 00:00 Ur Phencyclidine Scrn Negative ng/mL (Negative) 11/03/22 00:00 Ur Amphetamines Screen Negative ng/mL (Negative) 11/03/22 00:00 U Benzodiazepines Scrn Negative ng/mL (Negative) 11/03/22 00:00 Urine Cocaine Screen Negative ng/mL (Negative) 11/03/22 00:00 U Marijuana (THC) Screen Negative ng/mL (Negative) 11/03/22 00:00 Ethyl Alcohol < 10 mg/dL (0-10) 11/02/22 23:14 A&P Assessment and plan (1) Cerebrovascular accident: (2) Chest pain: Plan Patient presenting to the hospital today with chief complaints of sudden onset right-sided weakness, slurred speech and abnormal vision. NIHSS 10 at presentation Status post receiving tPA at 2357 on 11/02/2022. Currently his symptoms are much improved at the time of my assessment. His right-sided weakness is nearly resolved, face is symmetric. No significant motor deficits noticeable at this time. CT head without acute intracranial abnormality, CTA of the head and neck without any significant occlusion. Admit to ICU for post tPA monitoring Patient was initially hypertensive upon arrival and required 30 mg of IV labetalol to bring his blood pressure under control. A Cardene drip was subsequently ordered, however has not been continued as systolics are currently ranging between 120 to 130 mmHg. Goal SBP currently to be less than 185/110 We will start aspirin 24 hours after tPA administration And Lipitor 20 mg at bedtime Check CT head 24 hours after tPA Monitor closely on telemetry. Patient has a history of what appeared to be a ventricular arrhythmia in June 2022, for which he presented to the emergency room. Patient refers to this as A-fib and tells me that he was cardioverted, however review of cardiology notes as outpatient shows that patient spontaneously converted back into a sinus rhythm. Patient states that he wore a Holter monitor for 4 to 5 days afterwards, I am unable to see results of this in the system. We will monitor him closely on telemetry for any signs of intermittent atrial fibrillation which may be a potential contributor to his stroke and may require subsequent anticoagulation. He has been describing intermittent chest pressure for several weeks, he is due to get an angiogram next week. Previously myocardial perfusion imaging and echocardiogram were unremarkable from June 2022. States that he experienced chest pain as recently as this afternoon. EKG currently shows a normal sinus rhythm without any acute ST-T wave changes. Troponin trend today is at 6-->6--> 6, low concern for ACS. Check lipid panel and HbA1c for risk stratification. Neurology consult Attestations Medical Necessity Statement*: Greater than 2 midnight admission is anticipated for acute CVA, post tPA monitoring. Coding Level of Care Code Acute Code for [facility] Diagnoses Cerebrovascular accident I63.9 Chest pain R07.9
[2022-11-03 02:34] LABS: Troponin 5 2HR 6.33 ng/L (0-15)
[2022-11-03 02:35] LABS: Troponin 5 2HR Delta 0.33 ABS# (0-10)
[2022-11-03] MEDS: atorvastatin 40 mg Tablet 20 MG PO (03:02)
--- NOTE | 2022-11-03 03:57 | PC.NURSE ---
Patient's initial NIH on unit was 3 with defects in right side facial droop, right side sensory defect in foot sensation, blurry vision in right eye reported by patient. at bedside. Patient is AOx4 and cooperative with staff. Swallow study administered for PO meds and completed well by patient.
--- NOTE | 2022-11-03 04:52 | PC.NURSE ---
Patient exhibits only slight right sided facial droop as of 399. Patient now denies any chest pain and is resting comfortably.
--- NOTE | 2022-11-03 05:07 | ECG_ITS ---
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 Measurements Intervals Bath Rate: 59 P: 48 NC: 176 QRS: 28 QRSD: 105 T: 48 QT: 455 QTc: 452 Interpretive Statements SINUS BRADYCARDIA Compared to ECG 11/03/2022 02:50:47 Sinus rhythm no longer present Prolonged QT interval no longer present Electronically Signed On 11-03-2022 14:53:26 CDT by Toni Vazquez M.D. [email or web address] Networktrinity health system [email or web address] Health Systems/store/[id number]
[2022-11-03 05:27] LABS: Basophils # 0.1 10^3/uL (0.0-0.1); Basophils % 1.2 %; Eosinophils # 0.1 10^3/uL (0.0-0.8); Eosinophils % 1.3 %; Hematocrit 40.9 % (42.0-52.0); Hemoglobin 13.9 g/dL (11.7-16.6); Lymphocytes # 1.6 10^3/uL (0.8-4.8); Mean Corpuscular Hemoglobin 30.1 pg (28.0-34.0); Mean Corpuscular Volume 88.5 fl (80-94); Monocytes # 0.6 10^3/uL (0.2-0.9); Monocytes % 8.5 %; Neutrophils # 4.43 10^3/uL (1.8-7.7); Neutrophils % 65.7 %; Nucleated Red Blood Cells % 0 %; Platelet Count 293 10^3/cmm (130-400); Red Blood Count 4.62 10^6/uL (4.1-5.3); White Blood Count 6.7 10^3/uL (4.0-10.0)
[2022-11-03 05:35] LABS: Anion Gap 19.4 (5-19); Blood Urea Nitrogen 11 mg/dL (6-20); Calcium 9.2 mg/dL (8.5-10.5); Carbon Dioxide 18 mmol/L (22-29); Chloride 103 mmol/L (98-107); Chol HDL Ratio 4.48 mg/dL (1.0-5.00); Cholesterol 215 mg/dL (0-200); Glomerular Filtration Rate 87.9 mL/min (90-130); Glucose 96 mg/dL (65-115); HDL Cholesterol 48 mg/dL (60-100); LDL Cholesterol Calculated 100 mg/dL (50-129); LDL HDL Ratio 2.08 RATIO (0.00-3.22); Osmolality Calculated 283 mOsm/kg (285-295); Potassium 3.4 mmol/L (3.5-5.1); Sodium 137 mmol/L (136-145); Triglycerides 336 mg/dL (0-150)
[2022-11-03 06:10] LABS: Estmated Average Glucose 111; Hemoglobin A1C 5.5 % (4.0-6.0)
[2022-11-03 06:20] LABS: Troponin 5 6HR Delta 0 ng/L (0-12)
--- NOTE | 2022-11-03 07:43 | PM.CONSULT ---
Providers/Reason For Consult Consulting Physician/Specialty*: nancy/er Reason for Consult*: Acute stroke Attending Physician: Devaughn Rodrigues MD Primary Care Provider: DARSHANA Villa History of Present Illness History of Present Illness Jone Boogie is a 52 year old male who came by EMS for concern of stroke. He was seen by Dr. Bashir. Patient's daughter said that he had been complaining of chest pain and his blood pressure was up and that he had been a little confused throughout the day. He had witnessed onset of severe change in neurologic status at 2140 with inability to speak in weakness on the right side. He presented at 2307 brought by [facility] team and was immediately evaluated for tPA by Dr. Bashir at his NIH stroke scale score was 9 and he was not on anticoagulants but unfortunately his blood pressure was so high that it took almost 30 minutes to get his blood pressure down enough to initiate tPA. I talked with Dr. Bashir. He was admitted to Dr. Jerry. Nursing described a normal neurologic exam this morning. Review of Systems Const: Denies: fever(s), change in weight (He has had hypertension in the past and bradycardia) or fatigue Eyes: Denies: change in vision, blurry vision, blind spots, photophobia, eye discomfort, seeing flashes or other (Glaucoma) ENMT: Denies: odynophagia, hoarseness, change in hearing, tinnitus, sinus pain or other (Loss of taste/smell) Card: Reports: palpitations (He frequently has palpitations) and irregular heart rhythm (He had to be shocked for V-fib in June); Denies: chest pain, syncope or other (Calf cramps) Resp: Denies: dyspnea, non-productive cough, wheezing or hemoptysis GI: Denies: abdominal pain, nausea, heartburn, diarrhea, constipation or hematochezia : Denies: urinary frequency or urinary incontinence Musc: Denies: neck pain, muscle weakness or other (Muscle pain) Skin/Breast: Denies: rash, new lesions or breast mass Neuro: Reports: other (Sleep Apnea); Denies: headache(s), numbness in extremities, weakness in extremities, sensory changes, difficulty walking, Slurred speech present or seizure-like activity Psych: Denies: depression, irritability, memory loss, difficulty concentrating or other (Personality changes) Endo: Denies: polyuria, polydipsia, excessive sweating or change in body appearance Greg/Lymph: Denies: easy bruising, easy bleeding or enlarged lymph nodes Medications/Allergies Home Medications Medication Instructions Recorded Confirmed Last Taken Type prochlorperazine maleate 10 mg 10 mg PO Q4H PRN Mild Nausea #30 03/03/22 11/03/22 Unknown Rx tablet (Compazine) tabs tamsulosin 0.4 mg capsule 0.4 mg PO BEDTIME #30 caps 05/05/22 11/03/22 Unknown Rx oxycodone-acetaminophen 5 mg-325 1 - 2 tab PO .Q4-6H PRN pain 30 06/01/22 11/03/22 Unknown Rx mg tablet (Percocet) days #90 tabs bicalutamide 50 mg tablet 50 mg PO QAM 06/29/22 11/03/22 Unknown History naloxone 4 mg/actuation nasal 1 spray intranasal DIRECTED 06/29/22 11/03/22 Unknown History spray (Narcan) atorvastatin 40 mg tablet 20 mg PO BEDTIME #30 tabs 06/30/22 11/03/22 Unknown Rx nitroglycerin 0.4 mg sublingual 0.4 mg sublingual Q5M PRN chest 07/07/22 11/03/22 Unknown Rx tablet (Nitrostat) pain #10 tabs fluoxetine 40 mg capsule 80 mg PO DAILY 30 days #60 caps 08/16/22 11/03/22 Unknown Rx lorazepam 1 mg tablet 0.5 - 1 mg PO Q6H PRN Severe 08/16/22 11/03/22 Unknown Rx Nausea #30 tabs metoprolol tartrate 25 mg tablet 25 mg PO BID 30 days #60 tabs 08/30/22 11/03/22 Unknown Rx aspirin 81 mg capsule 81 mg PO DAILY 09/13/22 11/03/22 Unknown History trazodone 50 mg tablet 50 mg PO BEDTIME PRN Sleep 11/03/22 11/03/22 Unknown History Allergies Allergy/AdvReac Type Severity Reaction Status Date / Time No Known Allergies Allergy Verified 11/03/22 09:51 Current Medications Generic Name Dose Route Start Last Admin Trade Name Freq PRN Reason Stop Dose Admin Atorvastatin Calcium 20 mg 11/03/22 02:30 11/03/22 03:02 Atorvastatin 40 Mg Tablet PO 20 mg BEDTIME TIFFANY Administration Sodium Chloride 50 mls @ 200 mls/hr 11/02/22 23:06 11/03/22 01:11 Sodium Chloride 0.9% IV 200 mls/hr .Q15M PRN Administration See dose instructions Nicardipine/Sodium Chloride 20 mg in 200 mls @ 0 mls/hr 11/02/22 23:45 11/03/22 01:16 Cardene IV 0 mg/hr .Q0M TIFFANY 0 mls/hr Titration Protocol Per Protocol PFSH Acute PFSH: Medical History Adenocarcinoma of prostate Afib GERD (gastroesophageal reflux disease) Metastatic adenocarcinoma to prostate Psychiatric care Pulmonary nodules Testalgia Surgical History H/O esophagogastroduodenoscopy (06/23/21) mild gastritis H/O neck surgery for trauma Status post colonoscopy (~06/23/21) normal Status post laparoscopic cholecystectomy Family History Father , AT AGE 50'S Lung disease Mother Lung disease COPD Social History Smoking and tobacco status: never smoked Alcohol intake: never Substance/Drug Use: never Adopted: No Lives independently: Yes Household members: spouse Marital status: Current occupational status: unemployed Vitals/I&O/Wt Last Vital Signs Temp 98.3 F 11/03/22 06:24 Pulse 62 11/03/22 06:24 Resp 20 H 11/03/22 06:24 BP 132/82 11/03/22 06:24 Pulse Ox 93 11/03/22 06:24 O2 Del Method Room Air 11/03/22 04:00 11/02/22 11/03/22 11/03/22 22:59 06:59 14:59 Intake Total 10.00 / 10.00 Output Total 325 / 325 Balance -315.00 / -315.00 Weight last 48 hrs Weight 200 lb Physical Exam Narrative: GENERAL: The patient was well-nourished with a healthy appearance and appropriately groomed. His blood pressure is 130/70 and he is in normal sinus rhythm MENTAL STATUS: Orientation was full to 10 of 10 questions of orientation. Speech was fluent without word hesitation. No difficulty following a complex command. The affect was euthymic. CRANIAL NERVES: Visual acuity was intact to reading small print. Visual don[place]ue were full to confrontation, direct and consensual. Extraocular movements were full without nystagmus. Both slow pursuit and saccadic eye movements were normal. PERRLA. Face was symmetric at rest and with grimace. Facial sensation was intact in all three distributions of the fifth cranial nerve bilaterally to touch. Hearing was intact to soft spoken voice.. Tongue and palate were midline at rest and with protrusion of the tongue and elevation of the palate. Shoulders were symmetric at rest and with shoulder shrug. MOTOR: No drift. He moves all 4 extremities with normal strength. Normal bulk and tone SENSATION: Pin, touch intact in the four extremities distally. COORDINATION: [id number], osfs-[id number] and rapid alternating movements were performed smoothly without evidence of tremor or ataxia. DEEP TENDON REFLEXES: 2/4 throughout. GAIT: Not tested HEENT: Normocephalic without dysmorphic features. Conjunctivae were not injected and sclerae were nonicteric. NECK: Carotid upstroke was strong bilaterally without bruits. The thyroid was not enlarged and there were no palpable lymph nodes. CHEST: Clear to auscultation. CARDIOVASCULAR: The heart sounds were normal without murmur or gallop. Regular rate and rhythm. EXTREMITIES: There was no edema or cyanosis. The skin was unremarkable. The spine exhibited normal thoracic kyphosis and normal lumbar lordosis without deformities. Urinary Catheter Management: Jim: Cath Placed During This Visit: yes, but has since been removed by the nurse Reason for Continuing Indwelling Catheter: Decision to DC Catheter Urinary Catheter Date of Insertion: 11/02/22 Urinary Catheter Time of Insertion: 23:30 Date Urinary Catheter Removed: 11/03/22 Time Urinary Catheter Discontinued: 06:42 Data 11/03/22 05:07 11/03/22 01:59 A&P Assessment and plan (1) Left acute arterial ischemic stroke, MCA (middle cerebral artery): Acute left middle cerebral artery stroke aborted by tPA administered within 2 hours of onset of symptoms. His main risk factor is hypertension. He describes palpitations and intermittent atrial fibrillation is a concern. Echocardiogram has been ordered for this hospitalization. He needs to have prolonged cardiac monitoring for at least 30 days. I reviewed his notes from farida jacques because she told the patient that he had atrial fibrillation. She documents that he had a Holter monitor but it must of been done at another institution as there is no report in our hospital charts. She referred him to Dr. Redmond for SVT. In any case we will order a 30-day monitor and loop recorder if necessary. The patient clearly had a left middle cerebral artery transient episode of ischemia that was aborted by tPA. I carefully went over risk factors for stroke and composed an individual risk profile for him. I reviewed multiple pages from the stroke book and gave him a chance and gave his a chance to ask questions. They were very much interested in everything that they can do to prevent stroke. I would like to see him back in my office in a month or so just to make sure that all bases have been covered. He can probably go home tomorrow. Many thanks to Dr. Bashir for his rapid attention to this patient and rapid treatment of his hypertension followed by tPA treatment. Consult Attestations Medical Necessity Statement: Acute middle cerebral artery stroke treated with tPA Time Spent in Patient Care: 60 Coding Level of Care Code Acute Code for g Fwd Diagnoses Left acute arterial ischemic stroke, MCA (middle cerebral artery) I63.512
--- NOTE | 2022-11-03 08:28 | PC.OT ---
OT EVALUATION HELD THIS DATE DUE TO TPA ADMINISTRATION. OT EVALUATION TO BE ATTEMPTED AGAIN TOMORROW.
[2022-11-03] MEDS: metoprolol tartrate 25 mg Tablet PO ×2 (08:36→19:14)
[2022-11-03] MEDS: fluoxetine 20 mg Capsule 80 MG PO (08:37)
[2022-11-03] MEDS: acetaminophen 325 mg Tablet 650 MG PO (12:24)
[2022-11-03] MEDS: atorvastatin 40 mg Tablet 80 MG PO (20:51)
[2022-11-03] MEDS: tamsulosin 0.4 mg Capsule PO (20:51)
[2022-11-04] VITALS (57 sets, daily range): BP systolic 98–162; BP diastolic 58–87; PULSE 47–83; RESP 11–24; TEMP 36.7–36.8; O2SAT 92–98
[2022-11-04 03:44] LABS: Basophils % 0.7 %; Eosinophils # 0.1 10^3/uL (0.0-0.8); Eosinophils % 2.6 %; Hematocrit 37.8 % (42.0-52.0); Hemoglobin 12.9 g/dL (11.7-16.6); Lymphocytes # 1.4 10^3/uL (0.8-4.8); Lymphocytes % 25.1 %; Mean Corpuscular HGB Conc 34.1 g/dL (30.0-36.0); Mean Corpuscular Hemoglobin 30.6 pg (28.0-34.0); Mean Corpuscular Volume 89.8 fl (80-94); Mean Platelet Volume 8.5 fL (7.4-10.4); Monocytes # 0.6 10^3/uL (0.2-0.9); Monocytes % 10.4 %; Neutrophils # 3.32 10^3/uL (1.8-7.7); Neutrophils % 60.8 %; Nucleated Red Blood Cells % 0 %; Platelet Count 206 10^3/cmm (130-400); Red Blood Count 4.21 10^6/uL (4.1-5.3); Red Cell Distribution Width 12.1 % (12.1-15.1); White Blood Count 5.5 10^3/uL (4.0-10.0)
[2022-11-04 04:03] LABS: Chol HDL Ratio 4.45 mg/dL (1.0-5.00); Cholesterol 187 mg/dL (0-200); HDL Cholesterol 42 mg/dL (60-100); LDL Cholesterol Calculated 91 mg/dL (50-129); LDL HDL Ratio 2.17 RATIO (0.00-3.22); Triglycerides 271 mg/dL (0-150)
[2022-11-04 04:04] LABS: Estmated Average Glucose 105; Hemoglobin A1C 5.3 % (4.0-6.0)
[2022-11-04 04:05] LABS: Alanine Aminotransferase 17 U/L (0-41); Albumin Level 3.9 g/dL (3.5-5.2); Alkaline Phosphatase 105 U/L (40-130); Anion Gap 13.1 (5-19); Aspartate Amino Transferase 13 U/L (0-40); Blood Urea Nitrogen 15 mg/dL (6-20); Carbon Dioxide 26 mmol/L (22-29); Chloride 102 mmol/L (98-107); Globulin 2.2 g/dL (1.3-4.6); Glomerular Filtration Rate 77.9 mL/min (90-130); Glucose 94 mg/dL (65-115); Osmolality Calculated 285 mOsm/kg (285-295); Potassium 4.1 mmol/L (3.5-5.1); Sodium 137 mmol/L (136-145); Total Bilirubin 0.3 mg/dL (0.15-1.2); Total Protein 6.1 g/dL (6.6-8.7)
--- NOTE | 2022-11-04 06:00 | USCV_ITS ---
Jone Boogie Age: 52 Gender: M : 1970 Exam Date: 11/04/2022 00:26 Ordering Phys: Promise Jerry MD Technologist: YAHIR [place] [facility] [place]: RIGHT hemiparesis TIA with Aphasia, now resolved. Never smoked. No DM. Risk Factors: RIGHT hemiparesis TIA with Aphasia, now resolved. Never smoked. No DM. Previous Vascular Surgery: None Right Brachial BP: 116 / 80 Left Brachial BP: / Right Left Velocity (cm/s) Spectral Plaque Velocity (cm/s) Spectral Plaque Syst/Diast Broadening Syst/Diast Broadening 116.40/26.70 None None Prox CCA 134.50/ 18.70 None None 99.30/ 22.40 None None Mid CCA 123.50/ 23.20 None None 69.40/ 22.90 Min Homo Distal CCA 108.10/ 25.40 Min Homo 65.00/ 22.70 Min Homo Prox ICA 60.50 / 22.20 Min Homo 75.40/ 35.00 Min Homo Mid ICA 57.40 / 25.30 Min Homo 70.70/ 35.00 Min Homo Distal ICA 53.60 / 28.00 Min Homo 98.50 Min None ECA 99.20 Min None 0.65 ICA/CCA 0.45 Antegrade Vertebral Antegrade 44.30/ 14.80 cm/s 71.70/ 22.10 cm/s Tri Subclavian Tri 69.20 91.20 CONCLUSIONS Right ICA stenosis <50%. Mild atheromatous plaque right carotid bulb/ICA. Left ICA stenosis <50%. Mild atheromatous plaque left carotid bulb/ICA. Normal antegrade Doppler flow noted in the right vertebral artery. Normal antegrade Doppler flow noted in the left vertebral artery. Jeramy Lemus MD (Electronically Signed) Final Date: 04 November 2022 10:22 S
--- NOTE | 2022-11-04 06:00 | USCV_ITS ---
Jone Boogie Age: 52 Gender: M : 1970 Exam Date: 11/04/2022 00:55 Ordering Phys: Promise Jerry MD Technologist: YAHIR Exam Location: [facility] [place] Indication: RIGHT hemiparesis and Aphasic TIA, now resolved. No history of cardiac intervention per patient. BP: 116 / 80 HR: 54 Rhythm: Sinus Technical Quality: Adequate MEASUREMENTS (Male / Female) Normal Values 2D ECHO LV Diastolic Diameter PLAX 4.4 cm 4.2 - 5.9 / 3.9 - 5.3 cm LV Systolic Diameter PLAX 2.7 cm IVS Diastolic Thickness 1.2 cm 0.6 - 1.0 / 0.6 - 0.9 cm IVS Systolic Thickness 1.8 cm LVPW Diastolic Thickness 1.5 cm 0.6 - 1.0 / 0.6 - 0.9 cm LVPW Systolic Thickness 1.6 cm LVOT Diameter 2.1 cm LV Ejection Fraction 2D Teich 69.3 % LV Ejection Fraction MOD 2C 56.1 % LV Ejection Fraction 2C AL 55.2 % LA Diameter 3.7 cm LA Width 3.3 cm LA Height 5.5 cm RA Width 3.5 cm RA Height 3.7 cm Aorta at Sinotubular Diameter 3.3 cm IVC Diameter 1.3 cm M-MODE Aortic Annulus Diameter 3.5 cm LA Ao Ratio MM 1.1 MV E Point Septal Separation 0.5 cm DOPPLER AV Peak Velocity 134.0 cm/s LVOT Peak Velocity 92.0 cm/s AV Area Cont Eq vti 2.8 cm squared AV Area Cont Eq pk 2.5 cm squared MV Area PHT 3.7 cm squared Mitral E to A Ratio 0.8 MV E' Velocity 36.0 cm/s Mitral E to MV E' Ratio 7.5 Mitral E to LV E' Lateral Ratio 7.1 Mitral E to LV E' Septal Ratio 7.9 TR Peak Velocity 203.0 cm/s TR Peak Gradient 16.5 mmHg TV Peak E Velocity 61.0 cm/s Right Atrial Pressure 5.0 mmHg Pulmonary Artery Systolic Pressu 21.5 mmHg PV Peak Velocity 108.0 cm/s RV Acceleration Time 0.1 s RV Ejection Time 0.4 s RV AcT/ET 0.3 FINDINGS Left Ventricle Normal left ventricular size, systolic function and wall thickness, with no regional wall motion abnormalities. Left ventricular ejection fraction is estimated at 60 %. Normal diastolic function. Right Ventricle Normal right ventricular size and systolic function. Right ventricular systolic pressure 21.5 mmHg. Right Atrium Normal right atrial size. Left Atrium Normal left atrial size. Mitral Valve Structurally normal mitral valve. No mitral valve stenosis. No mitral valve regurgitation. Aortic Valve Structurally normal trileaflet aortic valve. No aortic valve stenosis. No aortic valve regurgitation. Tricuspid Valve Structurally normal tricuspid valve. No tricuspid valve stenosis. No tricuspid valve regurgitation. Pulmonic Valve Structurally normal pulmonic valve. No pulmonary valve stenosis. No significant pulmonary valve regurgitation. Pericardium No pericardial effusion. Aorta Normal size aortic root and proximal ascending aorta. IVC Normal IVC dimension with >50% respiratory change of the inferior vena cava. CONCLUSIONS 1. Normal left ventricular size, systolic function and wall thickness, with no regional wall motion abnormalities. Left ventricular ejection fraction is estimated at 60 %. Normal diastolic function. 2. No significant valvular abnormality. 3. Normal pulmonary artery pressure. 4. No change when compared to study dated 06/29/22. Jennifer Cat MD (Electronically Signed) Final Date: 11 November 2022 11:52 S
--- NOTE | 2022-11-04 09:00 | CTR_ITS ---
PROCEDURE INFORMATION: Exam: CT Head Without Contrast Exam date and time: 11/04/2022 3:50 AM Age: 52 years old Clinical indication: Other: Follow up 24 hour tpa; Additional info: 24 hrs post tpa TECHNIQUE: Imaging protocol: Computed tomography of the head without contrast. Radiation optimization: All CT scans at this facility use at least one of these dose optimization techniques: automated exposure control; mA and/or kV adjustment per patient size (includes targeted exams where dose is matched to clinical indication); or iterative reconstruction. REPORTING DATA: Count of CT and Cardiac NM exams in prior 12 months: This patient has received 8 known CTs and 0 known cardiac nuclear medicine studies in the 12 months prior to the current study. COMPARISON: CT head thrombolytic [id number] 11/02/2022 11:08 PM RADIATION DOSE METRICS: Total DLP (mGy-cm): 1242.38 FINDINGS: Brain: No acute intracranial hemorrhage or mass effect. No definite acute infarct by CT. MRI would be more sensitive/specific for detection, as clinically directed. Cerebral ventricles: Ventricle size is normal for age. Paranasal sinuses: Included paranasal sinuses are essentially clear. Mastoid air cells: Fluid is again seen in the right mastoid air cells, not significantly changed. Bones/joints: No definite acute skull fracture. Soft tissues: No significant acute finding. CT/CT head wo con* [id number] IMPRESSION: 1. No acute intracranial hemorrhage or mass effect. 2. No definite acute infarct by CT, see above. 3. Other findings discussed above.
[2022-11-04] MEDS: metoprolol tartrate 25 mg Tablet PO (09:39)
[2022-11-04] MEDS: fluoxetine 20 mg Capsule 80 MG PO (09:39)
[2022-11-04] MEDS: aspirin 81 mg EC Tablet PO (09:39)
--- NOTE | 2022-11-04 09:55 | P.DS_ITS ---
Discharge Providers Date of Admission: 11/03/22 01:17 Date of Discharge: November 04, 2022 Attending Provider at Admission: Promise Jerry MD Attending Provider at Discharge: Devaughn Rodrigues MD Primary Care Provider: DARSHANA Villa Diagnoses at Discharge Discharge Diagnosis (1) Left acute arterial ischemic stroke, MCA (middle cerebral artery): Status: Acute Reason for Visit Reason for Visit: CONFUSION Brief History: History as per HPI: Jone Boogie is a 52 year old male with a past medical history of prostate cancer, hypertension, recent history of chest pain and ventricular fibrillation (patient refers to this as A-fib instead of V-fib) in June 2022 for which she h ad presented to the emergency room and then spontaneously converted.? He was admitted to the hospital where he had further diagnostics with echocardiogram and a stress test which were unremarkable.? Since this event patient has been having on and off episodes of chest pain 2-3 times a week precipitated by activities.? He is due to get an angiogram week with cardiology.? He states that he wore a property assessment monitor for a few days afterwards, however I am unable to see the results in our system. He presented today to the emergency room with abrupt onset of right upper and lower extremity weakness that started at around 9:20 PM this evening.? He also had slurred speech, drooling at the right side of mouth, facial deviation.? He was brought to the emergency room due to concerns for a stroke and he received tPA.? NIHSS was 10 at initial arrival.? Patient is seen in the ICU after having received tPA at around midnight.? He was hypertensive initially upon arrival and required 30 mg of labetalol to control his pressure prior to administration of tPA.? He was also noted to be confused upon initial onset of symptoms and had blurring of vision which has since resolved.? Since receiving the tPA his right sided weakness is nearly resolved.? His face is currently symmetric.? Speech is clear and coherent.? His vision is no longer blurred. CT head shows no acute intracranial abnormalities.? No large vessel stenosis or occlusion was any seen on CTA of the head and neck. Hospital Course Hospital Course Patient was admitted to the ICU for post tPA care. His hospitalization remained unremarkable. He was seen by PT/OT and speech therapy. Repeat CT scan 24 hours post tPA was done and was found to be stable. He has been discharged in hemodynamically stable condition on baby aspirin, increase dose of statin with advised to follow-up with his primary care provider within next 1 week, neurology within 2 weeks. Patient's current hospitalization with being treated with tPA was discussed in detail with his outpatient rag room supervisor Dr. Redmond as he is due for cardiac angiogram later this month. Physical Exam Narrative: General: No acute distress, AO x3 HEENT: PERRLA, pupils bilaterally equal and reactive, pallors not present Chest: Normal vesicular breath sounds, no added sounds, equal good air entry bilaterally CVS: S1-S2 regular, no murmurs, no tachycardia, no gallops, no rubs Abdomen: Soft, nontender, no organomegaly, bowel sounds present Neuro: No focal deficits, no facial deformity, AO x3, power 5/5 in all limbs Urinary Catheter Management: Jim: Cath Placed During This Visit: yes, but has since been removed by the nurse Reason for Continuing Indwelling Catheter: Decision to DC Catheter Urinary Catheter Date of Insertion: 11/02/22 Urinary Catheter Time of Insertion: 23:30 Date Urinary Catheter Removed: 11/03/22 Time Urinary Catheter Discontinued: 06:42 Discharge Data Studies Completed and Pending Completed Studies During Hospitalization Category Date Time Status CT angio headneck* [id number] Stat Cat Scan 11/02/22 23:[address] head thrombolytic [id number] Stat Cat Scan 11/02/22 23:[address] head wo con* [id number] Routine Cat Scan 11/04/22 09:00 Completed XR chest 1V portable [id number] Stat Exams 11/02/22 23:06 Completed Pending at discharge Category Date Time Status CV carotid duplex BI* [id number] Routine Ultrasound 11/04/22 06:00 Taken CV. echo complete* [id number] Routine Ultrasound 11/04/22 06:00 Taken Radiology Impressions Chest X-Ray 11/02/22 23:06 IMPRESSION: No acute findings. Head/Neck CTA 11/02/22 23:36 IMPRESSION: No large vessel stenosis or occlusion. IMPRESSION: No occlusion or significant stenosis. REFERENCES: NASCET CRITERIA. The degree of stenosis in the cervical segment of the internal carotid artery is based on NASCET criteria. Normal is no stenosis. Mild is less than 50% stenosis. Moderate is 50-69% stenosis. Severe is 70% to 99% stenosis. Total occlusion is no detectable patent lumen. Head CT 11/04/22 09:00 IMPRESSION: 1. No acute intracranial hemorrhage or mass effect. 2. No definite acute infarct by CT, see above. 3. Other findings discussed above. Laboratory Results WBC 5.5 10^3/uL (4.0-10.0) 11/04/22 02:39 RBC 4.21 10^6/uL (4.1-5.3) 11/04/22 02:39 Hgb 12.9 g/dL (11.7-16.6) 11/04/22 02:39 Hct 37.8 % (42.0-52.0) L 11/04/22 02:39 MCV 89.8 fl (80-94) 11/04/22 02:39 MCH 30.6 pg (28.0-34.0) 11/04/22 02:39 MCHC 34.1 g/dL (30.0-36.0) 11/04/22 02:39 RDW 12.1 % (12.1-15.1) 11/04/22 02:39 Plt Count 206 10^3/cmm (130-400) 11/04/22 02:39 MPV 8.5 fL (7.4-10.4) 11/04/22 02:39 Neut % (Auto) 60.8 % 11/04/22 02:39 Lymph % (Auto) 25.1 % 11/04/22 02:39 [place] % (Auto) 10.4 % 11/04/22 02:39 Eos % (Auto) 2.6 % 11/04/22 02:39 Baso % (Auto) 0.7 % 11/04/22 02:39 Neut # (Auto) 3.32 10^3/uL (1.8-7.7) 11/04/22 02:39 Lymph # (Auto) 1.4 10^3/uL (0.8-4.8) 11/04/22 02:39 [place] # (Auto) 0.6 10^3/uL (0.2-0.9) 11/04/22 02:39 Eos # (Auto) 0.1 10^3/uL (0.0-0.8) 11/04/22 02:39 Baso # (Auto) 0.0 10^3/uL (0.0-0.1) 11/04/22 02:39 Nucleated RBC % (auto) 0 % 11/04/22 02:39 Nucleated RBCs # 0.0 /100WBC 11/04/22 02:39 PT 11.70 SECONDS (12.1-14.9) L 11/02/22 23:30 INR 0.84 (0.8-1.2) 11/02/22 23:30 APTT 25.0 SECONDS (23.9-36.7) 11/02/22 23:30 Sodium 137 mmol/L (136-145) 11/04/22 02:39 Potassium 4.1 mmol/L (3.5-5.1) 11/04/22 02:39 Chloride 102 mmol/L (98-107) 11/04/22 02:39 Carbon Dioxide 26 mmol/L (22-29) 11/04/22 02:39 Anion Gap 13.1 (5-19) 11/04/22 02:39 BUN 15 mg/dL (6-20) 11/04/22 02:39 Creatinine 1.0 mg/dL (0.7-1.2) 11/04/22 02:39 GFR Calculation 77.9 mL/min (90-130) L 11/04/22 02:39 Glucose 94 mg/dL (65-115) 11/04/22 02:39 POC Glucose 109 mg/dL (70-110) 11/03/22 00:27 Estimat Average Glucose 105 11/04/22 02:39 Hemoglobin A1c 5.3 % (4.0-6.0) 11/04/22 02:39 Calculated Osmolality 285 mOsm/kg (285-295) 11/04/22 02:39 Calcium 9.0 mg/dL (8.5-10.5) 11/04/22 02:39 Total Bilirubin 0.3 mg/dL (0.15-1.2) 11/04/22 02:39 AST 13 U/L (0-40) 11/04/22 02:39 ALT 17 U/L (0-41) 11/04/22 02:39 Alkaline Phosphatase 105 U/L (40-130) 11/04/22 02:39 Troponin T Baseline 6 ng/L (0-15) 11/02/22 23:14 Troponin T 120 Minute 6.33 ng/L (0-15) 11/03/22 01:59 Delta Troponin T 0.33 ABS# (0-10) 11/03/22 01:59 Troponin T Hi Sens 6Hr 6.00 ng/L (0-15) 11/03/22 05:07 Troponin T Hi Sens 6Hr Delta 0 ng/L (0-12) 11/03/22 05:07 Total Protein 6.1 g/dL (6.6-8.7) L 11/04/22 02:39 Albumin 3.9 g/dL (3.5-5.2) 11/04/22 02:39 Globulin 2.2 g/dL (1.3-4.6) 11/04/22 02:39 Triglycerides 271 mg/dL (0-150) H 11/04/22 02:39 Cholesterol 187 mg/dL (0-200) 11/04/22 02:39 LDL Cholesterol, Calc 91 mg/dL (50-129) 11/04/22 02:39 HDL Cholesterol 42 mg/dL (60-100) L 11/04/22 02:39 LDL/HDL Ratio 2.17 RATIO (0.00-3.22) 11/04/22 02:39 Cholesterol/HDL Ratio 4.45 mg/dL (1.0-5.00) 11/04/22 02:39 Urine Color Straw (Yellow) 11/03/22 00:00 Urine Appearance Clear (CLEAR) 11/03/22 00:00 Urine pH 8 (5-7) H 11/03/22 00:00 Ur Specific [place] 1.015 (1.005-1.030) 11/03/22 00:00 Urine Protein Neg (Negative) 11/03/22 00:00 Urine Glucose (UA) Norm (Normal) 11/03/22 00:00 Urine Ketones Negative (Negative) 11/03/22 00:00 Urine Blood Neg (Negative) 11/03/22 00:00 Urine Nitrate Negative (Negative) 11/03/22 00:00 Urine Bilirubin Neg (Negative) 11/03/22 00:00 Prot Sulfosalicylic Acd Negative (Negative) 11/03/22 00:00 Urine Urobilinogen Norm mg/dL (Negative) 11/03/22 00:00 Ur Leukocyte Esterase Negative (Negative) 11/03/22 00:00 Urine Opiates Screen Negative ng/mL (Negative) 11/03/22 00:00 Ur Barbiturates Screen Negative ng/mL (Negative) 11/03/22 00:00 Ur Phencyclidine Scrn Negative ng/mL (Negative) 11/03/22 00:00 Ur Amphetamines Screen Negative ng/mL (Negative) 11/03/22 00:00 U Benzodiazepines Scrn Negative ng/mL (Negative) 11/03/22 00:00 Urine Cocaine Screen Negative ng/mL (Negative) 11/03/22 00:00 U Marijuana (THC) Screen Negative ng/mL (Negative) 11/03/22 00:00 Ethyl Alcohol < 10 mg/dL (0-10) 11/02/22 23:14 Vitals Last Vital Signs Temp 98.3 F 11/04/22 05:00 Pulse 67 11/04/22 08:00 Resp 16 11/04/22 08:00 BP 116/72 11/04/22 06:20 Pulse Ox 95 11/04/22 08:00 O2 Del Method Room Air 11/04/22 08:00 Discharge Plan Discharge Patient Disposition: Home Condition: Stable Prescriptions: Continued oxycodone-acetaminophen [Percocet] 5-325 mg tablet 1 - 2 tab PO .Q4-6H PRN (Reason: pain) 30 Days Qty: 90 0RF nitroglycerin [Nitrostat] 0.4 mg tablet, sublingual 0.4 mg sublingual Q5M PRN (Reason: chest pain) Qty: 10 0RF Rx Instructions: do not exceed 3 doses per episode fluoxetine 40 mg capsule 80 mg PO DAILY 30 Days Qty: 60 3RF lorazepam 1 mg tablet 0.5 - 1 mg PO Q6H PRN (Reason: Severe Nausea) Qty: 30 3RF metoprolol tartrate 25 mg tablet 25 mg PO BID 30 Days Qty: 60 5RF Compazine 10 mg tablet 10 mg PO Q4H PRN (Reason: Mild Nausea) Qty: 30 3RF tamsulosin 0.4 mg capsule 0.4 mg PO BEDTIME Qty: 30 2RF aspirin 81 mg Capsule 81 mg PO DAILY naloxone [Narcan] 4 mg/actuation spray,non-aerosol 1 spray INTRANASAL DIRECTED Rx Instructions: 1 spray into each nosril every 2-3minutes prn bicalutamide 50 mg tablet 50 mg PO QAM trazodone 50 mg tablet 50 mg PO BEDTIME PRN (Reason: Sleep) Changed atorvastatin 40 mg Tablet 40 mg PO BEDTIME Qty: 30 0RF Discharge Orders: Discharge Order (Routine); Ordered 11/04/22 Ordered By: Devaughn Rodrigues Referrals: Lindy Arana MD [Physician] - 11/24/22 11:15 am Jaleesa Valdez FNP [Primary Care Provider] - 11/10/22 11:00 am (* please note time of appointment change :per clinic will change time of 08:45 to new time of 11:00 am) Discharge Diet: Cardiac Discharge Activity: Resume usual activity and Increase activity as tolerated Patient Instructions: Ischemic Stroke (DC), Ischemic Stroke (GEN), Fall Prev ention (DC), Opioid Safety, Stroke Stoplight Activity Restrictions/Additional Instructions: Continue taking baby aspirin 81 mg daily. Dose of atorvastatin has been increased to 40 mg daily. Please follow-up with neurology/Dr. Arana in 2 weeks. Discharge Attestations Time Spent in Discharge Care*: greater than 30 min Specific Discharge Activities: educating patient, educating and/or supporting family/caregiver, discussing with pcp/other providers, discussing with rn field case manager/social workers/dc planners, documenting/other paperwork and evaluating patient/reviewing data Status at Discharge: Cognitive status at discharge: cognitively intact , Behavioral status at discharge: cooperative , Functional status at discharge: independent ambulation , Overall status at discharge: patient is back to baseline Quality Metrics Clinical Quality Measures [ Cerebrovascular Accident { Contraindication to Antithrombotic: None; antithrombotic prescribed; Contraindication to Anticoagulation: None; anticoagulation prescribed; Contraindication to Statin: None; Statin prescribed; Contraindication to tPA: None; TPA given;}] Coding Level of Care Code 16026 Total time (in minutes) for Discharge: 50 Diagnoses Left acute arterial ischemic stroke, MCA (middle cerebral artery) I63.512
== END 2022-11-04 12:20 | disposition home or self-care (01) | DRG 62 ==
LOC: ER 11-03 01:34 → ICU 11-03 01:46
PROVIDERS: Admitting Provider Student in an Organized Health Care Education/Training Program; Emergency Provider Emergency Medicine; PCP Nurse Practitioner Family; Visit Provider Student in an Organized Health Care Education/Training Program
DX: I63.512 Cerebral infarction due to unspecified occlusion or stenosis of left middle cerebral artery (principal); G81.91 Hemiplegia, unspecified affecting right dominant side; R29.810 Facial weakness; R47.81 Slurred speech; H53.8 Other visual disturbances; R29.710 NIHSS score 10; I10 Essential (primary) hypertension; Z79.891 Long term (current) use of opiate analgesic; Z79.82 Long term (current) use of aspirin; K21.9 Gastro-esophageal reflux disease without esophagitis; Z85.46 Personal history of malignant neoplasm of prostate
CPT/HCPCS: 36415; 36416; 51702; 70450; 70496; 70498; 71045; 80048; 80053; 80061; 80306; 80307; 81003; 82962; 83036; 84484; 85025; 85610; 85730; 92523; 92526; 92610; 93005; 93306; 93880; 96374; 96375; 97161; 97165; 99291; J2997; J3490; Q9967

== ENCOUNTER → 2022-11-10 11:17 | Outpatient (BNVA) | payer MEDICARE, MEDICAID, SELFPAY | PROVIDERS: PCP Nurse Practitioner Family; Visit Provider Nurse Practitioner Family | DX: K62.5 Hemorrhage of anus and rectum (principal); I63.512 Cerebral infarction due to unspecified occlusion or stenosis of left middle cerebral artery | CPT/HCPCS: 85025 ==

== ENCOUNTER → 2022-11-11 08:26 | Outpatient (BNVA) | payer MEDICARE, MEDICAID, SELFPAY | PROVIDERS: PCP Nurse Practitioner Family; Visit Provider Nurse Practitioner Family | DX: K62.5 Hemorrhage of anus and rectum (principal) | CPT/HCPCS: 82270 ==

== ENCOUNTER → 2022-11-24 11:18 | Outpatient (BNVA) | payer MEDICARE, MEDICAID, SELFPAY | PROVIDERS: PCP Nurse Practitioner Family; Referring Provider Student in an Organized Health Care Education/Training Program; Visit Provider Specialist | DX: Z09 Encounter for follow-up examination after completed treatment for conditions other than malignant neoplasm (principal); Z86.73 Personal history of transient ischemic attack (TIA), and cerebral infarction without residual deficits | CPT/HCPCS: G0463 ==

== ENCOUNTER → 2022-12-06 13:26 | Outpatient (BNVA) | payer MEDICARE, MEDICAID, SELFPAY | PROVIDERS: PCP Nurse Practitioner Family; Visit Provider Nurse Practitioner Family | DX: I10 Essential (primary) hypertension (principal); I49.9 Cardiac arrhythmia, unspecified | CPT/HCPCS: 99213 ==

== ENCOUNTER → 2022-12-07 11:42 | Outpatient (BNVA) | payer MEDICARE, MEDICAID, SELFPAY | PROVIDERS: PCP Nurse Practitioner Family; Visit Provider Specialist | DX: R94.31 Abnormal electrocardiogram [ECG] [EKG]; I49.9 Cardiac arrhythmia, unspecified; Z86.73 Personal history of transient ischemic attack (TIA), and cerebral infarction without residual deficits | CPT/HCPCS: 99205 ==

== ENCOUNTER 2022-12-21 06:51 | Outpatient (CLI) | payer MEDICARE, MEDICAID, SELFPAY ==
--- NOTE | 2022-12-21 10:17 | MR_ITS ---
WS: [id number] MRI CERVICAL SPINE NONCONTRAST TECHNIQUE: Sagittal T1, T2 and STIR imaging. Axial T2, gradient, and fiesta imaging. CLINICAL INFORMATION: SPINAL STENOSIS OF CERVICAL REGION COMPARISON: CT 2018 FINDINGS: Straightening of the normal cervical lordosis. Prior postoperative changes ACDF C4-C6. Disc bulging w orse at C6-7 with a small central protrusion with slight contact of the cervical cord.Small amount of chronic myelomalacia in the cervical cord at C5. C2-C3: Mild facet arthropathy. Mild LEFT foraminal narrowing. C3-C4: Moderate facet arthropathy. Moderate RIGHT and mild LEFT bony foraminal narrowing. C4-C5: ACDF. Moderate LEFT and no significant RIGHT foraminal narrowing. Mild facet arthropathy. C5-C6: ACDF. Mild LEFT and no significant RIGHT foraminal narrowing. Mild facet arthropathy. C6-C7: Small central disc protrusion with slight contact of the cervical cord with mild central canal stenosis. This appears progressed compared to the prior myelogram. Mild to moderate bilateral bony f oraminal narrowing. C7-T1: Mild LEFT and no significant RIGHT foraminal narrowing. Visualized brain stem structures: Normal. Prevertebral soft tissues: Normal. IMPRESSION: 1. Straightening of the normal cervical doses with ACDF C4-C6. 2. Small central disc protrusion C6-7 with mild central canal stenosis and slight indentation cervic al cord. This is progressed compared to previous. 3. Chronic myelomalacia in the cervical cord at C5. 4. Moderate RIGHT C3-4 bony foraminal narrowing with moderate RIGHT facet arthropathy. 5. Mild to moderate bony foraminal narrowing LEFT C4-5, LEFT C5-6, and bilateral C6-7 worse on the L EFT.
== END 2022-12-21 06:52 | disposition home or self-care (01) ==
LOC: RAD 06:51
PROVIDERS: PCP Nurse Practitioner Family; Visit Provider Neurological Surgery
DX: M48.02 Spinal stenosis, cervical region (principal); M50.223 Other cervical disc displacement at C6-C7 level; M47.812 Spondylosis without myelopathy or radiculopathy, cervical region
CPT/HCPCS: 72141

== ENCOUNTER → 2023-01-02 10:16 | Outpatient (BNVA) | payer MEDICARE, MEDICAID, SELFPAY | PROVIDERS: PCP Nurse Practitioner Family; Visit Provider Internal Medicine Cardiovascular Disease | DX: R55 Syncope and collapse (principal); I10 Essential (primary) hypertension; E78.2 Mixed hyperlipidemia; R94.31 Abnormal electrocardiogram [ECG] [EKG]; I49.8 Other specified cardiac arrhythmias | CPT/HCPCS: 99214 ==

== ENCOUNTER → 2023-01-04 13:36 | Outpatient (BNVA) | payer MEDICARE, MEDICAID, SELFPAY | PROVIDERS: PCP Nurse Practitioner Family; Visit Provider Nurse Practitioner Family | DX: R68.89 Other general symptoms and signs; Z20.822 Contact with and (suspected) exposure to COVID-19 | CPT/HCPCS: 87400; 87426 ==

== ENCOUNTER 2023-01-16 08:36 | Outpatient (CLI) | payer MEDICARE, MEDICAID, SELFPAY ==
--- NOTE | 2023-01-16 08:51 | CT_ITS ---
WS: [id number] CT chest w con* [id number] HISTORY: Follow up LEFT lung nodule. TECHNIQUE: Axial imaging performed through the thorax. Coronal and sagittal reformats are submitted. All CT scans at [facility] use at least one of these dose optimization techniques: automated exposure control; mA and/or kV adjustment per patient size (includes targeted exams where dose is mat ched to clinical indication); or iterative reconstruction. CONTRAST: Omnipaque 350; 100 mL IV. DLP: 527.22 mGy.cm COMPARISON: 07/12/2022, 06/28/2022, 06/28/2022, 01/28/2021 and 08/22/2018 Lungs and central airway: Reidentified is the 5 mm nodule in the RIGHT minor fissure. This has been p resent on prior studies since 2019. These are typically benign along the fissures. There is a small c luster of nodules in the medial LEFT lower lobe which is also been present since 2019. The entire com plex measures approximately 14 x 8 mm with an adjacent more focal 6 mm nodule. Otherwise lungs are cl ear. Pleura: Normal. No pleural effusion. Heart and pericardium: Normal size heart with no pericardial effusion. Mediastinum and wilfrido: No mediastinum or hilar adenopathy. Vessels: Normal size aortic and pulmonary artery. No coronary artery calcifications. Chest wall and lower neck: Tiny bilateral subcentimeter thyroid nodules. Upper abdomen: Small hiatal hernia. Numerous low-attenuation hepatic masses. Most consistent with cys ts. The largest in the medial RIGHT lobe of the liver measures 3.6 x 3.5 cm. Prior cholecystectomy. N o adrenal mass. Osseous structures: No destructive process. IMPRESSION: 1. Stable chest CT since 2018. 2. No interval change perifissural nodule on the RIGHT minor fissure. Stable cluster of nodules in th e medial LEFT lower lobe. 3. No adenopathy. 4. Hepatic cysts.
[2023-01-16] MEDS: iohexol 350 mg/mL 500 mL Btl (per mL) IV (09:32)
== END 2023-01-16 08:37 | disposition home or self-care (01) ==
PROVIDERS: PCP Nurse Practitioner Family; Visit Provider Internal Medicine Hematology & Oncology
DX: Z85.46 Personal history of malignant neoplasm of prostate (principal); K76.89 Other specified diseases of liver
CPT/HCPCS: 71260; 99214; Q9967

== ENCOUNTER 2023-01-16 09:40 | Oncology outpatient (recurring) (ONCR) | payer MEDICARE, MEDICAID, SELFPAY ==
[2023-01-16 10:48] VITALS: BP 151/89; PULSE 50; RESP 16; TEMP 36.7; O2SAT 98
[2023-01-16 11:40] LABS: Alanine Aminotransferase 17 U/L (0-41); Albumin Level 3.7 g/dL (3.5-5.2); Alkaline Phosphatase 108 U/L (40-130); Anion Gap 12.1 (5-19); Aspartate Amino Transferase 16 U/L (0-40); Blood Urea Nitrogen 7 mg/dL (6-20); Calcium 8.5 mg/dL (8.5-10.5); Carbon Dioxide 24 mmol/L (22-29); Chloride 106 mmol/L (98-107); Globulin 2.9 g/dL (1.3-4.6); Glomerular Filtration Rate 100.7 mL/min (90-130); Glucose 103 mg/dL (65-115); Osmolality Calculated 284 mOsm/kg (285-295); Potassium 4.1 mmol/L (3.5-5.1); Sodium 138 mmol/L (136-145); Total Bilirubin 0.3 mg/dL (0.15-1.2); Total Protein 6.6 g/dL (6.6-8.7)
[2023-01-16 11:44] LABS: Prostate Specific Antigen < 0.014 ng/mL (0-4)
== END 2023-01-21 23:59 | disposition home or self-care (01) ==
PROVIDERS: Internal Medicine Medical Oncology; PCP Nurse Practitioner Family; Visit Provider Internal Medicine Hematology & Oncology
DX: C61 Malignant neoplasm of prostate (principal); R91.1 Solitary pulmonary nodule; Z85.46 Personal history of malignant neoplasm of prostate; K76.89 Other specified diseases of liver
CPT/HCPCS: 36415; 71260; 80053; 84153; 99214; Q9967

== ENCOUNTER 2023-01-17 05:47 | Outpatient (CLI) | payer MEDICARE, MEDICAID, SELFPAY ==
[2023-01-17] VITALS (16 sets, daily range): BP systolic 114–190; BP diastolic 75–164; PULSE 54–86; RESP 12–25; TEMP 36.7–36.8; O2SAT 95–98; BMI 31.1
--- NOTE | 2023-01-17 06:00 | XACV_ITS ---
Ht: 178 cm Wt: 98 kg BSA: 2.23 m2 Gender: Male : 1970 Any Known Allergies: No known allergies Exam Priority: Routine Procedure(s): Procedure Description: Diagnostic procedure Procedure Description: Left Heart Catheterization Procedure Description: Left ventriculography Procedure Description: Coronary Angiography Ruy CONDE; Diagnostic Cath Status: Elective Diagnostic Findings * The left main is extremely short with no significant lesions. * The left anterior descending artery is a medium caliber vessel which appears to wrap around the LV apex. Mild diffuse intimal irregularities were noted in the proximal segment. * The left circumflex artery is a medium caliber codominant vessel with no significant stenotic lesions. * The right coronary artery is a small to medium caliber codominant vessel with no significant stenotic lesions. Conclusions 1. Patient has a history of ventricular fibrillation and syncope. Recent CVA.. Cardiac catheterization was recommended to further evaluate the coronary status and decide on further management. 2. Mild coronary artery disease. Elevated LVEDP of 25 mmHg. LV ejection fraction of 55%. Diagnostic RX Recommendation: medical therapy and/or counseling LV EDP: 25 mmHg Ventriculography Ejection Fraction: 55.0 % Left Ventriculography Findings: * The LV gram was performed in HUTCHINS projection. The LV cavity appears to be normal size. No significant mitral valve prolapse or mitral regurgitation. LVEDP was 25 mmHg. Pressures Phase:Rest AO : 116 / 86 ( 102 ) @ 8:31:00 AM 121 / 92 ( 107 ) @ 8:32:00 AM 123 / 89 ( 108 ) @ 8:37:00 AM 167 / 88 ( 120 ) @ 8:42:00 AM 162 / 89 ( 121 ) @ 8:42:00 AM LV : 163 / -2 / 25 @ 8:41:00 AM 179 / 5 / 31 @ 8:42:00 AM 167 / 5 / 30 @ 8:42:00 AM Valves Phase:DefaultPhase AV : 1.0 @ 7:53:16 AM 1.0 @ 7:53:16 AM AV Mean Gradient: 0.0 @ 7:53:16 AM 0.0 @ 7:53:16 AM Clinical Evaluation EBL: 5mL-10mL Procedural Details Procedure Consent Obtained. Admit Source: Out Patient. Pre-Procedure Time Out. Identified patient by full name and date of as verbalized by the patient/guarantor. Does the consent match the physician's order: Yes. Accurate & Complete Informed Consent: Yes. Inpatient/Outpatient History & Physical on Chart: Yes. If H&P is completed, is and addenduem needed: No; If yes, is the addendum complete: N/A. Visualize and Verify Site with Patient/Guarantor: N/A. Relevant Radiology Images available: Yes. The risks, benefits, and alternatives of sedation and/or procedure were discussed by physician. The patient agrees to continue. Procedure started. [facility] Clinical Fraility Score: 3: Managing Well. 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 Correct patient, site and procedure confirmed by cath team. PERRLA. Strong, equal hand channel sales manager bilaterally. Lungs clear x 5 lobes. IV Site on Arrival: 20 gauge in the left anticubital. IV Fluids: 0.9% NaCl at KVO. 0 mL infused prior to bean sprout laborer. Pre Procedural Pulses: bilateral radial was 3+. Pre Procedural Pulses: bilateral dorsalis pedis was 2+. Pre Procedural Pulses: bilateral posterior tibial was 2+. Oxygen started at 2liters/min via nasal canula. right groin was prepped with chloroprep then draped in the usual sterile fashion. right radial was prepped with chloroprep then draped in the usual sterile fashion. Physician notified. Baseline sample Acquired. HR: 53 BPM. Baseline sample Acquired. HR: 55 BPM. Physician arrived. Physician scrubbed in. Immediate Pre-Procedure Time Out. Correct Patient: Yes; Correct Procedure: Yes; Correct Site: Yes; Correct Patient Position: Yes; Correct Supplies: Yes; Dried Flammable Prep: Yes; Blood Products Available: N/A;. Lidocaine 1% infiltrated to the right radial. An attempt to gain access to the right radial artery was unsuccessful. Manual pressure was held as needed to stop the bleeding. Arterial access obtained. A 5 kyrgyz Brock catheter in over the exchange wire. Multiple views taken of left coronary artery. Catheter redirected to the RCA. Catheter removed over the exchange wire. A 5 kyrgyz JR4 catheter in over wire. Multiple views taken of right coronary artery. Catheter removed over the exchange wire. A 5 kyrgyz Angled Pig catheter in over wire. EDP Sample taken: LV 163/-3,25; HR: 69 BPM; SpO2: 99%. LV gram performed in HUTCHINS @ 10 mL/second for a total of 30 mL. EDP Sample taken: LV 179/5,31; HR: 71 BPM; SpO2: 99%. Pullback taken: LV 167/5,30; AO 167/88(120); Mean: 0mmHg, Peak to Peak: 1mmHg, SEP: 21sec/min; HR: 70 BPM; SpO2: 99%. Physician review of cine films. Physician scrubbed out. A TR Band was successful obtaining hemostatsis at the Right Radial artery insertion site. Catheter out. Post Procedure: Pulses reassessed and unchanged. PERRLA. Strong, equal hand channel sales manager bilaterally. No VTE prophylaxis required. Medication waste: Lidocaine 1% 2 mL; Fentanyl 50 mcg; Hydralazine 10mg; Heparin 1000 units; Nitro 49.8 mg. Total IV fluids: 250 mL. Estimated blood loss: 5mL-10mL. Responsiveness - Normal response to verbal stimuli; alert and oriented, PERRLA. Airway - Unaffected, no intervention required; spontaneous ventilation. Circulation: W/N/L, pulses unchanged. Nausea/Vomiting: No. Procedure completed. Patient transferred by wheelchair to CPRU. Vital chart was stopped. Access Site Site: Right Radial artery Sheath Size: 6 Fr Hemostasis Method: TR Band Hemostasis Success: Successful Procedure Medications Start: 7:18 AM Stop: 7:18 AM Medication: Versed Amount: 1 mg Route: I.V. Start: 7:18 AM Stop: 7:18 AM Medication: Fentanyl Amount: 50 mcg Route: I.V. Start: 7:20 AM Stop: 7:20 AM Medication: Hydralazine Amount: 10 mg Route: I.V. Start: 7:28 AM Stop: 7:28 AM Medication: Nitrogylcerin Amount: 200 mcg Route: I.A. Start: 7:29 AM Stop: 7:29 AM Medication: Versed Amount: 1 mg Route: I.V. Start: 7:30 AM Stop: 7:30 AM Medication: Heparin Amount: 5000 units Route: I.V. I, the attending physician, have reviewed and verified all procedure medications. Yes, all medications given per verbal order History/Risk Factors Hypertension: Yes Dyslipidemia: Yes Peripheral Arterial Disease (PAD): No Myocardial Infarction (SC): No Obesity: No Renal Disease: No Prior Interventions PCI: No CABG: No Valve Surgery: No Report Signatures Finalized by Dr Mercedes Redmond MD [facility] on 01/17/2023 08:23 AM
[2023-01-17] MEDS: aspirin 325 mg Tablet PO (06:05)
[2023-01-17] MEDS: diphenhydrAMINE 50 mg Capsule PO (06:05)
[2023-01-17 06:15] LABS: Basophils % 0.6 %; Eosinophils # 0.1 10^3/uL (0.0-0.8); Eosinophils % 1.2 %; Hematocrit 42.3 % (37-53); Lymphocytes # 1.3 10^3/uL (0.8-4.8); Lymphocytes % 18.2 %; Mean Corpuscular HGB Conc 35.5 g/dL (30-55); Mean Corpuscular Hemoglobin 31.4 pg (27-33); Mean Corpuscular Volume 88.5 fl (82-101); Mean Platelet Volume 8.2 fL (7.4-10.4); Monocytes # 0.5 10^3/uL (0.2-0.9); Monocytes % 7.1 %; Neutrophils # 5.04 10^3/uL (1.8-7.7); Neutrophils % 72.5 %; Nucleated Red Blood Cells % 0 %; Platelet Count 317 10^3/cmm (157-399); Red Blood Count 4.78 10^6/uL (3.85-5.65); Red Cell Distribution Width 12.3 % (12.1-15.1); White Blood Count 6.94 10^3/uL (3.29-11.43)
[2023-01-17 06:31] LABS: INR 0.86 (0.8-1.2)
[2023-01-17 06:39] LABS: Anion Gap 14.2 (5-19); Blood Urea Nitrogen 7 mg/dL (6-20); Calcium 9.4 mg/dL (8.5-10.5); Carbon Dioxide 25 mmol/L (22-29); Chloride 104 mmol/L (98-107); Glomerular Filtration Rate 100.7 mL/min (90-130); Glucose 119 mg/dL (65-115); Osmolality Calculated 287 mOsm/kg (285-295); Potassium 4.2 mmol/L (3.5-5.1); Sodium 139 mmol/L (136-145)
--- NOTE | 2023-01-17 07:08 | P.HPUD_ITS ---
Surgery/Procedure H&P Update DATE OF PROCEDURE: January 17, 2023 DATE H&P PERFORMED: 01/02/23 PREOP DIAGNOSIS: possible ASHD PRIMARY INDICATION FOR PROCEDURE: syncope/ ventricular arrhythmia PLANNED PROCEDURE: Operation Date: 01/17/23 07:00 Proposed Procedures p [facility] 55996,I49.9(Left) - Mercedes Redmond MD PATIENT REASSESSED PRIOR TO SEDATION, WITH NO CHANGE NOTED: Yes PHYSICAL EXAM: alert, oriented x 3, clear to auscultation bilaterally and regular rate & rhythm AIRWAY EVAL/ANESTHESIA PLAN: normal airway, see other exam findings, ASA III, Monitored Anesthesia, Local Anesthesia, Risks, benefits & alternatives of sedation and/or procedure discussed and Patient agrees to continue as planned
--- NOTE | 2023-01-17 07:50 | PC.NURSE ---
Recovery Note Pt arrived to CPRU 3 for recovery post cath. Pt drowsy, awakens to verbal stimuli. Oriented X 3. Denies pain. Breathing even and non-labored on room air. Placed on bedside director of casework department. TR band to right wrist, clean dry and intact. No signs of bleeding or hematoma. Radial pulse palpable. Call light i reach.
--- NOTE | 2023-01-17 09:15 | PC.NURSE ---
Pt transferred to CSU by wheelchair to finish recovery. Report given to CHANCE Rucker. Site checked with CHANCE Rucker .
--- NOTE | 2023-01-17 09:30 | PC.NURSE ---
Patient comes from qc lab technician via a wheelchair to CSU at 0920. He has a right radial TR-band in place. No hematoma noted.
[2023-01-17] MEDS: metoprolol tartrate 25 mg Tablet PO (10:28)
[2023-01-17] MEDS: isosorbide mononitrate ER 30 mg Tablet PO (13:31)
--- NOTE | 2023-01-17 15:18 | PC.NURSE ---
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 1ml of air is removed at 0930. 1ml of air is removed at 0957. 2ml's of air is removed at 1025. 2ml's of air is removed at 1130. 2ml's of air is removed at 1155. 2ml's of air is removed at 1207. 2ml's of air is removed at 1252. 2ml's of air is removed at 1310. 2ml's of air is removed at 1315. TR-band is removed at 1355. A 2 x 2 and tegaderm dressing is applied. No hematoma is noted. Patient is reminded to not use that arm/wrist for more than 5 pounds for the next 3 days. Patient states understanding.
== END 2023-01-17 15:11 | disposition home or self-care (01) ==
LOC: CCL 05:48 → CSU 09:39
PROVIDERS: Internal Medicine; PCP Nurse Practitioner Family; Visit Provider Internal Medicine Cardiovascular Disease
DX: R55 Syncope and collapse (principal); I49.9 Cardiac arrhythmia, unspecified; I25.10 Atherosclerotic heart disease of native coronary artery without angina pectoris; Z86.73 Personal history of transient ischemic attack (TIA), and cerebral infarction without residual deficits; I10 Essential (primary) hypertension; Z79.82 Long term (current) use of aspirin; Z85.46 Personal history of malignant neoplasm of prostate; I48.91 Unspecified atrial fibrillation; K21.9 Gastro-esophageal reflux disease without esophagitis; E78.2 Mixed hyperlipidemia
CPT/HCPCS: 36415; 80048; 85025; 85610; 93458; 96365; 96367; 99152; C1769; C1887; C1894; G0378; J0360; J1644; J2250; J3010; J3490; J7030; Q0163; Q9967

== ENCOUNTER → 2023-03-14 10:58 | Outpatient (BNVA) | payer MEDICARE, MEDICAID, SELFPAY | PROVIDERS: PCP Nurse Practitioner Family; Visit Provider Internal Medicine Cardiovascular Disease | DX: I10 Essential (primary) hypertension (principal); I49.8 Other specified cardiac arrhythmias; E78.2 Mixed hyperlipidemia; Z86.73 Personal history of transient ischemic attack (TIA), and cerebral infarction without residual deficits | CPT/HCPCS: 99214 ==

== ENCOUNTER 2023-04-13 10:46 | Oncology outpatient (recurring) (ONCR) | payer MEDICARE, MEDICAID, SELFPAY ==
[2023-04-13 11:00] VITALS: BP 151/98; PULSE 70; RESP 16; TEMP 36.6; O2SAT 98
[2023-04-13 11:07] LABS: Basophils % 0.9 %; Eosinophils # 0.1 10^3/uL (0.0-0.8); Eosinophils % 2.2 %; Hematocrit 40.5 % (37-53); Lymphocytes # 1.3 10^3/uL (0.8-4.8); Lymphocytes % 29.4 %; Mean Corpuscular HGB Conc 35.1 g/dL (30-55); Mean Corpuscular Hemoglobin 30.6 pg (27-33); Mean Corpuscular Volume 87.3 fl (82-101); Mean Platelet Volume 8.3 fL (7.4-10.4); Monocytes # 0.4 10^3/uL (0.2-0.9); Monocytes % 8.6 %; Neutrophils # 2.66 10^3/uL (1.8-7.7); Neutrophils % 58.7 %; Nucleated Red Blood Cells % 0 %; Platelet Count 228 10^3/cmm (157-399); Red Blood Count 4.64 10^6/uL (3.85-5.65); Red Cell Distribution Width 11.8 % (12.1-15.1); White Blood Count 4.53 10^3/uL (3.29-11.43)
[2023-04-13 11:35] LABS: Alanine Aminotransferase 23 U/L (0-41); Albumin Level 4.2 g/dL (3.5-5.2); Alkaline Phosphatase 128 U/L (40-130); Anion Gap 14.9 (5-19); Aspartate Amino Transferase 17 U/L (0-40); Blood Urea Nitrogen 7 mg/dL (6-20); Calcium 9.1 mg/dL (8.5-10.5); Carbon Dioxide 23 mmol/L (22-29); Chloride 105 mmol/L (98-107); Globulin 2.6 g/dL (1.3-4.6); Glomerular Filtration Rate 87.9 mL/min (90-130); Glucose 139 mg/dL (65-115); Osmolality Calculated 288 mOsm/kg (285-295); Potassium 3.9 mmol/L (3.5-5.1); Prostate Specific Antigen 0.024 ng/mL (0-4); Sodium 139 mmol/L (136-145); Testosterone Total 154.6 ng/dL (193-740); Total Bilirubin 0.5 mg/dL (0.15-1.2); Total Protein 6.8 g/dL (6.6-8.7)
== END 2023-04-23 23:59 | disposition home or self-care (01) ==
PROVIDERS: Internal Medicine Medical Oncology; PCP Nurse Practitioner Family; Visit Provider Nurse Practitioner Family
DX: C61 Malignant neoplasm of prostate (principal); M89.9 Disorder of bone, unspecified; C79.51 Secondary malignant neoplasm of bone; Z79.899 Other long term (current) drug therapy; Z51.11 Encounter for antineoplastic chemotherapy; Z51.0 Encounter for antineoplastic radiation therapy; Z79.818 Long term (current) use of other agents affecting estrogen receptors and estrogen levels; R07.81 Pleurodynia; Z79.891 Long term (current) use of opiate analgesic; K59.00 Constipation, unspecified; R30.0 Dysuria; N41.0 Acute prostatitis; R19.7 Diarrhea, unspecified; Z79.2 Long term (current) use of antibiotics; Z08 Encounter for follow-up examination after completed treatment for malignant neoplasm; Z85.46 Personal history of malignant neoplasm of prostate; Z92.3 Personal history of irradiation
CPT/HCPCS: 36415; 80053; 84153; 84403; 85025; 99214

== ENCOUNTER 2023-05-18 15:25 | Emergency (ER) | payer MEDICARE, MEDICAID, SELFPAY ==
[2023-05-18 15:44] VITALS: BP 135/83; PULSE 68; RESP 14; TEMP 36.6; O2SAT 96
[2023-05-18 15:56] LABS: Basophils # 0.1 10^3/uL (0.0-0.1); Basophils % 1.2 %; Eosinophils # 0.1 10^3/uL (0.0-0.8); Eosinophils % 2.3 %; Hematocrit 42.8 % (37-53); Lymphocytes # 1.4 10^3/uL (0.8-4.8); Lymphocytes % 33.1 %; Mean Corpuscular HGB Conc 34.3 g/dL (30-55); Mean Corpuscular Hemoglobin 29.9 pg (27-33); Mean Platelet Volume 8.2 fL (7.4-10.4); Monocytes # 0.5 10^3/uL (0.2-0.9); Monocytes % 10.6 %; Neutrophils # 2.24 10^3/uL (1.8-7.7); Neutrophils % 52.6 %; Nucleated Red Blood Cells % 0 %; Platelet Count 230 10^3/cmm (157-399); Red Blood Count 4.92 10^6/uL (3.85-5.65); White Blood Count 4.26 10^3/uL (3.29-11.43)
[2023-05-18 16:12] LABS: INR 0.91 (0.8-1.2)
[2023-05-18 16:16] LABS: Alanine Aminotransferase 27 U/L (0-41); Albumin Level 4.1 g/dL (3.5-5.2); Alkaline Phosphatase 120 U/L (40-130); Anion Gap 15.1 (5-19); Aspartate Amino Transferase 20 U/L (0-40); Blood Urea Nitrogen 11 mg/dL (6-20); Calcium 9.1 mg/dL (8.5-10.5); Carbon Dioxide 22 mmol/L (22-29); Chloride 107 mmol/L (98-107); Glomerular Filtration Rate 87.6 mL/min (90-130); Glucose 101 mg/dL (65-115); Osmolality Calculated 290 mOsm/kg (285-295); Potassium 4.1 mmol/L (3.5-5.1); Sodium 140 mmol/L (136-145); Total Bilirubin 0.3 mg/dL (0.15-1.2); Total Protein 7.1 g/dL (6.6-8.7)
--- NOTE | 2023-05-18 17:14 | ED_ITS ---
HPI - GI Bleed 2 General: Chief complaint: GI Bleed Stated complaint: passing blood Time Seen by Provider: 05/18/23 15:35 Source: patient Mode of arrival: ambulatory Limitations: no limitations History of Present Illness: 53-year-old male states that he has had slight amount of blood in his stools over the last 3 months. Had some diarrhea over that time as well. Denies any abdominal pain he denies any fever has had some generalized weakness denies any vomiting denies any worse improved factors is not on any blood thinners Associated symptoms: Denies abdominal pain, chills, fever(s), headache(s), nausea, rash or vomiting Review of Systems 2 Const: Reports: fatigue; Denies: fever(s), chills, body aches or change in appetite ENMT: Denies: throat pain or dental pain Card: Denies: chest pain Resp: Denies: dyspnea GI: Reports: diarrhea and hematochezia; Denies: abdominal pain, nausea or vomiting Musc: Denies: neck pain or back pain Skin/Breast: Denies: rash Neuro: Denies: headache(s) PFSH ED 2 PFSH: Medical History Afib Chest pain Pulmonary nodules Psychiatric care Metastatic adenocarcinoma to prostate Adenocarcinoma of prostate GERD (gastroesophageal reflux disease) Testalgia Surgical History H/O esophagogastroduodenoscopy (06/23/21) mild gastritis Status post colonoscopy (~06/23/21) normal H/O neck surgery for trauma Status post laparoscopic cholecystectomy Family History Father , AT AGE 50'S Lung disease Mother Lung disease COPD Social History Smoking and tobacco/nicotine status: never used tobacco/nicotine Alcohol intake: never Substance/Drug Use: never Adopted: No Lives independently: Yes Household members: spouse Marital status: Current occupational status: unemployed Physical Exam 2 Const: COMMON NORMALS: no acute distress, patient oriented x3 and healthy appearing HENMT: COMMON NORMALS: normocephalic and atraumatic HEAD & SCALP: n ormocephalic and atraumatic Eye: COMMON NORMALS: Equal, round and reactive pupils present and EOMs intact bilaterally PUPIL: Yes Equal, round and reactive pupils present Neck/C-Spine: COMMON NORMALS: full ROM and supple Chest: COMMONS NORMALS: normal inspection of the chest Resp: COMMON NORMALS: normal respiratory effort, No retractions, No use of accessory muscles and clear to auscultation bilaterally AUSCULTATION: clear to auscultation bilaterally Cardio: COMMON NORMALS: regular rate, regular rhythm and No murmurs present (Cardio) RATE: regular rate RHYTHM: regular rhythm GI: COMMON NORMALS: Normal to inspection, nondistended, normoactive bowel sounds present, Soft to palpation, non-tender and no masses PALPATION: Yes Soft to palpation Extremity: COMMON NORMALS: normal to inspection and full ROM Neuro: COMMON NORMALS: patient oriented x3, moves all extremities and no focal motor deficits Psych: COMMON NORMALS: mental status grossly normal, Normal thought process present and cooperative THOUGHT PROCESS: Normal thought process present Skin: COMMON NORMALS: no rashes or lesions noted and no wounds GENERAL SKIN EXAM: no rashes or lesions noted Course 2 Vital Signs: Vital signs: Vital Signs Temperature 97.9 F 05/18/23 15:44 Pulse Rate 68 05/18/23 15:44 Respiratory Rate 14 05/18/23 15:44 Blood Pressure 135/83 05/18/23 15:44 Pulse Oximetry 96 05/18/23 15:44 Oxygen Delivery Me thod Room Air 05/18/23 15:44 MDM - GI Bleed Medical Decision Making Patient presents with lower GI bleeding has been going on for months he is well- appearing here blood works all normal. He is stable for discharge he is to follow-up with his PCP along with surgery and return if worsening. Lab Data I reviewed the patient's lab results. 05/18/23 15:47 05/18/23 15:47 Laboratory Results WBC 4.26 10^3/uL (3.29-11.43) 05/18/23 15:47 RBC 4.92 10^6/uL (3.85-5.65) 05/18/23 15:47 Hgb 14.70 g/dL (11.27-16.99) 05/18/23 15:47 Hct 42.8 % (37-53) 05/18/23 15:47 MCV 87.0 fl (82-101) 05/18/23 15:47 MCH 29.9 pg (27-33) 05/18/23 15:47 MCHC 34.3 g/dL (30-55) 05/18/23 15:47 RDW 12.0 % (12.1-15.1) L 05/18/23 15:47 Plt Count 230 10^3/cmm (157-399) 05/18/23 15:47 MPV 8.2 fL (7.4-10.4) 05/18/23 15:47 Neut % (Auto) 52.6 % 05/18/23 15:47 Lymph % (Auto) 33.1 % 05/18/23 15:47 [place] % (Auto) 10.6 % 05/18/23 15:47 Eos % (Auto) 2.3 % 05/18/23 15:47 Baso % (Auto) 1.2 % 05/18/23 15:47 Neut # (Auto) 2.24 10^3/uL (1.8-7.7) 05/18/23 15:47 Lymph # (Auto) 1.4 10^3/uL (0.8-4.8) 05/18/23 15:47 [place] # (Auto) 0.5 10^3/uL (0.2-0.9) 05/18/23 15:47 Eos # (Auto) 0.1 10^3/uL (0.0-0.8) 05/18/23 15:47 Baso # (Auto) 0.1 10^3/uL (0.0-0.1) 05/18/23 15:47 Nucleated RBC % (auto) 0 % 05/18/23 15:47 Nucleated RBCs # 0.0 /100WBC 05/18/23 15:47 PT 12.60 SECONDS (12.1-14.9) 05/18/23 15:47 INR 0.91 (0.8-1.2) 05/18/23 15:47 Sodium 140 mmol/L (136-145) 05/18/23 15:47 Potassium 4.1 mmol/L (3.5-5.1) 05/18/23 15:47 Chloride 107 mmol/L (98-107) 05/18/23 15:47 Carbon Dioxide 22 mmol/L (22-29) 05/18/23 15:47 Anion Gap 15.1 (5-19) 05/18/23 15:47 BUN 11 mg/dL (6-20) 05/18/23 15:47 Creatinine 0.9 mg/dL (0.7-1.2) 05/18/23 15:47 GFR Calculation 87.6 mL/min (90-130) L 05/18/23 15:47 Glucose 101 mg/dL (65-115) 05/18/23 15:47 Calculated Osmolality 290 mOsm/kg (285-295) 05/18/23 15:47 Calcium 9.1 mg/dL (8.5-10.5) 05/18/23 15:47 Total Bilirubin 0.3 mg/dL (0.15-1.2) 05/18/23 15:47 AST 20 U/L (0-40) 05/18/23 15:47 ALT 27 U/L (0-41) 05/18/23 15:47 Alkaline Phosphatase 120 U/L (40-130) 05/18/23 15:47 Total Protein 7.1 g/dL (6.6-8.7) 05/18/23 15:47 Albumin 4.1 g/dL (3.5-5.2) 05/18/23 15:47 Globulin 3.0 g/dL (1.3-4.6) 05/18/23 15:47 No radiology studies performed this visit Discharge Plan Discharge Patient Disposition: Home Clinical Impression: Lower gastrointestinal hemorrhage Condition: Stable Prescriptions: No Action nitroglycerin [Nitrostat] 0.4 mg tablet, sublingual 0.4 mg sublingual Q5M PRN (Reason: chest pain) Qty: 10 0RF Rx Instructions: do not exceed 3 doses per episode multivitamin Tablet 1 tab PO QAM ferrous sulfate 325 mg (65 mg iron) tablet 325 mg PO QAM lorazepam 1 mg tablet See Rx Instructions .ROUTE .COMPLEX 30 Days Qty: 60 3RF Rx Instructions: take 1 to 2 tabs po hs prn sleep or anxiety oxycodone-acetaminophen [Percocet] 5-325 mg tablet 1 - 2 tab PO .Q4-6H PRN (Reason: pain) 30 Days Qty: 90 0RF Compazine 10 mg tablet 10 mg PO Q4H PRN (Reason: Mild Nausea) Qty: 30 3RF metoprolol tartrate 25 mg tablet 25 mg PO BID 30 Days Qty: 60 5RF aspirin 81 mg Capsule 81 mg PO BEDTIME naloxone [Narcan] 4 mg/actuation spray,non-aerosol 1 spray INTRANASAL DIRECTED Rx Instructions: 1 spray into each nosril every 2-3minutes prn bicalutamide 50 mg tablet 50 mg PO QAM atorvastatin 40 mg Tablet 40 mg PO BEDTIME Qty: 30 0RF fluoxetine 40 mg capsule 80 mg PO QAM isosorbide mononitrate 30 mg tablet extended release 24 hr 30 mg PO DAILY Qty: 30 5RF Discharge Orders: Discharge ED (Routine); Ordered 05/18/23 Ordered By: Lucia Bashir Referrals: Jaleesa Valdez FNP [Primary Care Provider] - 1-3 days Discharge Diet: Advance as tolerated Discharge Activity: Resume usual activity Patient Instructions: Gastrointestinal Bleeding (ED) Coding Level of Care Code ED Breaker Mechanic for Kevin Pichardo
--- NOTE | 2023-05-18 18:58 | DCPLANNER ---
Message was sent to general surgery for Dr. Garcia on 05/18/23 at 0743. Clinic to contact patient
== END 2023-05-18 17:34 | disposition home or self-care (01) ==
PROVIDERS: Emergency Provider Emergency Medicine; PCP Nurse Practitioner Family
DX: K92.2 Gastrointestinal hemorrhage, unspecified (principal); Z79.82 Long term (current) use of aspirin
CPT/HCPCS: 36415; 80053; 85025; 85610; 99283

== ENCOUNTER 2023-05-19 08:16 | Oncology outpatient (recurring) (ONCR) | payer MEDICARE, MEDICAID, SELFPAY ==
[2023-05-19 08:38] VITALS: BP 135/81; PULSE 61; RESP 16; TEMP 36.2; O2SAT 94
[2023-05-19 09:06] LABS: Basophils # 0.1 10^3/uL (0.0-0.1); Eosinophils # 0.1 10^3/uL (0.0-0.8); Eosinophils % 2.4 %; Lymphocytes # 1.2 10^3/uL (0.8-4.8); Mean Corpuscular HGB Conc 35.2 g/dL (30-55); Mean Corpuscular Hemoglobin 30.5 pg (27-33); Mean Corpuscular Volume 86.4 fl (82-101); Mean Platelet Volume 8.5 fL (7.4-10.4); Monocytes # 0.4 10^3/uL (0.2-0.9); Monocytes % 7.5 %; Neutrophils # 3.21 10^3/uL (1.8-7.7); Neutrophils % 64.7 %; Nucleated Red Blood Cells % 0 %; Platelet Count 222 10^3/cmm (157-399); Red Blood Count 4.86 10^6/uL (3.85-5.65); Red Cell Distribution Width 11.9 % (12.1-15.1); White Blood Count 4.96 10^3/uL (3.29-11.43)
[2023-05-19 09:36] LABS: Alanine Aminotransferase 25 U/L (0-41); Albumin Level 4.1 g/dL (3.5-5.2); Alkaline Phosphatase 116 U/L (40-130); Aspartate Amino Transferase 17 U/L (0-40); Blood Urea Nitrogen 11 mg/dL (6-20); Calcium 9.3 mg/dL (8.5-10.5); Carbon Dioxide 22 mmol/L (22-29); Chloride 106 mmol/L (98-107); Globulin 2.8 g/dL (1.3-4.6); Glomerular Filtration Rate 87.6 mL/min (90-130); Glucose 138 mg/dL (65-115); Osmolality Calculated 294 mOsm/kg (285-295); Prostate Specific Antigen 0.026 ng/mL (0-4); Sodium 141 mmol/L (136-145); Testosterone Total 144.3 ng/dL (193-740); Total Bilirubin 0.3 mg/dL (0.15-1.2); Total Protein 6.9 g/dL (6.6-8.7)
== END 2023-05-24 23:59 | disposition home or self-care (01) ==
PROVIDERS: PCP Nurse Practitioner Family; Visit Provider Nurse Practitioner Family
DX: C61 Malignant neoplasm of prostate (principal); Z53.9 Procedure and treatment not carried out, unspecified reason; M89.9 Disorder of bone, unspecified; C79.51 Secondary malignant neoplasm of bone; Z79.899 Other long term (current) drug therapy; Z79.818 Long term (current) use of other agents affecting estrogen receptors and estrogen levels; R07.81 Pleurodynia; Z79.891 Long term (current) use of opiate analgesic; K59.00 Constipation, unspecified; R30.0 Dysuria; N41.0 Acute prostatitis; R19.7 Diarrhea, unspecified; Z79.2 Long term (current) use of antibiotics; Z08 Encounter for follow-up examination after completed treatment for malignant neoplasm; Z92.3 Personal history of irradiation
CPT/HCPCS: 36415; 80053; 84153; 84403; 85025; 99214

== ENCOUNTER → 2023-06-06 10:09 | Outpatient (BNVA) | payer MEDICARE, MEDICAID, SELFPAY | PROVIDERS: PCP Nurse Practitioner Family; Referring Provider Emergency Medicine; Visit Provider Surgery | DX: K92.2 Gastrointestinal hemorrhage, unspecified | CPT/HCPCS: 36415; 80048; 82274; 82308; 83630; 85025; 99204 ==

== ENCOUNTER → 2023-08-08 10:34 | Outpatient (BNVA) | payer MEDICARE, MEDICAID, SELFPAY | PROVIDERS: PCP Nurse Practitioner Family; Visit Provider Nurse Practitioner Family | DX: R19.7 Diarrhea, unspecified (principal) | CPT/HCPCS: 87045; 87427; 87449; 87493 ==

== ENCOUNTER 2023-08-18 07:46 | Oncology outpatient (recurring) (ONCR) | payer MEDICARE, MEDICAID, SELFPAY ==
[2023-08-18 08:15] LABS: Basophils # 0.1 10^3/uL (0.0-0.1); Basophils % 0.9 %; Eosinophils # 0.1 10^3/uL (0.0-0.8); Eosinophils % 2.6 %; Lymphocytes # 1.3 10^3/uL (0.8-4.8); Lymphocytes % 22.9 %; Mean Corpuscular HGB Conc 34.3 g/dL (30-55); Mean Corpuscular Hemoglobin 30.7 pg (27-33); Mean Corpuscular Volume 89.6 fl (82-101); Mean Platelet Volume 8.5 fL (7.4-10.4); Monocytes # 0.5 10^3/uL (0.2-0.9); Monocytes % 8.6 %; Neutrophils # 3.54 10^3/uL (1.8-7.7); Neutrophils % 64.8 %; Nucleated Red Blood Cells % 0 %; Platelet Count 244 10^3/cmm (157-399); Red Blood Count 4.69 10^6/uL (3.85-5.65); White Blood Count 5.46 10^3/uL (3.29-11.43)
[2023-08-18 08:42] LABS: Alanine Aminotransferase 19 U/L (0-41); Albumin Level 3.8 g/dL (3.5-5.2); Alkaline Phosphatase 131 U/L (40-130); Aspartate Amino Transferase 15 U/L (0-40); Blood Urea Nitrogen 8 mg/dL (6-20); Calcium 8.5 mg/dL (8.5-10.5); Carbon Dioxide 24 mmol/L (22-29); Chloride 108 mmol/L (98-107); Globulin 2.9 g/dL (1.3-4.6); Glomerular Filtration Rate 77.6 mL/min (90-130); Glucose 112 mg/dL (65-115); Osmolality Calculated 289 mOsm/kg (285-295); Prostate Specific Antigen 0.065 ng/mL (0-4); Sodium 140 mmol/L (136-145); Testosterone Total 243.8 ng/dL (193-740); Total Bilirubin 0.2 mg/dL (0.15-1.2); Total Protein 6.7 g/dL (6.6-8.7)
[2023-08-18 08:45] LABS: Anion Gap 12.4 (5-19); Potassium 4.4 mmol/L (3.5-5.1)
== END 2023-08-22 23:59 | disposition home or self-care (01) ==
PROVIDERS: PCP Nurse Practitioner Family; Visit Provider Nurse Practitioner Family
DX: C61 Malignant neoplasm of prostate (principal); Z79.899 Other long term (current) drug therapy; Z79.818 Long term (current) use of other agents affecting estrogen receptors and estrogen levels; R07.81 Pleurodynia; Z79.891 Long term (current) use of opiate analgesic; K59.00 Constipation, unspecified; R30.0 Dysuria; N41.0 Acute prostatitis; R19.7 Diarrhea, unspecified; Z79.2 Long term (current) use of antibiotics; R97.20 Elevated prostate specific antigen [PSA]; C79.82 Secondary malignant neoplasm of genital organs
CPT/HCPCS: 36415; 80053; 84153; 84403; 85025; 99214

== ENCOUNTER → 2023-08-23 10:24 | Outpatient (BNVA) | payer MEDICARE, MEDICAID, SELFPAY | PROVIDERS: PCP Nurse Practitioner Family; Visit Provider Internal Medicine Cardiovascular Disease | DX: Z86.73 Personal history of transient ischemic attack (TIA), and cerebral infarction without residual deficits (principal); I25.10 Atherosclerotic heart disease of native coronary artery without angina pectoris; I10 Essential (primary) hypertension; I49.8 Other specified cardiac arrhythmias | CPT/HCPCS: 99214 ==

== ENCOUNTER 2023-11-23 11:13 | Oncology outpatient (recurring) (ONCR) | payer MEDICARE, MEDICAID, SELFPAY ==
[2023-11-23 11:22] LABS: Basophils % 0.8 %; Eosinophils # 0.1 10^3/uL (0.0-0.8); Eosinophils % 2.1 %; Hematocrit 44.6 % (37-53); Lymphocytes # 1.9 10^3/uL (0.8-4.8); Lymphocytes % 35.8 %; Mean Corpuscular HGB Conc 33.2 g/dL (30-55); Mean Corpuscular Hemoglobin 30.1 pg (27-33); Mean Corpuscular Volume 90.8 fl (82-101); Mean Platelet Volume 8.2 fL (7.4-10.4); Monocytes # 0.7 10^3/uL (0.2-0.9); Monocytes % 13.2 %; Neutrophils # 2.54 10^3/uL (1.8-7.7); Neutrophils % 47.9 %; Nucleated Red Blood Cells % 0 %; Platelet Count 214 10^3/cmm (157-399); Red Blood Count 4.91 10^6/uL (3.85-5.65)
[2023-11-23 11:52] LABS: Alanine Aminotransferase 26 U/L (0-41); Albumin Level 3.9 g/dL (3.5-5.2); Alkaline Phosphatase 117 U/L (40-130); Anion Gap 15.3 (5-19); Aspartate Amino Transferase 16 U/L (0-40); Blood Urea Nitrogen 9 mg/dL (6-20); Calcium 8.5 mg/dL (8.5-10.5); Carbon Dioxide 22 mmol/L (22-29); Chloride 109 mmol/L (98-107); Globulin 2.8 g/dL (1.3-4.6); Glomerular Filtration Rate 69.5 mL/min (90-130); Glucose 108 mg/dL (65-115); Osmolality Calculated 293 mOsm/kg (285-295); Potassium 4.3 mmol/L (3.5-5.1); Prostate Specific Antigen 0.121 ng/mL (0-4); Sodium 142 mmol/L (136-145); Testosterone Total 265.1 ng/dL (193-740); Total Bilirubin 0.3 mg/dL (0.15-1.2); Total Protein 6.7 g/dL (6.6-8.7)
== END 2023-12-28 08:31 | disposition home or self-care (01) ==
PROVIDERS: PCP Nurse Practitioner Family; Visit Provider Nurse Practitioner Family
DX: C61 Malignant neoplasm of prostate (principal); C79.51 Secondary malignant neoplasm of bone; Z79.899 Other long term (current) drug therapy; Z79.818 Long term (current) use of other agents affecting estrogen receptors and estrogen levels; Z79.891 Long term (current) use of opiate analgesic; Z79.2 Long term (current) use of antibiotics; Z92.3 Personal history of irradiation; Z53.9 Procedure and treatment not carried out, unspecified reason; R97.20 Elevated prostate specific antigen [PSA]
CPT/HCPCS: 36415; 80053; 84153; 84403; 85025; 99214

== ENCOUNTER → 2024-01-10 12:31 | Outpatient (BNVA) | payer MEDICARE, OTHER, SELFPAY | PROVIDERS: PCP Nurse Practitioner Family; Visit Provider Internal Medicine Cardiovascular Disease | DX: R07.9 Chest pain, unspecified (principal); R06.02 Shortness of breath; I25.10 Atherosclerotic heart disease of native coronary artery without angina pectoris; I10 Essential (primary) hypertension; I49.9 Cardiac arrhythmia, unspecified | CPT/HCPCS: 99213 ==

== ENCOUNTER 2024-01-26 08:48 | Oncology outpatient (recurring) (ONCR) | payer MEDICARE, MEDICAID, SELFPAY ==
[2024-01-26 09:19] LABS: Basophils # 0.1 10^3/uL (0.0-0.1); Basophils % 1.3 %; Eosinophils # 0.1 10^3/uL (0.0-0.8); Hematocrit 44.5 % (37-53); Lymphocytes # 1.4 10^3/uL (0.8-4.8); Mean Corpuscular HGB Conc 35.1 g/dL (30-55); Mean Corpuscular Hemoglobin 30.8 pg (27-33); Mean Corpuscular Volume 87.8 fl (82-101); Mean Platelet Volume 8.1 fL (7.4-10.4); Monocytes # 0.4 10^3/uL (0.2-0.9); Monocytes % 9.3 %; Neutrophils # 2.48 10^3/uL (1.8-7.7); Neutrophils % 55.2 %; Nucleated Red Blood Cells % 0 %; Platelet Count 202 10^3/cmm (157-399); Red Blood Count 5.07 10^6/uL (3.85-5.65)
[2024-01-26 09:50] LABS: Alanine Aminotransferase 23 U/L (0-41); Albumin Level 4.1 g/dL (3.5-5.2); Alkaline Phosphatase 119 U/L (40-130); Aspartate Amino Transferase 17 U/L (0-40); Blood Urea Nitrogen 7 mg/dL (6-20); Calcium 8.6 mg/dL (8.5-10.5); Carbon Dioxide 24 mmol/L (22-29); Chloride 106 mmol/L (98-107); Globulin 2.6 g/dL (1.3-4.6); Glomerular Filtration Rate 69.5 mL/min (90-130); Glucose 109 mg/dL (65-115); Osmolality Calculated 287 mOsm/kg (285-295); Prostate Specific Antigen 0.157 ng/mL (0-4); Sodium 139 mmol/L (136-145); Testosterone Total 290.1 ng/dL (193-740); Total Bilirubin 0.5 mg/dL (0.15-1.2); Total Protein 6.7 g/dL (6.6-8.7)
== END 2024-02-22 23:59 | disposition home or self-care (01) ==
PROVIDERS: Internal Medicine Hematology & Oncology; PCP Nurse Practitioner Family; Visit Provider Nurse Practitioner Family
DX: C61 Malignant neoplasm of prostate (principal); Z79.899 Other long term (current) drug therapy; Z92.3 Personal history of irradiation
CPT/HCPCS: 36415; 80053; 84153; 84403; 85025; 99214

== ENCOUNTER 2024-02-02 06:49 | Outpatient (CLI) | payer MEDICARE, SELFPAY ==
--- NOTE | 2024-02-02 | ECG_ITS ---
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 Interpretive Statements LEXISCAN SESTAMIBI STRESS TEST Procedure: At the baseline, the blood pressure was 136/98mmHg with a heart rate of 51 bpm. The electrocardiogram showed Sinus bradycardia, normal axis with normal ST and T's. The Lexiscan was infused over a period of 20 seconds. A total of 0.4 mg of Lexiscan was infused. The stress phase was continued for a total of 5 minutes. Heart rate was at the end of stress phase was 67 bpm and a blood pressure of 129/94 mmHg. The EKG at the peak infusion revealed normal sinus rhythm with no significant ST-T wave changes. Sestamibi was injected 20 seconds after the Lexiscan infusion. Blood pressure at the end of recovery phase was 139/83 mmHg with a heart rate of 66 bpm. Conclusion: 1. Normal EKG response to Lexiscan infusion 2. No Lexiscan induced chest pain or cardiac arrhythmia. 3. Normal blood pressure and heart rate response. 4. Sestamibi/sestamibi perfusion scan pending; see separate report. Electronically Signed On 02-02-2024 19:35:41 CDT by Peter Brenner M.D. [email or web address]
[2024-02-02 07:58] VITALS: BMI 31.8
--- NOTE | 2024-02-02 07:59 | NMCV_ITS ---
NM hermann perf SPECT r/s* [id number] Jone Boogie Age: 53 Gender: M : 1970 Exam Date: 02/02/2024 07:55 Ordering Phys: Parrish Gallaghre MD ([email or web address]) Technologist: IRMA Rangel Exam Location: [facility] Indications: CP STRESS TEST Please see separate stress test report in [facility] for full findings IMAGE PROTOCOL Rest/Stress 1 Lexiscan Radiopharmaceutical Dose (mCi) Administration Site Administered by Rest: Tc-99m 10.7 IV IRMA Rangel Sestamibi Stress:Tc-99m 32.3 IV Gisele Macario, ADOPTION SPECIALIST Sestamibi Rest: 02-Feb-2024 60 Discovery 630 Stress: 02-Feb-2024 30 Discovery 630 0.4mg Lexiscan. Images obtained in supine and prone position. SPECT RESULTS Technical Quality: Good Raw Data Analysis: Normal Image Corrections: No attenuation or motion correction applied Summed Stress Score: 0 Summed Rest Score: 0 Summed Difference Score: 0 PERFUSION FINDINGS Small area of fixed perfusion defect noted in the mid anterior wall surrounded by medium sized area of moderate reversibility suggestive of small area of old myocardial infarction surrounded by medium sized area of moderate radha-infarct ischemia in LAD territory. FUNCTIONAL RESULTS (calculated via Gated SPECT) Stress Image LV EF (%): 63 Stress EDV (mL):115 TID: 1.02 Stress ESV (mL):43 FUNCTIONAL FINDINGS: There is normal left ventricular systolic function. IMPRESSIONS Small area of old myocardial infarction surrounded by medium sized area of moderate radha-infarct ischemia noted in mid anterior wall suggestive of possible lesion in the LAD territory. In the absence of wall motion abnormality cannot rule out artifact clinical correlation advised. Parrish Gallagher MD (Electronically Signed) Final Date: 02 February 2024 12:06 S
[2024-02-02] MEDS: regadenoson 0.4 Mg/5 ml Syringe IVP (08:38)
[2024-02-02 09:10] VITALS: BP 139/83; PULSE 68
== END 2024-02-02 06:50 | disposition home or self-care (01) ==
PROVIDERS: PCP Nurse Practitioner Family; Visit Provider Internal Medicine Cardiovascular Disease
DX: R07.9 Chest pain, unspecified (principal); R94.39 Abnormal result of other cardiovascular function study
CPT/HCPCS: 36415; 78452; 93017; 96374; A9500; J2785

== ENCOUNTER 2024-02-12 09:24 | Outpatient (CLI) | payer MEDICARE, SELFPAY ==
--- NOTE | 2024-02-12 10:00 | USCV_ITS ---
Jone Boogie Age: 53 Gender: M : 1970 Exam Date: 02/12/2024 09:39 Ordering Phys: Parrish Gallagher MD ([email or web address]) Technologist: CT [place]am [place] [facility] [place]ication: sob BP: 140 / 80 HR: 65 Rhythm: Sinus Technical Quality: Adequate MEASUREMENTS (Male / Female) Normal Values 2D ECHO LVOT Diameter 2.1 cm LV Ejection Fraction MOD 4C 56.4 % LV Ejection Fraction MOD 2C 52.0 % LV Ejection Fraction 2C AL 54.1 % LA Diameter 3.1 cm RA Systolic Volume 4C AL 78.5 ml RA Systolic Volume 4C MOD 77.4 ml LA Sys Volume AL 54.4 cm cubed LA Sys Volume Index AL 24.0 cm cubed/m squared Aorta at Sinotubular Diameter 2.6 cm M-MODE LA Ao Ratio MM 1.2 AV Cusp Separation MM 2.6 cm DOPPLER AV Peak Velocity 144.0 cm/s LVOT Peak Velocity 89.0 cm/s AV Area Cont Eq vti 2.8 cm squared AV Area Cont Eq pk 2.2 cm squared MV Peak Velocity 85.0 cm/s MV Area PHT 3.8 cm squared Mitral E to A Ratio 0.9 TR Peak Velocity 173.0 cm/s TR Peak Gradient 12.0 mmHg TV Peak E Velocity 69.0 cm/s Right Atrial Pressure 3.0 mmHg Pulmonary Artery Systolic Pressu 15.0 mmHg PV Peak Velocity 109.0 cm/s FINDINGS Left Ventricle Normal left ventricular size, systolic function and wall thickness, with no regional wall motion abnormalities. Left ventricular ejection fraction is estimated at 60 %. Grade I/IV diastolic dysfunction (abnormal relaxation filling pattern), normal to mildly elevated filling pressures. Right Ventricle The right ventricle is normal in size and function. Right Atrium The right atrium is normal in size. Left Atrium The left atrium is normal in size. Mitral Valve Structurally normal mitral valve without significant stenosis or prolapse. There is no mitral regurgitation. Aortic Valve Structurally normal aortic valve without significant sclerosis or stenosis. There is trace aortic regurgitation. Tricuspid Valve Structurally normal tricuspid valve without significant stenosis or regurgitation. Pulmonary artery systolic pressure is normal. Pulmonic Valve Structurally normal pulmonic valve without significant stenosis. There is trace pulmonic regurgitation. Pericardium Normal pericardium without effusion. Aorta Normal ascending aorta dimension. IVC The inferior vena cava appears normal. CONCLUSIONS Normal left ventricular size, systolic function and wall thickness, with no regional wall motion abnormalities. Left ventricular ejection fraction is estimated at 60 %. Grade I/IV diastolic dysfunction (abnormal relaxation filling pattern), normal to mildly elevated filling pressures. Structurally normal aortic valve without significant sclerosis or stenosis. There is trace aortic regurgitation. There is no pericardial effusion. Pulmonary artery systolic pressure is within normal limits. Right atrial pressure is around 5 mm of mercury. Parrish Gallagher MD (Electronically Signed) Final Date: 12 February 2024 20:04 S
== END 2024-02-12 09:25 | disposition home or self-care (01) ==
PROVIDERS: PCP Nurse Practitioner Family; Visit Provider Internal Medicine Cardiovascular Disease
DX: I50.30 Unspecified diastolic (congestive) heart failure (principal); R06.02 Shortness of breath
CPT/HCPCS: 93306

== ENCOUNTER 2024-05-06 08:00 | Oncology outpatient (recurring) (ONCR) | payer MEDICARE, SELFPAY ==
[2024-04-25 09:01] LABS: Basophils # 0.1 10^3/uL (0.0-0.1); Eosinophils # 0.1 10^3/uL (0.0-0.8); Eosinophils % 1.9 %; Hematocrit 46.9 % (37-53); Lymphocytes # 1.8 10^3/uL (0.8-4.8); Lymphocytes % 25.4 %; Mean Corpuscular HGB Conc 34.3 g/dL (30-55); Mean Corpuscular Hemoglobin 30.7 pg (27-33); Mean Corpuscular Volume 89.5 fl (82-101); Mean Platelet Volume 8.3 fL (7.4-10.4); Monocytes # 0.5 10^3/uL (0.2-0.9); Monocytes % 7.8 %; Neutrophils % 63.8 %; Nucleated Red Blood Cells % 0 %; Platelet Count 242 10^3/cmm (157-399); Red Blood Count 5.24 10^6/uL (3.85-5.65); Red Cell Distribution Width 12.3 % (12.1-15.1)
[2024-04-25 09:28] LABS: Alanine Aminotransferase 23 U/L (0-41); Albumin Level 4.4 g/dL (3.5-5.2); Alkaline Phosphatase 113 U/L (40-130); Anion Gap 14.1 (5-19); Aspartate Amino Transferase 16 U/L (0-40); Blood Urea Nitrogen 8 mg/dL (6-20); Calcium 8.9 mg/dL (8.5-10.5); Carbon Dioxide 25 mmol/L (22-29); Chloride 105 mmol/L (98-107); Globulin 2.8 g/dL (1.3-4.6); Glomerular Filtration Rate 77.6 mL/min (90-130); Glucose 130 mg/dL (65-115); Lactate Dehydrogenase 209 U/L (135-225); Osmolality Calculated 290 mOsm/kg (285-295); Potassium 4.1 mmol/L (3.5-5.1); Prostate Specific Antigen 0.273 ng/mL (0-4); Sodium 140 mmol/L (136-145); Testosterone Total 318.5 ng/dL (193-740); Total Bilirubin 0.4 mg/dL (0.15-1.2); Total Protein 7.2 g/dL (6.6-8.7)
--- NOTE | 2024-04-30 13:45 | MR_ITS ---
WS: [id number] MRI LUMBAR SPINE NONCONTRAST TECHNIQUE: Sagittal T1, T2 and STIR imaging. Axial T1 and T2 imaging. Patient returned on 05/01/24 for additional thin cut imaging at the L4 level for better anatomic detail of a suspected disc fragment CLINICAL INFORMATION: M54.50 - Low back pain, unspecified COMPARISON: MRI lumbar 07/08/2021 FINDINGS: Postoperative changes ACDF C4-C6 on the molding sander imaging. No acute compression fractures. New extruded d isc fragment posterior to the L4 vertebral body in the LEFT subarticular recess. L1-L2: Mild annular bulging. Spinal canal and foramen are patent. Mild facet arthropathy. L2-L3: Mild annular bulging. Tiny central protrusion. Mild central canal stenosis. Moderate facet art hropathy. Mild RIGHT foraminal narrowing with a small RIGHT foraminal protrusion. L3-L4: Mild annular bulging with a tiny central disc protrusion. Impingement on the LEFT greater than RIGHT subarticular recess. Mild central canal stenosis. This is similar to previous. Mild bilateral foraminal narrowing. Mild facet arthropathy. L4-L5: New LEFT subarticular extruded disc fragment impinges the LEFT subarticular recess and shey ing LEFT L4 and L5 nerve roots with mild central canal stenosis. Disc material measures 6.5 x 11.3 x 12.3 mm. Minimal foraminal narrowing. Mild facet arthropathy. L5-S1: Mild annular bulging. Slight contact of the traversing S1 nerve roots. Moderate facet arthropa thy. Mild LEFT proximal foraminal narrowing. Visualized pelvic bony structures: Normal. Paravertebral soft tissues: Normal. MR/MR lumbar spine wo con* [id number] IMPRESSION: 1. New LEFT subarticular extruded disc fragment posterior to the mid L4 verteb ral body with mild to moderate impingement on the LEFT ventral thecal sac and t raversing LEFT L4 and L5 nerve roots. Disc material measures approximately 6.5 x 11.3 x 12.3 mm AP by transverse by craniocaudal. Recommend spine surgery cons ultation. See bookmarked images. 2. Findings are otherwise similar to previous. 3. Mild central canal stenosis L2-L3 and L3-L4 similar to previous.. 4. Tiny RIGHT foraminal protrusions L2-3 with mild RIGHT foraminal narrowing. 5. Mild bilateral 3-4 foraminal narrowing with small foraminal protrusions.
--- NOTE | 2024-05-06 08:00 | NM_ITS ---
WS: [id number] NUCLEAR MEDICINE BONE SCAN Radiopharmaceutical: 26.8 Tc-99m MDP mCi IV Injection site: Antecubital Postinjection imaging delay: 1 hr CLINICAL INFORMATION: increasing back pain and left rib pain COMPARISON: 2021 FINDINGS: Bone lesions: Tiny faint punctate focus of uptake in the anterior LEFT rib approximately 10th rib. Th is is not typical for metastatic disease. Recommend correlation for rib trauma Soft tissue contours: Normal. Kidneys: Normal. Other findings: Degenerative type uptake AC joints and sternoclavicular joints. Prior C-spine fusion C4-C6 NM/NM bone scan whole body* [id number] IMPRESSION: 1. Tiny faint punctate focus of uptake in the anterior LEFT approximately 10th rib. Recommend correlation for rib trauma. This is not typical for metastatic disease. 2. No other suspicious findings.
== END 2024-05-24 23:59 | disposition home or self-care (01) ==
LOC: RAD 08:13 → ONCMED 09:26
PROVIDERS: Internal Medicine Hematology & Oncology; PCP Nurse Practitioner Family; Visit Provider Nurse Practitioner Family
DX: C79.82 Secondary malignant neoplasm of genital organs (principal); Z53.9 Procedure and treatment not carried out, unspecified reason; R93.7 Abnormal findings on diagnostic imaging of other parts of musculoskeletal system
CPT/HCPCS: 36415; 72148; 78306; 80053; 83615; 84153; 84403; 85025; 99214; A9561

== ENCOUNTER → 2024-06-04 14:24 | Outpatient (BNVA) | payer MEDICARE, SELFPAY | PROVIDERS: PCP Nurse Practitioner Family; Visit Provider Nurse Practitioner Family | DX: J06.9 Acute upper respiratory infection, unspecified (principal); J11.1 Influenza due to unidentified influenza virus with other respiratory manifestations | CPT/HCPCS: 87400 ==

== ENCOUNTER 2024-07-08 02:29 | Emergency (ER) | payer MEDICARE, SELFPAY ==
[2024-07-08 02:31] VITALS: BP 124/85; PULSE 75; RESP 18; TEMP 36.5; O2SAT 97; BMI 31.5
[2024-07-08 02:37] VITALS: BP 124/85; PULSE 75; RESP 18; TEMP 36.5; O2SAT 97
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
[2024-07-08 02:49] LABS: Basophils # 0.1 10^3/uL (0.0-0.1); Basophils % 1.3 %; Eosinophils # 0.1 10^3/uL (0.0-0.8); Eosinophils % 1.3 %; Hematocrit 51.5 % (37-53); Lymphocytes # 2.5 10^3/uL (0.8-4.8); Lymphocytes % 46.5 %; Mean Corpuscular HGB Conc 33.4 g/dL (30-55); Mean Corpuscular Hemoglobin 30.4 pg (27-33); Mean Corpuscular Volume 91.2 fl (82-101); Mean Platelet Volume 8.3 fL (7.4-10.4); Monocytes # 0.4 10^3/uL (0.2-0.9); Monocytes % 7.8 %; Neutrophils # 2.22 10^3/uL (1.8-7.7); Neutrophils % 42.2 %; Nucleated Red Blood Cells % 0 %; Platelet Count 277 10^3/cmm (157-399); Red Blood Count 5.65 10^6/uL (3.85-5.65); Red Cell Distribution Width 12.6 % (12.1-15.1); White Blood Count 5.27 10^3/uL (3.29-11.43)
[2024-07-08 03:05] LABS: Alanine Aminotransferase 28 U/L (0-41); Albumin Level 4.3 g/dL (3.5-5.2); Alcohol Level 157 mg/dL (0-10); Alkaline Phosphatase 121 U/L (40-130); Blood Urea Nitrogen 6 mg/dL (6-20); Carbon Dioxide 19 mmol/L (22-29); Chloride 105 mmol/L (98-107); Creatinine Clr Calc Pharmacy 97.6687; Globulin 3.4 g/dL (1.3-4.6); Glomerular Filtration Rate 77.3 mL/min (90-130); Glucose 96 mg/dL (65-115); Osmolality Calculated 281 mOsm/kg (285-295); Sodium 137 mmol/L (136-145); Total Bilirubin 0.3 mg/dL (0.15-1.2); Total Protein 7.7 g/dL (6.6-8.7)
[2024-07-08 03:06] LABS: Anion Gap 17.7 (5-19); Aspartate Amino Transferase 25 U/L (0-40); Potassium 4.7 mmol/L (3.5-5.1)
[2024-07-08 03:40] LABS: Bilirubin Urine Negative (Negative); Blood Urine Negative (Negative); Glucose Urine UA Negative (Normal); Ketones Urine Trace (Negative); Leukocyte Esterase Urine Negative (Negative); Nitrate Urine Negative (Negative); Protein Urine Negative (Negative); Specific Gravity, Urine 1.009 (1.005-1.030); Urine Appearance Clear (CLEAR); Urine Color Yellow (Yellow); Urobilinogen Urine 0.2 mg/dL (Negative)
[2024-07-08 03:45] LABS: Add Urine Microscopic? YES; Bacteria Urine None Seen /hpf; Hyaline Casts Urine 0.81 /lpf; RBC Urine 0-2 /hpf (0-2); Squamous Epithelial Cell Urine 0-5 /hpf (0-5); WBC Urine 0-5 /hpf (0-5)
[2024-07-08 03:47] LABS: Amphetamines Screen Urine Negative (Negative); Barbiturates Screen Urine Negative (Negative); Benzodiazepines Screen Urine Negative (Negative); Cocaine Screen Urine Negative (Negative); Opiate Screen Urine Negative (Negative); PCP Screen Urine Negative (Negative); THC Screen Urine Negative (Negative)
[2024-07-08 04:00] VITALS: BP 117/74; PULSE 88; RESP 16; O2SAT 96
[2024-07-08 05:29] VITALS: BP 117/70; PULSE 88; O2SAT 96
== END 2024-07-08 05:34 | disposition home or self-care (01) ==
PROVIDERS: Emergency Provider Family Medicine; PCP Nurse Practitioner Family
DX: R45.851 Suicidal ideations (principal); F10.129 Alcohol abuse with intoxication, unspecified; Y90.6 Blood alcohol level of 120-199 mg/100 ml
CPT/HCPCS: 80053; 80306; 80307; 81001; 85025; 99285

== ENCOUNTER 2024-07-24 07:40 | Oncology outpatient (recurring) (ONCR) | payer MEDICARE, SELFPAY ==
[2024-07-24 08:13] LABS: Basophils # 0.1 10^3/uL (0.0-0.1); Basophils % 0.9 %; Eosinophils # 0.1 10^3/uL (0.0-0.8); Eosinophils % 1.8 %; Hematocrit 46.2 % (37-53); Lymphocytes # 1.6 10^3/uL (0.8-4.8); Lymphocytes % 29.4 %; Mean Corpuscular HGB Conc 34.2 g/dL (30-55); Mean Corpuscular Hemoglobin 30.5 pg (27-33); Mean Corpuscular Volume 89.2 fl (82-101); Mean Platelet Volume 8.3 fL (7.4-10.4); Monocytes # 0.5 10^3/uL (0.2-0.9); Monocytes % 8.5 %; Neutrophils % 59.2 %; Nucleated Red Blood Cells % 0 %; Platelet Count 231 10^3/cmm (157-399); Red Blood Count 5.18 10^6/uL (3.85-5.65); Red Cell Distribution Width 12.3 % (12.1-15.1); White Blood Count 5.41 10^3/uL (3.29-11.43)
[2024-07-24 08:39] LABS: Alanine Aminotransferase 39 U/L (0-41); Albumin Level 4.3 g/dL (3.5-5.2); Alkaline Phosphatase 111 U/L (40-130); Anion Gap 13.1 (5-19); Aspartate Amino Transferase 28 U/L (0-40); Blood Urea Nitrogen 10 mg/dL (6-20); Calcium 8.6 mg/dL (8.5-10.5); Carbon Dioxide 25 mmol/L (22-29); Chloride 101 mmol/L (98-107); Creatinine Clr Calc Pharmacy 88.6573; Globulin 2.8 g/dL (1.3-4.6); Glomerular Filtration Rate 69.2 mL/min (90-130); Glucose 124 mg/dL (65-115); Osmolality Calculated 280 mOsm/kg (285-295); Potassium 4.1 mmol/L (3.5-5.1); Prostate Specific Antigen 0.346 ng/mL (0-4); Sodium 135 mmol/L (136-145); Testosterone Total 377.1 ng/dL (193-740); Total Bilirubin 0.7 mg/dL (0.15-1.2); Total Protein 7.1 g/dL (6.6-8.7)
== END 2024-08-21 23:59 | disposition home or self-care (01) ==
PROVIDERS: Nurse Practitioner Family; PCP Nurse Practitioner Family; Visit Provider Nurse Practitioner Family
DX: Z08 Encounter for follow-up examination after completed treatment for malignant neoplasm (principal); Z85.46 Personal history of malignant neoplasm of prostate; M54.50 Low back pain, unspecified; R97.20 Elevated prostate specific antigen [PSA]; Z92.3 Personal history of irradiation; Z92.25 Personal history of immunosuppression therapy; Z92.23 Personal history of estrogen therapy
CPT/HCPCS: 36415; 80053; 84153; 84403; 85025; 99213

== ENCOUNTER 2024-10-23 11:41 | Oncology outpatient (recurring) (ONCR) | payer MEDICARE, SELFPAY ==
[2024-10-23 12:17] LABS: Hematocrit 45.3 % (37-53); Hemoglobin 15.40 g/dL (11.27-16.99); Mean Corpuscular HGB Conc 34.0 g/dL (30-55); Mean Corpuscular Hemoglobin 30.3 pg (27-33); Mean Corpuscular Volume 89.2 fl (82-101); Nucleated Red Blood Cells % 0 %; Platelet Count 236 10^3/cmm (157-399); Red Blood Count 5.08 10^6/uL (3.85-5.65); White Blood Count 5.63 10^3/uL (3.29-11.43)
[2024-10-23 13:33] LABS: Alanine Aminotransferase 16 U/L (0-41); Albumin Level 4.1 g/dL (3.5-5.2); Alkaline Phosphatase 132 U/L (40-130); Anion Gap 15.7 (5-19); Aspartate Amino Transferase 12 U/L (0-40); Blood Urea Nitrogen 9 mg/dL (6-20); Calcium 8.8 mg/dL (8.5-10.5); Carbon Dioxide 25 mmol/L (22-29); Chloride 101 mmol/L (98-107); Creatinine Clr Calc Pharmacy 88.9823; Globulin 3.0 g/dL (1.3-4.6); Glucose 109 mg/dL (65-115); Osmolality Calculated 285 mOsm/kg (285-295); Potassium 3.7 mmol/L (3.5-5.1); Prostate Specific Antigen 0.619 ng/mL (0-4); Sodium 138 mmol/L (136-145); Total Protein 7.1 g/dL (6.6-8.7)
== END 2024-11-21 23:59 | disposition home or self-care (01) ==
PROVIDERS: PCP Nurse Practitioner Family; Visit Provider Internal Medicine
DX: Z08 Encounter for follow-up examination after completed treatment for malignant neoplasm (principal); Z85.46 Personal history of malignant neoplasm of prostate; R97.20 Elevated prostate specific antigen [PSA]; R03.0 Elevated blood-pressure reading, without diagnosis of hypertension; Z68.31 Body mass index [BMI] 31.0-31.9, adult
CPT/HCPCS: 36415; 80053; 84153; 84403; 85025; 99214

== ENCOUNTER 2025-02-26 08:59 | Oncology outpatient (recurring) (ONCR) | payer MEDICARE, SELFPAY ==
[2025-02-26 09:25] LABS: Hematocrit 41.9 % (37-53); Hemoglobin 14.60 g/dL (11.27-16.99); Mean Corpuscular HGB Conc 34.8 g/dL (30-55); Mean Corpuscular Hemoglobin 30.8 pg (27-33); Mean Corpuscular Volume 88.4 fl (82-101); Nucleated Red Blood Cells % 0 %; Platelet Count 218 10^3/cmm (157-399); Red Blood Count 4.74 10^6/uL (3.85-5.65); White Blood Count 5.19 10^3/uL (3.29-11.43)
[2025-02-26 09:59] LABS: Alanine Aminotransferase 19 U/L (0-41); Albumin Level 4.1 g/dL (3.5-5.2); Alkaline Phosphatase 98 U/L (40-130); Anion Gap 15.1 (5-19); Aspartate Amino Transferase 16 U/L (0-40); Blood Urea Nitrogen 10 mg/dL (6-20); Calcium 8.7 mg/dL (8.5-10.5); Carbon Dioxide 23 mmol/L (22-29); Chloride 104 mmol/L (98-107); Globulin 2.7 g/dL (1.3-4.6); Glucose 107 mg/dL (65-115); Osmolality Calculated 286 mOsm/kg (285-295); Potassium 4.1 mmol/L (3.5-5.1); Prostate Specific Antigen 0.340 ng/mL (0-4); Sodium 138 mmol/L (136-145); Total Protein 6.8 g/dL (6.6-8.7)
== END 2025-03-23 23:59 | disposition home or self-care (01) ==
PROVIDERS: PCP Nurse Practitioner Family; Visit Provider Internal Medicine
DX: Z08 Encounter for follow-up examination after completed treatment for malignant neoplasm (principal); Z85.46 Personal history of malignant neoplasm of prostate; R97.20 Elevated prostate specific antigen [PSA]; Z92.3 Personal history of irradiation
CPT/HCPCS: 36415; 80053; 84153; 84403; 85025; 99213